=== PATIENT | female | born 1945 | race Caucasian/White ===

== ENCOUNTER → 2016-12-31 | Outpatient (CLI) | payer OTHER, MEDICARE ==
[~2016-12-31] MED LIST: ASPEC325 PO; ATV/1 PO; BUTA-56 PO; CALC12502 PO; CHOL100010 PO; FISHOIL PO; FLUO20CA35 PO; FLUO40CA8 PO; FOLI400T41 PO; FURO40TA3 PO; HYDR-3124 PO; MULT-506 PO; ONDA8TAB62 SL; OXYC-106 PO; PHEN-876 PO; PHN/25 PO; PRAV10TA39 PO; RISE150T PO; SAMBUCOL SL; SIME80CH PO; SNK PO; SPIR50TA3 PO; ZOLP10TA PO
[2016-12-31 14:06] LABS: ALT/SGPT 34 U/L (12-78); AST/SGOT 25 U/L (15-37); BLOOD UREA NITROGEN 16 mg/dl (7-18); CALCIUM 9.5 mg/dl (8.5-10.1); CARBON DIOXIDE 24 mmol/L (21-32); CHLORIDE 106 mmol/L (98-107); CHOLESTEROL 203 mg/dl (0-200); CREATININE 0.86 mg/dl (0.60-1.20); GLUCOSE 111 mg/dl (70-99); POTASSIUM 3.5 mmol/L (3.5-5.1); SODIUM 141 mmol/L (136-145); TRIGLYCERIDES 195 mg/dl (0-150); VERY LOW DENSITY LIPOPROT CALC 39 mg/dl
[2016-12-31 14:12] LABS: ALB/GLOB RATIO 1.3 (0.9-2); ALKALINE PHOSPHATASE 80 U/L (45-117); CHOLESTEROL/HDL RATIO 5.3; HDL CHOLESTEROL 38 mg/dl; LDL CHOLESTEROL CALCULATED 126 mg/dl
[2016-12-31 14:20] LABS: ESTIMATED AVERAGE GLUCOSE 123 mg/dl; HA1C FLAG Normal (Normal)
--- NOTE | 2017-01-05 10:46 | CODING QUERY MEDICAL NECESSITY ---
SUPPORTING DIAGNOSIS NEEDED A supporting diagnosis is required for the test/procedure performed on this patient in order for us to be reimbursed by the patient's insurance. Please provide a supporting diagnosis for the following test/procedure listed below next to the test name along with your signature. *If there is no additional diagnosis for this patient that would support the following test/procedure please document that below next to the test/procedure. Test(s)/Procedure(s) that require a supporting diagnosis: * GLYCATED HEMOGLOBIN DIAGNOSIS: * DOS: 12/31/16 Provider Signature: Date: Thank you Katherine Dye Health Information Management Once completed, please kindly fax back to [phone] For questions please call [phone]
== END | disposition home or self-care (01) ==
LOC: C.LABBC 10:40
PROVIDERS: ATTEND Internal Medicine
DX: Z00.00 Encounter for general adult medical examination without abnormal findings (principal); M81.0 Age-related osteoporosis without current pathological fracture; E78.5 Hyperlipidemia, unspecified; I10 Essential (primary) hypertension; R73.03 Prediabetes

== ENCOUNTER → 2017-01-08 | Outpatient (CLI) | payer OTHER, MEDICARE ==
[~2017-01-08] MED LIST changes: +OPTIRAY 320 IV PRN
--- NOTE | 2017-01-08 14:23 | DIAGNOSTIC IMAGING REPORT ---
CT ABD/PELVIS IV CONTRAST ONLY CLINICAL HISTORY: Lower abdominal pain. COMPARISON STUDY: 01/13/2013 TECHNIQUE: Following the IV administration of 117 mL of Optiray-320, CT scan of the abdomen and pelvis was performed from the lung bases to the proximal femurs. Images are reviewed in the axial, sagittal, and coronal planes. IV contrast was administered without complication. CT DOSE: 549.40 mGy.cm FINDINGS: Lower chest: The heart is normal in size and configuration, without pericardial effusion. The lung bases and pleural spaces are clear. Liver: There is mild hepatic steatosis. No focal masses are visualized. Gallbladder: Unremarkable. Spleen: There is an area of scarring involving the lower pole the spleen. Pancreas: Unremarkable. Adrenal glands: Unremarkable. Kidneys: There are bilateral renal cysts. The largest cyst in the left measures 7.8 cm. The largest cyst on the right measures 39 mm. There is an indeterminate 9 mm lower pole right renal hypodensity which exceeds water attenuation. This has a Hounsfield attenuation value of 65. This lesion was present on the prior 2012 study when it measured 8 mm. Bowel: There are no transition zones indicate bowel obstruction. There is no evidence of acute diverticulitis. The appendix is felt to be normal. Peritoneum: There is no intraperitoneal free air or abdominal ascites. Vasculature: The abdominal aorta is normal in course and caliber. Adenopathy: None. Pelvic viscera: The uterus appears surgically absent. 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 IMPRESSION: 1. No evidence of bowel obstruction. No evidence of free air 2. Normal appendix 3. Mild hepatic steatosis 4. Lower pole splenic scarring 5. Bilateral renal cysts 6. Indeterminate 9 mm lower pole right renal hypodensity. This lesion measures 8 mm and 2013 7. Surgically absent uterus Electronically signed by: Rashard Garcia M.D. 01/08/2017 2:22 PM Dictated Date/Time: 01/08/2017 2:04 PM
== END | disposition home or self-care (01) ==
LOC: C.CTS 12:53
PROVIDERS: ATTEND Internal Medicine
DX: R10.9 Unspecified abdominal pain (principal); K76.0 Fatty (change of) liver, not elsewhere classified; N28.1 Cyst of kidney, acquired

== ENCOUNTER → 2017-03-11 | Outpatient (CLI) | payer OTHER, MEDICARE ==
[~2017-03-11] MED LIST changes: -OPTIRAY 320 IV PRN
== END | disposition home or self-care (01) ==
LOC: C.PATHSPEC 17:29
PROVIDERS: ATTEND Dentist Oral and Maxillofacial Surgery
DX: M27.2 Inflammatory conditions of jaws (principal)

== ENCOUNTER → 2017-07-01 | Outpatient (CLI) | payer OTHER, MEDICARE ==
--- NOTE | 2017-07-01 16:45 | DIAGNOSTIC IMAGING REPORT ---
LUMBAR SPINE W/O CONTRAST CLINICAL HISTORY: 71 years-old Female presenting with SPINAL STENOSIS. TECHNIQUE: Multisequence, multiplanar MR imaging of the lumbar spine was performed without the use of intravenous contrast. IV contrast: None. COMPARISON: 05/08/[address] from 01/08/2017. FINDINGS: Localizer images: Multiple bilateral renal cysts, the largest on the left measuring over 8 cm. Dextroscoliotic curvature of the lumbar spine. Normal lumbar lordosis. T2 hyperintense, T1 hypointense endplate changes noted eccentrically on the left at L2-3 consistent with bony edema. This was present on prior exam, although slightly increased from prior. There is also increased signal intensity within the L2-3 disc at this level. No significant paraspinal inflammatory change. Remaining vertebral bodies demonstrate normal height, alignment, and bone marrow signal intensity. Intervertebral disc desiccation noted at L1-2. Altered level degenerative changes detailed below: L1-2: Small disc bulge, ligamentum flavum hypertrophy, and right facet arthropathy results in mild bilateral neural foraminal narrowing. Mild effacement of the ventral thecal sac without significant spinal canal narrowing. L2-3: Disc bulge and ligamentum flavum hypertrophy result in mild right and moderate left neural foraminal narrowing. Mild circumferential effacement of the thecal sac with preservation of CSF. L3-4: Disc bulge, ligamentum flavum hypertrophy, and left greater than right facet arthropathy result in mild right and moderate to severe left neural foraminal narrowing. Mass effect on the exiting left L3 nerve root. Near complete effacement of the thecal sac secondary to circumferential spinal canal narrowing. L4-5: Disc bulge, ligament flavum hypertrophy, and facet arthropathy result in mild right neural foraminal narrowing and near complete effacement of the thecal sac secondary to circumferential spinal canal narrowing. L5-S1: Disc bulge with eccentric per disc protrusion on the right causing right lateral recess effacement. Slight cranial migration also noted of the protruded disc fragment. This is new from prior exam. This results in mass effect on the exiting right L5 nerve root, although the neural foramina overall are not significantly narrowed. Right greater than left facet arthropathy also noted. Spinal cord ends in good position at the superior endplate of L1. Cauda equina has a buckled appearance that is not is similar to prior exam. No paraspinal edema noted. IMPRESSION: 1. Multilevel degenerative changes, the majority which have not progressed since the prior exam in 2016. However, interval development of new right eccentric disc protrusion with cranial migration at L5-S1 with resultant mass effect on the exiting right L5 nerve root. 2. Varying degrees of neural foraminal and spinal canal narrowing as above. 3. Endplate edema eccentrically on the left at L2-3 with associated increased signal intensity within the L2-3 disc. Although these changes are increased from prior, some degree was present on the prior exam. This is felt to most likely be degenerative in etiology in the absence of infectious symptoms. Electronically signed by: Mike Craig M.D. 07/01/2017 4:44 PM Dictated Date/Time: 07/01/2017 4:33 PM
== END | disposition home or self-care (01) ==
LOC: C.MRIBC 15:44
PROVIDERS: ATTEND Orthopaedic Surgery Orthopaedic Surgery of the Spine
DX: M48.06 Spinal stenosis, lumbar region (principal); Z12.31 Encounter for screening mammogram for malignant neoplasm of breast

== ENCOUNTER → 2017-07-01 | Outpatient (CLI) | payer OTHER, MEDICARE ==
--- NOTE | 2017-07-02 14:31 | MAMMOGRAPHY REPORT ---
BILATERAL DIGITAL SCREENING MAMMOGRAM TOMOSYNTHESIS WITH CAD: 07/01/2017 CLINICAL HISTORY: Asymptomatic. Personal history of breast cancer. TECHNIQUE: Breast tomosynthesis in addition to standard 2D mammography was performed. Current study was also evaluated with a Computer Aided Detection (CAD) system. COMPARISON: Comparison is made to exams dated: 06/25/2016 mammogram, 05/13/2015 mammogram, 05/10/2014 m ammogram, 05/09/2013 mammogram, 03/30/2012 mammogram, and 03/26/2011 mammogram - [facility] enter. BREAST COMPOSITION: The tissue of both breasts is almost entirely fatty. FINDINGS: No suspicious masses, calcifications, or areas of architectural distortion are noted in ei ther breast. There has been no significant interval change compared to prior exams. There are stable postsurgical changes in the left breast from prior lumpectomy, including coarse benign dystrophic ca lcifications at the lumpectomy bed. IMPRESSION: ACR BI-RADS CATEGORY 2: BENIGN There is no mammographic evidence of malignancy. A 1 year screening mammogram is recommended. The pa tient will receive written notification of the results. Approximately 10% of breast cancers are not detected with mammography. A negative mammographic report should not delay biopsy if a clinically suggestive mass is present. Qiana Burrows M.D. /:07/01/2017 15:36:57 Creative/Art Director: Shay Santana M, [facility] letter sent: Normal 1/2 BI-RADS Code: ACR BI-RADS Category 2: Benign
== END | disposition home or self-care (01) ==
LOC: C.MAMM 14:02
PROVIDERS: ATTEND Obstetrics & Gynecology
DX: Z12.31 Encounter for screening mammogram for malignant neoplasm of breast (principal)

== ENCOUNTER → 2017-07-23 | Outpatient (CLI) | payer OTHER, MEDICARE ==
[2017-07-23 16:56] LABS: ALT/SGPT 27 U/L (12-78); BLOOD UREA NITROGEN 21 mg/dl (7-18); BUN/CREATININE RATIO 21.2 (10-20); CALCIUM 10.1 mg/dl (8.5-10.1); CARBON DIOXIDE 30 mmol/L (21-32); CHLORIDE 103 mmol/L (98-107); CHOLESTEROL 240 mg/dl (0-200); CREATININE 0.97 mg/dl (0.60-1.20); GLUCOSE 105 mg/dl (70-99); POTASSIUM 3.4 mmol/L (3.5-5.1); SODIUM 140 mmol/L (136-145); TRIGLYCERIDES 202 mg/dl (0-150); VERY LOW DENSITY LIPOPROT CALC 40 mg/dl
[2017-07-23 16:59] LABS: ALB/GLOB RATIO 1.2 (0.9-2); ALKALINE PHOSPHATASE 68 U/L (45-117); AST/SGOT 23 U/L (15-37); CHOLESTEROL/HDL RATIO 5.9; HDL CHOLESTEROL 41 mg/dl; LDL CHOLESTEROL CALCULATED 159 mg/dl
[2017-07-24 08:56] LABS: ESTIMATED AVERAGE GLUCOSE 120 mg/dl; HA1C FLAG Normal (Normal)
== END | disposition home or self-care (01) ==
LOC: C.LABBC 13:12
PROVIDERS: ATTEND Internal Medicine
DX: E78.5 Hyperlipidemia, unspecified (principal); R73.03 Prediabetes

== ENCOUNTER → 2017-11-29 | Outpatient (CLI) | payer OTHER, MEDICARE ==
[2017-11-29 17:19] LABS: BLOOD UREA NITROGEN 18 mg/dl (7-18); CALCIUM 9.4 mg/dl (8.5-10.1); CARBON DIOXIDE 28 mmol/L (21-32); CREATININE 0.95 mg/dl (0.60-1.20); GLUCOSE 93 mg/dl (70-99); POTASSIUM 3.7 mmol/L (3.5-5.1); SODIUM 138 mmol/L (136-145)
== END | disposition home or self-care (01) ==
LOC: C.LABBC 13:24
PROVIDERS: ATTEND Internal Medicine
DX: E87.6 Hypokalemia (principal)

== ENCOUNTER → 2018-01-11 | Outpatient (CLI) | payer OTHER, MEDICARE | END | disposition home or self-care (01) | LOC: C.LABSPEC 16:12 | PROVIDERS: ATTEND Physician Assistant | DX: J34.89 Other specified disorders of nose and nasal sinuses (principal) ==

== ENCOUNTER → 2018-03-28 | Outpatient (CLI) | payer OTHER, MEDICARE ==
[2018-03-28 17:06] LABS: ALT/SGPT 31 U/L (12-78); AST/SGOT 24 U/L (15-37); BLOOD UREA NITROGEN 20 mg/dl (7-18); CALCIUM 9.2 mg/dl (8.5-10.1); CARBON DIOXIDE 26 mmol/L (21-32); CHOLESTEROL 227 mg/dl (0-200); CREATININE 0.89 mg/dl (0.60-1.20); GLUCOSE 93 mg/dl (70-99); POTASSIUM 3.6 mmol/L (3.5-5.1); SODIUM 140 mmol/L (136-145)
[2018-03-28 17:10] LABS: LDL CHOLESTEROL CALCULATED 134 mg/dl
[2018-03-29 06:08] LABS: HEMOGLOBIN A1C 5.7 % (4.5-5.6)
== END | disposition home or self-care (01) ==
LOC: C.LABBC 13:25
PROVIDERS: ATTEND Internal Medicine
DX: E78.5 Hyperlipidemia, unspecified (principal); I10 Essential (primary) hypertension; R73.03 Prediabetes

== ENCOUNTER → 2018-06-01 | Outpatient (CLI) | payer OTHER, MEDICARE ==
[~2018-06-01] MED LIST changes: -ASPEC325 PO; -ATV/1 PO; +ATV2 PO; -BUTA-56 PO; -CALC12502 PO; -CHOL100010 PO; +CHOL1TAB42 PO; +CYM30 PO; -FISHOIL PO; -FLUO20CA35 PO; -FLUO40CA8 PO; -FOLI400T41 PO; +FOLI800T PO; +NITR-5 PO; +OMEG10007 PO; -ONDA8TAB62 SL; -OXYC-106 PO; +OYST500T47 PO; -PHEN-876 PO; -PHN/25 PO; -PRAV10TA39 PO; +PROM25TA9 PO; +PRVC/20 PO; -SAMBUCOL SL; -SIME80CH PO; -SNK PO; -SPIR50TA3 PO; +SPIR50TA5 PO
[2018-06-01 17:51] LABS: BASO % 0.6 %; BASO ABS # 0.05 K/uL (0-0.2); EOS % 2.8 %; EOS ABS # 0.22 K/uL (0-0.5); HEMATOCRIT 43.8 % (37-47); IG# 0.02 K/uL (0.00-0.02); LYMPH % 38.7 %; LYMPH ABS # 3.08 K/uL (1.2-3.4); MEAN CELL VOLUME 86.4 fL (80-100); MEAN CORPUSCULAR HEMOGLOBIN 29.6 pg (25-34); MEAN CORPUSCULAR HGB CONC 34.2 g/dl (32-36); MEAN PLATELET VOLUME 10.6 fL (7.4-10.4); MONO % 8.4 %; MONO ABS # 0.67 K/uL (0.11-0.59); NEUT % 49.2 %; NEUT ABS # 3.92 K/uL (1.4-6.5); PLATELET COUNT 291 K/uL (130-400); RED CELL DISTRIBUTION WIDTH CV 12.6 % (11.5-14.5); RED CELL DISTRIBUTION WIDTH SD 40.1 fL (36.4-46.3); WHITE BLOOD COUNT 7.96 K/uL (4.8-10.8)
[2018-06-01 18:05] LABS: BLOOD UREA NITROGEN 17 mg/dl (7-18); CALCIUM 9.2 mg/dl (8.5-10.1); CARBON DIOXIDE 29 mmol/L (21-32); CREATININE 0.89 mg/dl (0.60-1.20); GLUCOSE 84 mg/dl (70-99); SODIUM 137 mmol/L (136-145)
== END | disposition home or self-care (01) ==
LOC: C.LAB1850 16:44
PROVIDERS: ATTEND Nurse Practitioner Adult Health
DX: I10 Essential (primary) hypertension (principal); E87.6 Hypokalemia; N39.0 Urinary tract infection, site not specified; R11.2 Nausea with vomiting, unspecified

== ENCOUNTER → 2018-06-03 | Outpatient (CLI) | payer OTHER, MEDICARE ==
[~2018-06-03] MED LIST changes: -NITR-5 PO
[2018-06-03 17:16] LABS: BLOOD UREA NITROGEN 18 mg/dl (7-18); CALCIUM 9.3 mg/dl (8.5-10.1); CARBON DIOXIDE 27 mmol/L (21-32); CREATININE 0.84 mg/dl (0.60-1.20); GLUCOSE 103 mg/dl (70-99); SODIUM 142 mmol/L (136-145)
== END | disposition home or self-care (01) ==
LOC: C.LABBC 12:54
PROVIDERS: ATTEND Nurse Practitioner Adult Health
DX: E87.6 Hypokalemia (principal); I10 Essential (primary) hypertension

== ENCOUNTER → 2018-06-13 | Outpatient (CLI) | payer OTHER, MEDICARE ==
[2018-06-13 17:13] LABS: BLOOD UREA NITROGEN 21 mg/dl (7-18); CALCIUM 9.4 mg/dl (8.5-10.1); CARBON DIOXIDE 27 mmol/L (21-32); CREATININE 0.92 mg/dl (0.60-1.20); GLUCOSE 119 mg/dl (70-99); POTASSIUM 3.8 mmol/L (3.5-5.1); SODIUM 137 mmol/L (136-145)
== END | disposition home or self-care (01) ==
LOC: C.LABBC 14:50
PROVIDERS: ATTEND Nurse Practitioner Adult Health
DX: E87.6 Hypokalemia (principal); I10 Essential (primary) hypertension

== ENCOUNTER → 2018-07-04 | Outpatient (CLI) | payer OTHER, MEDICARE ==
--- NOTE | 2018-07-05 06:58 | MAMMOGRAPHY REPORT ---
BILATERAL DIGITAL SCREENING MAMMOGRAM TOMOSYNTHESIS WITH CAD: 07/04/2018 CLINICAL HISTORY: Asymptomatic. Personal history of breast cancer. TECHNIQUE: The study was acquired using full field digital technology and interpreted from soft copy. Breast tomosynthesis in addition to standard 2D mammography was performed. Current study was also ev aluated with a Computer Aided Detection (CAD) system. COMPARISON: Comparison is made to exams dated: 07/01/2017 mammogram, 06/25/2016 mammogram, 05/13/2015 m ammogram, 05/10/2014 mammogram, 05/09/2013 mammogram, and 03/30/2012 mammogram - [facility] enter. BREAST COMPOSITION: The tissue of both breasts is almost entirely fatty. FINDINGS: There is evidence of prior left breast and axillary surgery, with expected architectural di stortion, surgical clips and dystrophic calcification in the central left breast and surgical clips p rojecting over the superior left pectoralis muscle on the MLO view. There are mild vascular calcific ations in the left breast. No new suspicious mass, architectural distortion or cluster of microcalcif ications is seen bilaterally. IMPRESSION: ACR BI-RADS CATEGORY 1: NEGATIVE There is no mammographic evidence of malignancy. A 1 year screening mammogram is recommended.( 019) The patient will receive written notification of the results. Some breast cancers are not detected with mammography. A negative mammographic report should not robert y biopsy if a clinically suggestive mass is present. Rakel Valladares M.D. ay/:07/04/2018 16:08:51 Air Reduction Equipment Operator: RT Damian(Shay)(M), [facility] letter sent: Normal 1/2 BI-RADS Code: ACR BI-RADS Category 1: Negative
== END | disposition home or self-care (01) ==
LOC: C.MAMM 13:54
PROVIDERS: ATTEND Obstetrics & Gynecology
DX: Z12.31 Encounter for screening mammogram for malignant neoplasm of breast (principal)

== ENCOUNTER → 2018-07-07 | Outpatient (CLI) | payer OTHER, MEDICARE ==
[2018-07-07 16:59] LABS: BLOOD UREA NITROGEN 19 mg/dl (7-18); CALCIUM 10.1 mg/dl (8.5-10.1); CARBON DIOXIDE 28 mmol/L (21-32); CREATININE 0.84 mg/dl (0.60-1.20); GLUCOSE 92 mg/dl (70-99); POTASSIUM 3.4 mmol/L (3.5-5.1); SODIUM 137 mmol/L (136-145)
== END | disposition home or self-care (01) ==
LOC: C.LAB1850 15:19
PROVIDERS: ATTEND Internal Medicine Rheumatology
DX: E87.6 Hypokalemia (principal)

== ENCOUNTER 2024-07-03 15:40 | Inpatient (IN) ==
--- NOTE | 2024-07-03 16:00 | ED Triage Note ---
Date of Service July 03, 2024 Provider in Triage Author: Abi Delgado History of Present Illness This patient was briefly evaluated while in triage. An abbreviated physical exam was performed. This patient is a 78-year-old Female who presents to the ED for evaluation of "everything." States 5 days ago, she fell while getting up from the toilet. Landed on her ribs on the right side (rib fx 8 weeks ago.) Also c/o swelling of the right ankle that started 2 days ago. Physical Exam VITALS: Vitals are noted on the nurse's note and reviewed by myself. GENERAL: This is a 78 year old female, in no acute distress, nondiaphoretic, well-developed well-nourished. SKIN: No obvious rashes, edema, erythema HEAD: Normocephalic atraumatic. EYES: Conjunctivae without injection, sclerae without icterus. NECK: No JVD. LUNGS: No retractions or accessory muscle use. MUSCULOSKELETAL: Normal gait. NEURO: Patient was alert and oriented to person place and time. No focal neurological deficits. Initial orders for labs and / or imaging were placed and patient was placed in the waiting area until a bed is available. Please see further documentation for the full ED course.
--- NOTE | 2024-07-03 17:05 | XRay Report ---
XR ribs RT min 2V w CXR1V CLINICAL HISTORY: pain, fall 5 days ago. Right anterior rib pain. COMPARISON STUDY: Chest and right rib series 06/28/2024. FINDINGS: No pneumothorax. No pleural effusions. No focal lung consolidations to suggest a pneumonia. No evidence for pulmonary edema. The heart is normal in size. A moderate hiatus hernia is again note d. Healing right lateral eighth rib fractures again noted. There are acute right anterior lateral efra th and 10th rib fractures. IMPRESSION: 1. Acute right anterolateral ninth and 10th rib fractures. No pneumothorax. 2. Healing right lateral eighth rib fracture again noted. ACT 112: Negative or not required by law. Electronically signed by: Aiden Lindsay M.D. 07/03/2024 5:04 PM
--- NOTE | 2024-07-03 17:13 | XRay Report ---
RIGHT ANKLE 3 VIEWS CLINICAL HISTORY: Recent fall. Right ankle pain. FINDINGS: 3 views of the right ankle are obtained. No prior studies are available for comparison at t he time of dictation. The skeletal structures are osteopenic. No fracture is seen. The ankle mortise is intact. No joint effusion is identified. Soft tissue swelling is seen around the ankle, greatest o verlying the lateral malleolus. IMPRESSION: Soft tissue swelling with no radiographic evidence of acute fracture. Electronically signed by: Remigio Preston M.D. 07/03/2024 5:12 PM
[2024-07-03] MEDS: LIDOCAINE 5% 1 PATCH TD STA (17:49)
[2024-07-03] MEDS: ONDANSETRON 4 MG OD TAB PO STA (18:27)
[2024-07-03] MEDS: oxyCODONE HCL IR 5 MG TAB (IMMEDIATE RELEASE) PO STA (18:27)
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
[2024-07-03 19:32] LABS: Appearance Urine Clear (Clear); Bacteria Urine Automated None Seen (None Seen); Bilirubin Urine Negative (Negative); Blood Urine Negative (Negative); Cast Urine Automated 0-2 /lpf (0-2); Color Urine Yellow; Epithelial Cell Urine Auto 0-2 /hpf (0-2); Glucose Urine UA Negative (Negative); Ketones Urine Negative (Negative); Leukocyte Esterase Urine 1+ (Negative); Nitrite Urine Negative (Negative); Protein Urine Negative (Negative); RBC Urine Automated 0-2 /hpf (0-2); Specific Gravity Urine 1.024 (1.000-1.030); Urobilinogen Urine Negative (Negative); pH Urine 5.5 (4.5-7.5)
--- NOTE | 2024-07-03 20:19 | Ultrasound Report ---
Exam(s): US VENOUS RIGHT LOWER EXTREMITY EXAM: US Duplex Right Lower Extremity Veins CLINICAL HISTORY: Reason for exam: right leg swelling. TECHNIQUE: Real-time duplex ultrasound scan of the right lower extremity veins integrating B-mode two-dimensional vascular structure, Doppler spectral analysis, color flow Doppler imaging and compression. COMPARISON: No relevant prior studies available. FINDINGS: Deep veins: Unremarkable. No DVT in the visualized common femoral, femoral, proximal deep femoral or popliteal veins. The veins demonstrate normal color flow, are normally compressible, with normal phasic flow and/or augmentation response. Superficial veins: Unremarkable. No thrombus in the visualized great saphenous vein. Soft tissues: No acute findings. No popliteal cyst. IMPRESSION: Normal right lower extremity duplex venous ultrasound. Electronically signed by: Romeo Luong MD 07/03/24 20:18 PM
--- NOTE | 2024-07-03 20:22 | CT Scan Report ---
Exam(s): CT C SPINE EXAM: CT Cervical Spine Without Intravenous Contrast CLINICAL HISTORY: Reason for exam: fall. TECHNIQUE: Axial computed tomography images of the cervical spine without intravenous contrast. CTDI is 25.13 mGy and DLP is 474.53 mGy-cm. Automated exposure control was utilized for the study. A dose lowering technique was utilized adhering to the principles of ALARA. COMPARISON: No relevant prior studies available. FINDINGS: Vertebrae: Unremarkable. No acute fracture. Discs/spinal canal/neural foramina: Mild to moderate degenerative disc disease changes seen in the cervical spine. No spinal canal stenosis. Soft tissues: Unremarkable. IMPRESSION: No acute fracture Electronically signed by: Romeo Luong MD 07/03/24 20:21 PM
--- NOTE | 2024-07-03 20:24 | CT Scan Report ---
Exam(s): CT HEAD Without Contrast EXAM: CT Head Without Intravenous Contrast CLINICAL HISTORY: Reason for exam: fall. TECHNIQUE: Axial computed tomography images of the head/brain without intravenous contrast. CTDI is 36.79 mGy and DLP is 624.41 mGy-cm. Automated exposure control was utilized for the study. A dose lowering technique was utilized adhering to the principles of ALARA. COMPARISON: No relevant prior studies available. 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 No hemorrhage. Ventricles: Unremarkable. No ventriculomegaly. Bones/joints: Unremarkable. No acute fracture. Soft tissues: Unremarkable. Sinuses: Unremarkable as visualized. No acute sinusitis. Mastoid air cells: Unremarkable as visualized. No mastoid effusion. IMPRESSION: No acute findings in the head/brain. Electronically signed by: Romeo Luong MD 07/03/24 20:23 PM
--- NOTE | 2024-07-03 21:15 | Emergency Department Note ---
ED Visit Note I was consulted by the Advanced Practice Provider, REJI Martinez. I performed a substantive portion of the visit. This includes aspects of: History: Patient is a 78-year-old female presenting with right rib pain. Patient reports that 3 days ago she had a fall and landed on her right rib area and has been having increasing pain in that area. Reports that when she takes a deep breath that hurts worse. She also reporting some swelling in her bilateral lower extremities but worse on the right side. She denies any headache or changes in vision. She is not on any anticoagulation. Denies any recent cough or fevers. MDM: Very thorough workup was performed by the midlevel provider, including CT head and CT cervical spine which were both negative, ultrasound of the lower extremities was negative for DVT, as well as x-rays of the chest which showed acute right ninth and 10th rib fractures. Patient is emotionally labile and is expressing concern about going home because "something else must be wrong." She reports that she does not feel like she could go home like this. Explained to the patient that her workup is grossly unremarkable other than her 2 acute rib fractures. However, she does report multiple new complaints on reassessment. Will admit to hospital service for further evaluation and management. On my assessment in the ER, she is now also complaining of diffuse generalized joint aches and said this has been ongoing for the last few days. Denies any recent tick exposures. IV access was obtained and basic laboratory workup, including Lyme and further tickborne illness testing was ordered. Patient also now complaining of pain in her right lateral pelvis and x-ray of the pelvis was ordered..
[2024-07-03 22:22] LABS: Basophils # (auto) 0.03 K/uL (0.00-0.20); Basophils % (auto) 0.5 %; Eosinophils # (auto) 0.15 K/uL (0.00-0.50); Eosinophils % (auto) 2.5 %; Hematocrit (blood only) 33.3 % (37.0-47.0); Hemoglobin 10.4 g/dl (12.0-16.0); Immature Granulocytes # (auto) 0.03 K/uL (0.01-0.20); Immature Granulocytes % (auto) 0.5 %; Lymphocytes # (auto) 1.91 K/uL (1.20-3.40); Lymphocytes % (auto) 31.6 %; Mean Corpuscular Hemoglobin 24.8 pg (25.0-34.0); Mean Corpuscular Hgb Conc 31.2 g/dL (32.0-36.0); Mean Corpuscular Volume 79.5 fL (80.0-100.0); Mean Platelet Volume 9.6 fL (9.4-12.4); Monocytes # (auto) 0.62 K/uL (0.11-0.59); Monocytes % (auto) 10.2 %; Neutrophils # (auto) 3.31 K/uL (1.40-6.50); Neutrophils % (auto) 54.7 %; Platelet Count 217 K/uL (130-400); RDW Coefficient of Variation 17.6 % (11.5-14.5); RDW Standard Deviation 50.8 fL (36.4-46.3); Red Blood Count 4.19 M/uL (4.20-5.40); White Blood Count 6.05 K/ul (4.8-10.8)
[2024-07-03 22:40] LABS: Albumin Globulin Ratio 1.6 (0.9-2); BUN Creatinine Ratio 22.2 (10-20); Bilirubin,Total 0.4 mg/dl (0.2-1.0); Calcium 8.7 mg/dl (8.6-10.3); Creatinine Clr Calc Pharmacy 60.5 ml/min; Est GFR (African American) 81.8 ml/min; Est GFR (Non-African American) 70.5 ml/min; Globulin 2.5 gm/dl (2.5-4.0); Potassium 3.1 mmol/L (3.5-5.1); Total Protein 6.5 gm/dl (6.0-8.3)
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
[2024-07-04] MEDS ORDERED: BACLOFEN 10 MG TAB PO PRN (00:04)
[2024-07-04 00:30] LABS: Magnesium 2.1 mg/dl (1.7-2.4)
[2024-07-04] MEDS: LIDOCAINE 5% OINT 30 GM TUBE EXT STA (00:49)
[2024-07-04] MEDS ORDERED: ONDANSETRON 4 MG OD TAB PO PRN (01:31)
[2024-07-04] MEDS ORDERED: ALBUT/IPRATROP 3MG/0.5MG NEB 3 ML VIAL INH PRN (01:31)
[2024-07-04] MEDS ORDERED: BENZONATATE 100 MG CAPSULE PO PRN (01:31)
[2024-07-04] MEDS ORDERED: ALBUTEROL HFA 8 GM INHALER INH PRN (01:31)
[2024-07-04] MEDS ORDERED: hydrOXYzine HCl 25 MG TAB PO PRN (01:31)
[2024-07-04] MEDS ORDERED: PROMETHAZINE HCL 25 MG TAB PO PRN (01:31)
[2024-07-04] MEDS ORDERED: ARTIFICIAL TEARS OP PRN (01:43)
[2024-07-04] MEDS ORDERED: LORazepam 1 MG TAB PO PRN (01:44)
[2024-07-04] MEDS: ACETAMINOPHEN 325 MG TAB PO PRN (01:50)
[2024-07-04] MEDS: cefTRIAXone SODIUM 2,000 MG/50 ML BAG IV STA (02:11)
[2024-07-04] MEDS: POTASSIUM CHLORIDE / WTR 10 MEQ/100 ML PLCT IV SCH (02:41)
[2024-07-04] MEDS: ZOLPIDEM TARTRATE 5 MG TAB PO ONE (03:14)
[2024-07-04] MEDS: oxyCODONE HCL IR 5 MG TAB (IMMEDIATE RELEASE) PO STA (03:19)
[2024-07-04 06:29] LABS: Basophils # (auto) 0.03 K/uL (0.00-0.20); Basophils % (auto) 0.5 %; Eosinophils # (auto) 0.18 K/uL (0.00-0.50); Eosinophils % (auto) 3.3 %; Hematocrit (blood only) 32.2 % (37.0-47.0); Hemoglobin 10.1 g/dl (12.0-16.0); Immature Granulocytes # (auto) 0.03 K/uL (0.01-0.20); Immature Granulocytes % (auto) 0.5 %; Lymphocytes % (auto) 36.2 %; Mean Corpuscular Hemoglobin 24.9 pg (25.0-34.0); Mean Corpuscular Hgb Conc 31.4 g/dL (32.0-36.0); Mean Corpuscular Volume 79.5 fL (80.0-100.0); Mean Platelet Volume 9.6 fL (9.4-12.4); Monocytes # (auto) 0.55 K/uL (0.11-0.59); Monocytes % (auto) 9.9 %; Neutrophils # (auto) 2.74 K/uL (1.40-6.50); Neutrophils % (auto) 49.6 %; Platelet Count 215 K/uL (130-400); RDW Coefficient of Variation 17.8 % (11.5-14.5); RDW Standard Deviation 51.5 fL (36.4-46.3); Red Blood Count 4.05 M/uL (4.20-5.40); White Blood Count 5.53 K/ul (4.8-10.8)
[2024-07-04 06:40] LABS: Albumin Level 3.7 gm/dl (3.4-5.0); BUN Creatinine Ratio 18.9 (10-20); Calcium 8.2 mg/dl (8.6-10.3); Creatinine Clr Calc Pharmacy 53.2 ml/min; Est GFR (Non-African American) 62.1 ml/min; Phosphorus 3.9 mg/dl (2.5-4.9); Potassium 3.7 mmol/L (3.5-5.1)
[2024-07-04] MEDS: ACETAMINOPHEN 500 MG TAB PO SCH (06:42)
[2024-07-04] MEDS: DICLOFENAC SOD 1% GEL 100 GM TUBE EXT SCH (07:51)
[2024-07-04] MEDS: LIDOCAINE 5% OINT 30 GM TUBE EXT SCH (07:51)
[2024-07-04] MEDS: DULoxetine HCL 60 MG CAP PO SCH (07:52)
[2024-07-04] MEDS: BUDESONIDE EC 3 MG CAP PO SCH (07:52)
[2024-07-04] MEDS: PRAVASTATIN SOD 40 MG TAB PO SCH (07:52)
[2024-07-04] MEDS: PANTOprazole 40 MG TAB PO SCH (07:52)
[2024-07-04] MEDS: SPIRONOLACTONE 25 MG TAB PO SCH (07:53)
--- NOTE | 2024-07-04 08:09 | XRay Report ---
SINGLE VIEW PELVIS; SINGLE VIEW RIGHT HIP CLINICAL HISTORY: Falls. Right hip pain. FINDINGS: An AP view of the pelvis and a frog-leg view of the right hip are correlated with pelvic CT dated 01/08/2017. The skeletal structures are osteopenic. There is no radiographic evidence of acute fracture involving the hips or bony pelvis. Mild arthritic change and joint space narrowing is seen i n the hips. The sacroiliac joints are normal. There is mild sclerotic change seen in the pubic symphy sis. Lumbosacral spondylosis is partially visualized. The overlying soft tissues are within normal li mits. Numerous phleboliths are seen in the pelvis. IMPRESSION: No acute bony abnormality is identified. Electronically signed by: Remigio Preston M.D. 07/04/2024 8:08 AM
--- NOTE | 2024-07-04 14:04 | Hospitalist Progress Note ---
Date of Service July 04, 2024 Assessment & Plan (1) Multiple fractures of ribs of right side: Plan: Patient presented to the ED on 07/03 for right sided rib cage pain after following off the toilet 1 week ago. Reviewed ribs/CXR 07/03: acute right anterolateral 9th and 10th rib fx. no pneumothorax. healing right lateral 8th rib fx noted. Unable to use Lidoderm patch due to allergy Trial of Lidoderm 5% gel twice daily Baclofen 5 mg p.o. 3 times daily as needed associated muscle spasm Acetaminophen 650 mg by mouth every 6 hours as needed for mild pain or fever Oxycodone 5 mg p.o. every 6 hours as needed for moderate pain (2) UTI (urinary tract infection): Plan: Stop Macrodantin, as it does not appear to be working, and likely is causing some contribution to imbalance Follow urine culture and sensitivity Ceftriaxone 2 g IV daily Reviewed CBC 07/04: WBC stable, hgb 10.1 AM CBC (3) Bilateral lower extremity edema: Plan: Patient endorses about 1 week of b/l LE edema Lasix on hold due to hypokalemia but was previously not taking for about 3 days due to urinary symptoms B/L Doppler reviewed 07/04: negative for acute DVT Echo reviewed 07/04: EF 60-65%, Mild panvalvular regurgitation (4) Hypokalemia: Plan: Potassium 3.1 on admission, magnesium 2.1 Likely contributing to abnormal sensations in hands and feet Give potassium chloride 10 mEq IV x 2, and recheck laboratories in a.m. Hold furosemide, continue spironolactone reviewed BMP 07/04: K 3.7, Mag 2 AM BMP Plan Chronic conditions: Anxiety- Continue duloxetine Vertigo/allergic symptoms- Multifactorial including all of the above, Continue albuterol sulfate HFA as needed, Tessalon Perles as needed Hydroxyzine as needed Microscopic colitis- Continue budesonide and omeprazole/pantoprazole Diet: Regular Code: full DVT prophylaxis: SCD's Disposition: anticipate discharge home 07/05. Discussed in detail w/ daughter at bedside 07/04 Admission and Anticipated Discharge Date Admission Date: July 03, 2024 Subjective Patient seen and examined this morning. Daughter at bedside. Patient reports prior to my examination she was experiencing an episode of vertigo. She states she had a thorough workup for this and was found to have an "infection" somewhere that physical therapy was able to manipulate out. Patient also endorses concern over the 30lb weight gain she has had happen over the last 4 months. She admits to experiencing b/l lower extremity edema within the past week. She hasn't taken her Lasix for a few days. She states that she was on this for a long time and is not sure why. She was experiencing urinary burning and frequency prior to coming to the hospital but this has since resolved. She reports she has also had diarrhea since decreasing her budesonide taper. Physical Exam 2 Constitutional: WD/WN, vitals as above Eyes: PERRL, conjunctivae normal, anicteric sclerae Respiratory: normal respiratory effort, lungs clear to auscultation Cardiovascular: RRR, no murmur, no edema Gastrointestinal (Abdomen): normal bowel sounds, soft, nontender, no hepatosplenomegaly Skin: no rashes, warm and dry Psychiatric: A+Ox3, euthymic affect Results & Data Results & Data Vital Signs (Past 12 Hours) Vital Signs Temp Pulse Pulse Resp BP BP Pulse Ox 07/04/24 11:35 36.4 C L 59 L 16 139/80 93 07/04/24 07:35 36.6 C 58 L 18 163/96 H 95 07/04/24 07:31 07/04/24 07:09 62 07/04/24 05:00 36.7 C 58 L 20 129/77 92 O2 Del Method 07/04/24 11:35 Room Air 07/04/24 07:35 Room Air 07/04/24 07:31 Room Air 07/04/24 07:09 07/04/24 05:00 Room Air Laboratory Results 07/04/24 05:39 07/04/24 05:39 Diagnostic Findings Ribs w/Chest X-Ray 07/03/24 16:00 XR ribs RT min 2V w CXR1V CLINICAL HISTORY: pain, fall 5 days ago. Right anterior rib pain. COMPARISON STUDY: Chest and right rib series 06/28/2024. FINDINGS: No pneumothorax. No pleural effusions. No focal lung consolidations to suggest a pneumonia. No evidence for pulmonary edema. The heart is normal in size. A moderate hiatus hernia is again noted. Healing right lateral eighth rib fractures again noted. There are acute right anterior lateral ninth and 10th rib fractures. IMPRESSION: 1. Acute right anterolateral ninth and 10th rib fractures. No pneumothorax. 2. Healing right lateral eighth rib fracture again noted. ACT 112: Negative or not required by law. Electronically signed by: Aiden Lindsay M.D. 07/03/2024 5:04 PM Ankle X-Ray 07/03/24 16:01 RIGHT ANKLE 3 VIEWS CLINICAL HISTORY: Recent fall. Right ankle pain. FINDINGS: 3 views of the right ankle are obtained. No prior studies are available for comparison at the time of dictation. The skeletal structures are osteopenic. No fracture is seen. The ankle mortise is intact. No joint effusion is identified. Soft tissue swelling is seen around the ankle, greatest overlying the lateral malleolus. IMPRESSION: Soft tissue swelling with no radiographic evidence of acute fracture. Electronically signed by: Remigio Preston M.D. 07/03/2024 5:12 PM Venous Doppler Study 07/03/24 18:07 Exam(s): US VENOUS RIGHT LOWER EXTREMITY EXAM: US Duplex Right Lower Extremity Veins CLINICAL HISTORY: Reason for exam: right leg swelling. TECHNIQUE: Real-time duplex ultrasound scan of the right lower extremity veins integrating B-mode two-dimensional vascular structure, Doppler spectral analysis, color flow Doppler imaging and compression. COMPARISON: No relevant prior studies available. FINDINGS: Deep veins: Unremarkable. No DVT in the visualized common femoral, femoral, proximal deep femoral or popliteal veins. The veins demonstrate normal color flow, are normally compressible, with normal phasic flow and/or augmentation response. Superficial veins: Unremarkable. No thrombus in the visualized great saphenous vein. Soft tissues: No acute findings. No popliteal cyst. IMPRESSION: Normal right lower extremity duplex venous ultrasound. Electronically signed by: Romeo Luong MD 07/03/24 20:[address] 07/03/24 18:08 Exam(s): CT C SPINE EXAM: CT Cervical Spine Without Intravenous Contrast CLINICAL HISTORY: Reason for exam: fall. TECHNIQUE: Axial computed tomography images of the cervical spine without intravenous contrast. CTDI is 25.13 mGy and DLP is 474.53 mGy-cm. Automated exposure control was utilized for the study. A dose lowering technique was utilized adhering to the principles of ALARA. COMPARISON: No relevant prior studies available. FINDINGS: Vertebrae: Unremarkable. No acute fracture. Discs/spinal canal/neural foramina: Mild to moderate degenerative disc disease changes seen in the cervical spine. No spinal canal stenosis. Soft tissues: Unremarkable. IMPRESSION: No acute fracture Electronically signed by: Romeo Luong MD 07/03/24 20:[address] 07/03/24 18:08 Exam(s): CT HEAD Without Contrast EXAM: CT Head Without Intravenous Contrast CLINICAL HISTORY: Reason for exam: fall. TECHNIQUE: Axial computed tomography images of the head/brain without intravenous contrast. CTDI is 36.79 mGy and DLP is 624.41 mGy-cm. Automated exposure control was utilized for the study. A dose lowering technique was utilized adhering to the principles of ALARA. COMPARISON: No relevant prior studies available. 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 No hemorrhage. Ventricles: Unremarkable. No ventriculomegaly. Bones/joints: Unremarkable. No acute fracture. Soft tissues: Unremarkable. Sinuses: Unremarkable as visualized. No acute sinusitis. Mastoid air cells: Unremarkable as visualized. No mastoid effusion. IMPRESSION: No acute findings in the head/brain. Electronically signed by: Romeo Luong MD 07/03/24 20:23 PM Hip/Pelvis X-Ray 07/03/24 21:30 SINGLE VIEW PELVIS; SINGLE VIEW RIGHT HIP CLINICAL HISTORY: Falls. Right hip pain. FINDINGS: An AP view of the pelvis and a frog-leg view of the right hip are correlated with pelvic CT dated 01/08/2017. The skeletal structures are osteopenic. There is no radiographic evidence of acute fracture involving the hips or bony pelvis. Mild arthritic change and joint space narrowing is seen in the hips. The sacroiliac joints are normal. There is mild sclerotic change seen in the pubic symphysis. Lumbosacral spondylosis is partially visualized. The overlying soft tissues are within normal limits. Numerous phleboliths are seen in the pelvis. IMPRESSION: No acute bony abnormality is identified. Electronically signed by: Remigio Preston M.D. 07/04/2024 8:08 AM Venous Doppler Study 07/04/24 11:05 LEFT LOWER EXTREMITY VENOUS DOPPLER HISTORY: b/l leg edema COMPARISON STUDY: None. FINDINGS: There is normal compressibility, flow, and augmentation within the left lower extremity deep venous system. IMPRESSION: No DVT within the left lower extremity. ACT 112: Negative or not required by law. Electronically signed by: Aiden Lindsay M.D. 07/04/2024 3:08 PM PG Care Time/CCT Total # of Minutes Spent Total Time Spent with Patient: Total time spent is greater than 50% in coordination of care (as documented) at patient's floor/unit and/or counseling patient: Coding Level of Care Code 20255 SUB INP/OBS CARE 3/50MIN Diagnoses Closed fracture of multiple ribs of right side, initial encounter S22.41XA Encounter type: initial encounter Fracture type: closed Acute cystitis without hematuria N30.00 Urinary tract infection type: acute cystitis Hematuria presence: without hematuria Bilateral lower extremity edema R60.0 Hypokalemia E87.6 (1) Multiple fractures of ribs of right side Encounter type: initial encounter Fracture type: closed Qualified Code(s): S 22.41XA - Multiple fractures of ribs, right side, initial encounter for closed fracture (2) UTI (urinary tract infection) Urinary tract infection type: acute cystitis Hematuria presence: without hematuria Qualified Code(s): N30.00 - Acute cystitis without hematuria
--- NOTE | 2024-07-04 15:09 | Ultrasound Report ---
LEFT LOWER EXTREMITY VENOUS DOPPLER HISTORY: b/l leg edema COMPARISON STUDY: None. FINDINGS: There is normal compressibility, flow, and augmentation within the left lower extremity meredith p venous system. IMPRESSION: No DVT within the left lower extremity. ACT 112: Negative or not required by law. Electronically signed by: Aiden Lindsay M.D. 07/04/2024 3:08 PM
--- NOTE | 2024-07-04 15:23 | XCELERA ---
[id number] \\[id number]___[id number]
[2024-07-04] MEDS: oxyCODONE HCL IR 5 MG TAB (IMMEDIATE RELEASE) PO PRN (17:34)
[2024-07-04] MEDS: DULoxetine HCL 30 MG CAP PO SCH (20:22)
[2024-07-04] MEDS: cefTRIAXone SODIUM 2,000 MG/50 ML BAG IV SCH (21:43)
[2024-07-04] MEDS: KETOROLAC TROMETHAMINE 15 MG/ML VIAL IV ONE (22:35)
[2024-07-04] MEDS: ZOLPIDEM TARTRATE 5 MG TAB PO SCH (23:23)
[2024-07-05 06:37] LABS: Basophils # (auto) 0.04 K/uL (0.00-0.20); Basophils % (auto) 0.8 %; Eosinophils # (auto) 0.18 K/uL (0.00-0.50); Eosinophils % (auto) 3.4 %; Hematocrit (blood only) 33.1 % (37.0-47.0); Hemoglobin 10.3 g/dl (12.0-16.0); Immature Granulocytes # (auto) 0.04 K/uL (0.01-0.20); Immature Granulocytes % (auto) 0.8 %; Lymphocytes # (auto) 1.86 K/uL (1.20-3.40); Lymphocytes % (auto) 35.5 %; Mean Corpuscular Hemoglobin 25.2 pg (25.0-34.0); Mean Corpuscular Hgb Conc 31.1 g/dL (32.0-36.0); Mean Corpuscular Volume 80.9 fL (80.0-100.0); Mean Platelet Volume 9.6 fL (9.4-12.4); Monocytes # (auto) 0.57 K/uL (0.11-0.59); Monocytes % (auto) 10.9 %; Neutrophils # (auto) 2.55 K/uL (1.40-6.50); Neutrophils % (auto) 48.6 %; Platelet Count 225 K/uL (130-400); RDW Coefficient of Variation 17.8 % (11.5-14.5); RDW Standard Deviation 52.4 fL (36.4-46.3); Red Blood Count 4.09 M/uL (4.20-5.40); White Blood Count 5.24 K/ul (4.8-10.8)
[2024-07-05 07:11] LABS: Albumin Level 3.8 gm/dl (3.4-5.0); BUN Creatinine Ratio 14.9 (10-20); Calcium 8.6 mg/dl (8.6-10.3); Creatinine Clr Calc Pharmacy 51.1 ml/min; Est GFR (African American) 68.3 ml/min; Est GFR (Non-African American) 58.9 ml/min; Magnesium 2.2 mg/dl (1.7-2.4); Phosphorus 3.5 mg/dl (2.5-4.9); Potassium 3.9 mmol/L (3.5-5.1)
[2024-07-05] MEDS: CETIRIZINE HCL 10 MG TABLET PO PRN (08:44)
--- NOTE | 2024-07-05 10:54 | Discharge Summary ---
Discharge Summary Date of Service July 05, 2024 Principal Dx & Hospital Course #1 = Principal Diagnosis (1) Multiple fractures of ribs of right side: Age-related osteoporosis with current pathological fracture, R ribs Patient presented to the ED on 07/03 for right sided rib cage pain after following off the toilet 1 week ago. CXR from 07/03 revealed an acute right anterolateral 9th and 10th rib fracture. no pneumothorax and a healing lateral 8th rib fracture. Patient is unfortunately allergic to Lidoderm patch so Lidoderm 5% gel was trialed. She was given Tylenol q8h for pain and oxycodone q6h prn. She was instructed to take tylenol upon discharge and use oxycodone as needed for breakthrough pain. (2) UTI (urinary tract infection): Stop Macrodantin, as it does not appear to be working, and likely is causing some contribution to imbalance. She was placed on Rocephin inpatient and transitioned to Keflex outpatient to complete her abx course. Reviewed labs 07/05 including CBC and BMP which were stable. (3) Bilateral lower extremity edema: Patient endorses about 1 week of b/l LE edema. Patient has been on Lasix for about 20 years with unknown cause. About 4 days ago she stopped taking it due to urinary frequency issues from her UTI. She then subsequently developed b/l LE edema. B/L venous doppler was negative. Echo from 07/04 revealed EF of 60-65% and mild todd-valvular regurgitation. Lasix was resumed at her previous dose on 07/05. (4) Hypokalemia: Potassium 3.1 on admission, magnesium 2.1. Likely contributed to abnormal sensations in hands and feet. She was given potassium chloride 10meq IV x 2 and had normalization of potassium. Lasix resumed and spironolactone was continued. Reviewed BMP 07/05 which revealed normal potassium of 3.9 and magnesium of 2.2 Plan Chronic conditions: Anxiety- Continue duloxetine Vertigo/allergic symptoms- Multifactorial including all of the above, Continue albuterol sulfate HFA as needed, Tessalon Perles as needed Hydroxyzine as needed Microscopic colitis- Continue budesonide and omeprazole/pantoprazole Admission HPI Per Admitting Provider The patient is a 78-year-old female with a past medical history including anemia, vitamin D deficiency, prediabetes, hypertension, hyperlipidemia, anxiety disorder, GERD, hypothyroidism and vertigo. She notes that about 1 year ago, she was undergoing workup for vertigo, which included workup for anemia, where she had a colonoscopy which showed microscopic colitis around mid July last year, then a hiatal hernia around mid August last year. She has had intermittent issues with vertigo since that time, about 2 months ago had a fall where she fractured her right eighth rib. More recently, about 1 week ago, she was getting up off the commode, had numbness in her legs, which led to her falling, and tonight is seen to have a new ninth and 10th rib fractures on x- ray. She is concerned about a 20 pound or so weight gain over the past several months, and more recently had temporarily stopped her furosemide due to urinary frequency issues. She reports that she presently is taking Macrodantin for urinary tract infection, which she reports has not been having much effect this time. She also reports tingling in her bilateral upper and lower extremities. Discharge Exam Constitutional WD/WN, vitals as above Eyes PERRL, conjunctivae normal, anicteric sclerae Respiratory normal respiratory effort, lungs clear to auscultation Cardiovascular RRR, no murmur, no edema Gastrointestinal (Abdomen) normal bowel sounds, soft, nontender, no hepatosplenomegaly Skin no rashes, warm and dry Psychiatric A+Ox3, euthymic affect Discharge Plan Discharge Items Patient Disposition: Home - Self-Care Reason For Visit: MULTIPLE RIB FRACTURES, UTI, VERTIGO Discharge Diagnosis: Rib fracture, UTI Activity: Resume your previous activity Non-emergency contact: Primary Care Provider Call non-emergency contact if: you have any medication questions and your symptoms worsen Follow-up/Referrals: Preston Winters MD [Primary Care Provider] - 07/20/24 10:30 am Diet: Regular Addtl Attending Provider Instructions: Mrs. Andrea, You were recently hospitalized following a fall. You sustained two right rib fractures that have been treated supportively with pain medication. You also have a UTI and have been on antibiotics for this as well. You underwent doppler US of your legs that were negative. You also underwent an Echocardiogram that revealed a normal ejection fraction. Please see recommendations below regarding your discharge. 1. Please take Keflex 500mg twice daily for the next 6 days. Your next dose will be this evening, 07/05 Please take with food to avoid an upset stomach. 2. Please resume your previous outpatient medications as prescribed by your PCP. 3. Please use Tylenol 1000 mg every 8 hours to help with your rib pain. 4. Please use oxycodone 5mg every 6 hours as needed for breakthrough pain. Please follow up with your PCP within 1-2 weeks following your discharge. If you develop any worsening symptoms including chest pain, shortness of breath, fevers, or chills please report to the ER for further evaluation. Sincerely, Aruna Gavin PA-C Pending Studies at Discharge: No Stand-Alone Forms: My [facility] [employer], Smoking Cessation Medications and DC Order Prescriptions: New cephalexin 500 mg capsule 500 mg PO BID Qty: 11 0RF oxycodone 5 mg tablet 5 mg PO Q6H PRN (Reason: pain (scale score 7-10)) Qty: 14 0RF Continued omeprazole 20 mg capsule,delayed release(DR/EC) 20 mg PO DAILY Qty: 90 3RF furosemide 40 mg tablet 40 mg PO QAM Qty: 90 1RF Rx Instructions: doesnt need till due promethazine 25 mg tablet 25 mg PO QID PRN (Reason: nausea and vomiting) Qty: 90 0RF albuterol sulfate [ProAir HFA] 90 mcg/actuation HFA aerosol inhaler 1 puff INH Q6H PRN (Reason: shortness of breath or wheezing) Qty: 18 3RF ondansetron 4 mg tablet,disintegrating 4 mg PO Q4H PRN (Reason: nausea and vomiting) Qty: 60 0RF duloxetine 30 mg capsule,delayed release(DR/EC) See Rx Instructions PO .COMPLEX Qty: 270 3RF Rx Instructions: take 2 tabs in AM, take 1 tab in PM PO daily; hydroxyzine HCl 25 mg tablet 25 mg PO BID PRN (Reason: itching) Qty: 90 1RF benzonatate 100 mg capsule 100 mg PO TID PRN (Reason: cough) Qty: 30 1RF pravastatin 40 mg tablet 40 mg PO DAILY Qty: 90 3RF spironolactone 50 mg tablet 50 mg PO DAILY Qty: 90 3RF zolpidem 10 mg tablet 10 mg PO QPM Qty: 30 0RF Rx Instructions: Supervising physician Preston Winters MD [facility] [id number] lorazepam 2 mg tablet 2 mg PO TID PRN (Reason: anxiety) Qty: 90 0RF Rx Instructions: monthly (when due) Restasis 0.05 % dropperette 1 drops OP Q12H Qty: 30 2RF ipratropium-albuterol 0.5 mg-3 mg(2.5 mg base)/3 mL solution for nebulization 3 ml INH Q6H PRN (Reason: Cough) nystatin-triamcinolone 100,000-0.1 unit/gram-% ointment 1 applic topical TID PRN (Reason: Skin Irritation) budesonide 3 mg capsule,delayed,extend.release 9 mg PO QAM cetirizine [Zyrtec] 10 mg Tablet 20 mg PO DAILY PRN (Reason: Allergy Symptoms) No Action (DME) nebulizers Misc See Rx Instructions .ROUTE .MEDSUPPLY Qty: 1 0RF Rx Instructions: Nebulizer with tubing x 1 week Discharge Orders: Discharge Order (Routine); Ordered 07/05/24 Ordered By: Aruna Gavin Admission Data Admit Date/Time: 07/04/24 16:34 Attending Provider: Beatrice Starr Admit Provider: Dmitry Britton Primary Care Provider: Preston Winters Other Providers: Dmitry Britton Other Interventions: Discharge Summary Assessment (RN) Last Done: 07/05/24 16:29 Hospital Stay Data Consultations 07/03/24 22:57 ED Decision to Admit Stat Diagnostic Imagining Performed 07/03/24 18:07 US leg [US venous doppler LE RT] Stat 07/03/24 18:08 CT head/brain wo con Stat CT neck [CT cervical spine wo con] Stat 07/04/24 11:05 US venous doppler LE LT Routine Pending Results Patient Have Any Pending Studies at Discharge: No Discharge Instructions Given to Patient (Per Discharging Provider) Mrs. Andrea, You were recently hospitalized following a fall. You sustained two right rib fractures that have been treated supportively with pain medication. You also have a UTI and have been on antibiotics for this as well. You underwent doppler US of your legs that were negative. You also underwent an Echocardiogram that revealed a normal ejection fraction. Please see recommendations below regarding your discharge. 1. Please take Keflex 500mg twice daily for the next 6 days. Your next dose will be this evening, 07/05 Please take with food to avoid an upset stomach. 2. Please resume your previous outpatient medications as prescribed by your PCP. 3. Please use Tylenol 1000 mg every 8 hours to help with your rib pain. 4. Please use oxycodone 5mg every 6 hours as needed for breakthrough pain. Please follow up with your PCP within 1-2 weeks following your discharge. If you develop any worsening symptoms including chest pain, shortness of breath, fevers, or chills please report to the ER for further evaluation. Sincerely, Aruna Gavin PA-C Total Time Total Time Spent Total Time Spent (In Minutes): 40 Total Time Includes: Examination of the Patient, Discharge Planning and Medication Reconciliation Coding Level of Care Code 40677 INP/OBS DISCH >30 MIN Diagnoses Closed fracture of multiple ribs of right side, initial encounter S22.41XA Encounter type: initial encounter Fracture type: closed Acute cystitis without hematuria N30.00 Hematuria presence: without hematuria Urinary tract infection type: acute cystitis Bilateral lower extremity edema R60.0 Hypokalemia E87.6
[2024-07-05] MEDS: cephALEXin 500 MG CAP PO STA (12:19)
[2024-07-05] MEDS: FUROSEMIDE 40 MG TAB PO ONE (12:20)
[2024-07-05 12:44] VITALS: BP 154/95; RESP 20; TEMP 98.1; O2SAT 93
[2024-07-05 16:31] VITALS: PULSE 59
[2024-07-07 15:08] LABS: Ehrlichia chaff DNA Bld Negative (Negative)
[2024-07-21 22:08] LABS: Babesia microti DNA Not Detected (Not Detected); Q Fever IgG, Phase I NEGATIVE; Q Fever Phase I IgM Antibody NEGATIVE; Q Fever Phase II IgG Antibody POSITIVE; Q Fever Phase II IgM Antibody NEGATIVE; R. typhi IgG Ab NOT DETECTED; R. typhi IgM Ab NOT DETECTED; RMSF IgG Ab NOT DETECTED; RMSF IgM Ab NOT DETECTED
[2024-07-24 10:07] LABS: Q Fever IgG Phase II Ttr Rflx 1:16 titer
== END 2024-07-05 17:55 | disposition home or self-care (01) | DRG 543 ==
LOC: ED 15:40 → 2W 15:40 → SUATTDRO 23:52 → 2W 07-04 00:49 → SUATTDRO 07-04 16:34

== ENCOUNTER 2024-10-26 18:31 | Inpatient (IN) ==
--- NOTE | 2024-10-26 19:01 | Emergency Department Note ---
Impression & Plan TIA (transient ischemic attack), Expressive aphasia, Slurred speech ED Provider Note NAME: REI SOLIS AGE: 78 SEX: F : 1945 ARRIVES VIA: Walk-In INFORMANT: Patient ED PROVIDER(S): Tom Yang DO CHIEF COMPLAINT: Slurred speech, trouble talking and possible left facial droop HPI: Patient is a 78-year-old female who presents to the ER for expressive aphasia, with some slurred speech that started last night and lasted for about an hour and a half. Associated with this was a left facial droop. Patient currently admits to a headache. She also notes that she was dizzy at that time. No chest pain or shortness of breath. No nausea, vomiting, or diarrhea. No dysuria, urgency, or frequency. No weakness or numbness in the arms or legs. ADDITIONAL HISTORY OBTAINED: Per HPI Chronic Medical/Social Conditions Affecting Care: Per HPI PAST MEDICAL HISTORY:See Below PAST SURGICAL HISTORY:See Below FAMILY HISTORY:See Below SOCIAL HISTORY:See Below HOME MEDICATIONS:See Below ALLERGIES:See Below VITALS:See Below PHYSICAL EXAMINATION: GENERAL: Sitting up in bed, alert, well appearing, well nourished, no distress, non-toxic EYE EXAM: normal conjunctiva. PERRL and EOM's grossly intact. OROPHARYNX: no exudate, no erythema, lips, buccal mucosa, and tongue normal and mucous membranes are moist NECK: supple, no nuchal rigidity, no adenopathy, non-tender LUNGS: Clear to auscultation. Normal chest wall mechanics HEART: no murmurs, S1 normal and S2 normal ABDOMEN: abdomen soft, non-tender, normo-active bowel sounds, no masses, no rebound or guarding. UPPER EXTREMITIES: upper extremities are grossly normal. LOWER EXTREMITIES: No pitting edema. NEURO EXAM: Normal sensorium, cranial nerves II-XII intact, normal speech, no weakness of arms, no weakness of legs. No drift. Finger to nose intact. Gross sensation intact. MEDICAL DECISION MAKING: Patient is a 78-year-old female with a past medical history of a UTI, falls, anemia, anxiety who presents to the ER for the above-stated complaint. IV was established and blood work was obtained. Labs show no significant leukocytosis or anemia. INR unremarkable. BMP with mild hypokalemia 3.2. LFTs and bilirubin was unremarkable. Troponin mildly up at 16. CT angios of the head and neck showed a questionable CVT. I discussed with Dr. Haynes and CT venogram was ordered. On review of this it was just arachnoid granulations. Patient was updated bedside. Discussed case with Dr. Onofre as Case had been discussed with [facility] and they recommended admission and MRI and complete workup. Patient was given IV fluids while in the ER. Consults/Care Managements Discussions: Per [facility] Triage Nursing notes reviewed. Limited review of prior medical records performed Vital Signs: reviewed and remarkable for no significant abnormalities Differential diagnosis: Differential Diagnosis includes but is not limited to ischemic Stroke, hemorrhagic stroke, bells palsy, mass, neoplasm, migraine headache, seizure, subarachnoid hemorrhage, TIA, and transient global amnesia. ER treatment provided: See below Diagnostics interpreted by me include EKG and cardiac monitoring as listed below: -Cardiac Monitoring: An order was placed for continuous cardiac monitoring. The monitor shows a rate of 90 with sinus rhythm. -ECG: Sinus rhythm rate 81 Normal axis No PVCs QTc 462 -Laboratory studies:Interpreted by me as stated above in MDM and shown below. Imaging studies: Xrays: As interpreted by me:none CTs show: CT of the head per my preliminary interpretation showed no obvious large bleed CT angios of the head and neck as described above CT venogram as described above Procedures:none Critical Care: None Past Med/Surg History Problem List (Updated 10/26/24 @ 21:48 by Tom Yang DO) Slurred speech (Acute) Expressive aphasia (Acute) TIA (transient ischemic attack) (Acute) Vertigo Dizziness Sensorineural hearing loss (SNHL) of both ears Multiple fractures of ribs, right side, initial encounter for closed fracture (Acute ~07/03/24) Acute right anterolateral ninth and 10th rib fractures Bilateral lower extremity edema UTI (urinary tract infection) Microscopic colitis Multiple fractures of ribs of right side Acute right anterolateral ninth and 10th rib fractures from a fall Falls Fe deficiency anemia Status post laser cataract surgery of both eyes Anemia, mild Anemia Insect bite Rash Cellulitis of toe of left foot Vitamin D deficiency (Acute) Prediabetes (Acute) Osteoporosis (Acute) Hypokalemia (Acute) Hypertension (Acute) Hyperlipidemia (Acute) Anxiety disorder Cough Seasonal allergies Acid reflux Otalgia of right ear Acquired deviated nasal septum Impacted cerumen, right ear Hypothyroidism Current use of proton pump inhibitor Medical History Right wrist fracture Basal cell carcinoma of nose 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 Acute bronchitis Neurodermatitis Snow's neuroma of right foot History of malignant neoplasm of breast (~1996) History of hypokalemia History of homocysteinuria Acquired bilateral renal cysts Edema Fatigue Insomnia Osteoarthritis of knee Weakness Hypokalemia Surgical History H/O tooth extraction Hx of colonoscopy (~2013) History of total right knee replacement (2014) S/P lumpectomy, left breast S/P total abdominal hysterectomy and bilateral salpingo-oophorectomy H/O cosmetic surgery S/P skin biopsy S/P skin biopsy S/P rhinoplasty H/O oral surgery S/P nasal surgery S/P dilation and curettage Family History Father Aortic aneurysm Skin cancer Heart disease Sister Arthritis Osteoporosis Mother Breast cancer Colorectal cancer Macular degeneration Grandmother (Maternal) Breast cancer Grandmother (Paternal) Heart disease Brother Prostate cancer Denies family history of Ovarian cancer Myocardial infarction Social History Smoking Status: Never smoker Second Hand Exposure: No; Do You Dip or Chew Tobacco: No; Hx Alcohol Use: Yes Alcohol type: beer Hx Substance Use: Yes Prescribed Medications: Marijuana Last Used Substance: Days (ago) Last Used Substance Other:: yesterday Preferred Language: Chinese Communication Ability: Effective Visual Impairment: No Limitations Hearing Ability: Normal Physician'S Assistant Required: No Beliefs That Will Affect Care: None marital status: Current Living Situation: Family Current Living Situation Comment: lives at home with and daughter current occupational status: retired Feels Safe at Home: Yes Diet: Weight Watchers during the past year weight has: increased > 10 lbs Dental Care, Regularly: Yes Physical Activity Frequency: Does not Exercise Seatbelt Use: always Sunscreen Use: No Assistive Devices: Glasses Allergies Allergies Allergy/AdvReac Type Severity Reaction Status Date / Time Sulfa (Sulfonamide Allergy Unknown CAN'T Verified 09/28/24 14:16 Antibiotics) REMEMBER sulfamethoxazole Allergy Unknown CAN'T Verified 09/28/24 14:16 [From Bactrim] REMEMBER trimethoprim [From Bactrim] Allergy Unknown CAN'T Verified 09/28/24 14:16 REMEMBER latex AdvReac Intermediate contact Verified 09/28/24 14:16 skin rash adhesive AdvReac Mild BAND-AIDS Verified 09/28/24 14:16 - RED SKIN Home Meds Home Medications Medication Instructions Recorded Confirmed nystatin-triamcinolone 100,000 1 applic topical TID PRN Skin 07/16/23 10/26/24 unit/gram-0.1 % topical ointment Irritation cetirizine 10 mg tablet (Zyrtec) 20 mg PO DAILY PRN Allergy Symptoms 04/07/24 10/26/24 budesonide 3 mg 9 mg PO QAM 07/03/24 10/26/24 capsule,delayed,extended release albuterol sulfate 90 mcg/actuation 2 puff inhalation Q6 PRN Shortness 10/26/24 10/26/24 aerosol inhaler Of Breath Or Wheezing Previous Rx's Medication Instructions Recorded nebulizers #1 ea 12/25/19 promethazine 25 mg tablet 25 mg PO QID PRN nausea and 03/01/24 vomiting #90 tabs pravastatin 40 mg tablet 40 mg PO DAILY #90 tabs 05/31/24 oxycodone 5 mg tablet 5 mg PO Q6H PRN pain (scale score 08/11/24 7-10) #30 tabs spironolactone 50 mg tablet 50 mg PO DAILY #90 tabs 08/23/24 hydroxyzine HCl 25 mg tablet 25 mg PO BID PRN itching #90 tabs 08/24/24 ondansetron 4 mg disintegrating 4 mg PO Q4H PRN nausea and 08/24/24 tablet vomiting 0 days #60 tabs potassium chloride 20 mEq 20 meq PO .COMPLEX #30 tabs 08/24/24 tablet,extended release duloxetine 30 mg capsule,delayed See Rx Instructions PO .COMPLEX 08/25/24 release #270 caps furosemide 40 mg tablet 40 mg PO QAM #90 tabs 08/25/24 omeprazole 20 mg capsule,delayed 20 mg PO DAILY #90 caps 08/25/24 release lorazepam 2 mg tablet 2 mg PO TID PRN anxiety #90 tabs 10/17/24 zolpidem 10 mg tablet 10 mg PO QPM #30 tabs 10/17/24 Results & Data (ED) Vital Signs Vital Signs - 24 hr 10/26/24 18:40 10/26/24 19:03 10/26/24 19:05 Temperature 36.7 C Temperature Source Oral Pulse Rate 94 H 81 Pulse Rate [Finger] Pulse Rate from SpO2 Sensor 81 Respiratory Rate 20 26 H Respiratory Effort / Characteristics Non-Labored Respiratory Depth Normal Blood Pressure 135/85 149/99 H Blood Pressure Mean 101 118 Pulse Oximetry 95 94 Oxygen Delivery Method Room Air Sepsis Recent Fever Within 48 Hours No Sepsis New/Unexplained Change in Mental Status No Sepsis Action Taken by Nursing No Action Required 10/26/24 19:07 10/26/24 19:21 10/26/24 19:30 Temperature Temperature Source Pulse Rate 79 76 Pulse Rate [Finger] Pulse Rate from SpO2 Sensor 76 Respiratory Rate 21 Respiratory Effort / Characteristics Respiratory Depth Blood Pressure 146/90 H Blood Pressure Mean 102 Pulse Oximetry 94 Oxygen Delivery Method Sepsis Recent Fever Within 48 Hours Sepsis New/Unexplained Change in Mental Status Sepsis Action Taken by Nursing 10/26/24 19:36 10/26/24 20:00 10/26/24 20:27 Temperature Temperature Source Pulse Rate 78 75 Pulse Rate [Finger] Pulse Rate from SpO2 Sensor 77 73 Respiratory Rate 25 H 24 Respiratory Effort / Characteristics Respiratory Depth Blood Pressure 144/90 H 144/90 H Blood Pressure Mean 104 108 Pulse Oximetry 95 95 Oxygen Delivery Method Sepsis Recent Fever Within 48 Hours Sepsis New/Unexplained Change in Mental Status Sepsis Action Taken by Nursing 10/26/24 20:30 10/26/24 20:34 Temperature Temperature Source Pulse Rate 74 Pulse Rate [Finger] 82 Pulse Rate from SpO2 Sensor 75 Respiratory Rate 14 18 Respiratory Effort / Characteristics Respiratory Depth Blood Pressure 153/96 H Blood Pressure Mean 115 Pulse Oximetry 95 Oxygen Delivery Method Sepsis Recent Fever Within 48 Hours Sepsis New/Unexplained Change in Mental Status Sepsis Action Taken by Nursing Laboratory Data 10/26/24 19:04 10/26/24 19:04 Lab Results 10/26/24 Range/Units 19:04 WBC 10.18 (4.8-10.8) K/ul RBC 5.79 H (4.20-5.40) M/uL Hgb 14.2 (12.0-16.0) g/dl Hct 45.2 (37.0-47.0) % MCV 78.1 L (80.0-100.0) fL MCH 24.5 L (25.0-34.0) pg MCHC 31.4 L (32.0-36.0) g/dL RDW Std Deviation 46.3 (36.4-46.3) fL RDW Coeff of Marie 17.2 H (11.5-14.5) % Plt Count 359 (130-400) K/uL MPV 9.7 (9.4-12.4) fL Immature Gran % (Auto) 0.7 % Neut % (Auto) 66.0 % Lymph % (Auto) 22.5 % [place] % (Auto) 8.8 % Eos % (Auto) 1.1 % Baso % (Auto) 0.9 % Neut # (Auto) 6.72 H (1.40-6.50) K/uL Lymph # (Auto) 2.29 (1.20-3.40) K/uL [place] # (Auto) 0.90 H (0.11-0.59) K/uL Eos # (Auto) 0.11 (0.00-0.50) K/uL Baso # (Auto) 0.09 (0.00-0.20) K/uL Immature Gran # (Auto) 0.07 (0.01-0.20) K/uL PT 10.4 (9.0-12.0) Seconds INR 1.0 (0.9-1.1) APTT 25 (21-31) Seconds PTT Ratio 0.9 Sodium 139 (136-145) mmol/L Potassium 3.4 L (3.5-5.1) mmol/L Chloride 101 (98-107) mmol/L Carbon Dioxide 26 (21-32) mmol/L Anion Gap 12 H (3-11) BUN 21 (6-23) mg/dl Creatinine 1.25 H (0.6-1.2) mg/dl Est Cr Clr Drug Dosing 37.0 ml/min eGFR 44.67 BUN/Creatinine Ratio 16.8 (10-20) Glucose 124 H (70-99(Fasting)) mg/dl Calcium 10.1 (8.6-10.3) mg/dl Magnesium 2.2 (1.7-2.4) mg/dl Total Bilirubin 0.6 (0.2-1.0) mg/dl AST 29 (13-39) U/L ALT 27 (7-52) U/L Alkaline Phosphatase 64 (34-104) U/L Troponin I High Sens 16.0 H (0-14) pg/ml Total Protein 8.1 (6.0-8.3) gm/dl Albumin 5.2 H (3.4-5.0) gm/dl Globulin 2.9 (2.5-4.0) gm/dl Albumin/Globulin Ratio 1.8 (0.9-2) Administered Medications Discontinued Medications Sodium Chloride (Nss) 1,000 mls @ 999 mls/hr IV .Q1H1M ONE Stop: 10/26/24 21:43 Last Admin: 10/26/24 21:38 Dose: 999 mls/hr Documented By: PRIYA Ioversol (Optiray 320 125ml) 119 ml IV ONCE ONE Stop: 10/26/24 19:42 Last Admin: 10/26/24 19:41 Dose: 119 ml Documented By: MARTA Ioversol (Optiray 320 125ml) 119 ml IV ONCE ONE Stop: 10/26/24 21:11 Last Admin: 10/26/24 21:10 Dose: 119 ml Documented By: JONH Imaging Data Radiologist's Impression: Head CT 10/26/24 18:48 CR Exam(s): CT HEAD Without Contrast EXAM: CT Head Without Intravenous Contrast CLINICAL HISTORY: Reason for exam: neuro deficit, acute stroke suspected. TECHNIQUE: Axial computed tomography images of the head/brain without intravenous contrast. CTDI is 36.31 mGy and DLP is 546.36 mGy-cm. Automated exposure control was utilized for the study. A dose lowering technique was utilized adhering to the principles of ALARA. COMPARISON: No relevant prior studies available. FINDINGS: Brain: atrophy and chronic microvascular ischemic changes. . No hemorrhage, extra-axial fluid collection, mass effect, or edema. Ventricles: Unremarkable. Bones/joints: Unremarkable. No fracture. Soft tissues: Unremarkable. Sinuses: No acute sinusitis. Mastoid air cells: Unremarkable as visualized. IMPRESSION: 1. No acute intracranial abnormality. Communications: Call Doctor Stroke Electronically signed by: Jamel Haynes MD 10/26/24 20:44 PM Head CTA 10/26/24 18:48 CR Exam(s): CTA HEAD With Contrast IV Amt: 119 ml optiray 320 EXAM: CT Angiography Head With Intravenous Contrast CLINICAL HISTORY: Reason for exam: neuro deficit, acute stroke suspected. TECHNIQUE: Axial computed tomographic angiography images of the head with intravenous contrast. CTDI is 12.87 mGy and DLP is 434.82 mGy-cm. Automated exposure control was utilized for the study. A dose lowering technique was utilized adhering to the principles of ALARA. MIP reconstructed images were created and reviewed. CONTRAST: Patient received 119 ml optiray 320 of IV contrast COMPARISON: No relevant prior studies available. FINDINGS: Right internal carotid artery: No acute findings. Intracranial segment is patent with no significant stenosis. No aneurysm. Right anterior cerebral artery: Unremarkable. No occlusion or significant stenosis. No aneurysm. Right middle cerebral artery: Unremarkable. No occlusion or significant stenosis. No aneurysm. Right posterior cerebral artery: Unremarkable. No occlusion or significant stenosis. No aneurysm. Right vertebral artery: Unremarkable as visualized. Left internal carotid artery: No acute findings. Intracranial segment is patent with no significant stenosis. No aneurysm. Left anterior cerebral artery: Unremarkable. No occlusion or significant stenosis. No aneurysm. Left middle cerebral artery: Unremarkable. No occlusion or significant stenosis. No aneurysm. Left posterior cerebral artery: Unremarkable. No occlusion or significant stenosis. No aneurysm. Left vertebral artery: Unremarkable as visualized. Basilar artery: Unremarkable. No occlusion or significant stenosis. No aneurysm. IMPRESSION: Normal head CTA. Communications: Call Doctor Stroke Electronically signed by: Jamel Haynes MD 10/26/24 20:46 PM Neck CTA 10/26/24 18:48 CR Exam(s): CTA NECK With Contrast IV Amt: 119 ml optiray 320 EXAM: CT Angiography Neck With Intravenous Contrast CLINICAL HISTORY: Reason for exam: neuro deficit, acute stroke suspected. TECHNIQUE: Routine carotid CT angiography protocol was performed with intravenous contrast. NASCET criteria using the distal ICAs for comparison were used for evaluation of stenoses. CTDI is 12.87 mGy and DLP is 434.82 mGy-cm. Automated exposure control was utilized for the study. A dose lowering technique was utilized adhering to the principles of ALARA. MIP reconstructed images were created and reviewed. CONTRAST: Patient received 119 ml optiray 320 of IV contrast COMPARISON: None. FINDINGS: VASCULATURE: Right common carotid artery: Unremarkable. No occlusion or significant stenosis. No dissection. Right internal carotid artery: Unremarkable. Extracranial segment is patent with no occlusion or significant stenosis. No dissection. Right vertebral artery: Unremarkable. No occlusion or significant stenosis. No dissection. Left common carotid artery: Unremarkable. No occlusion or significant stenosis. No dissection. Left internal carotid artery: Unremarkable. Extracranial segment is patent with no occlusion or significant stenosis. No dissection. Left vertebral artery: Unremarkable. No occlusion or significant stenosis. No dissection. NECK: Bones/joints: Unremarkable. No acute fracture. Soft tissues: Unremarkable. Lung apices: Clear. CAROTID STENOSIS REFERENCE USING NASCET CRITERIA: % ICA stenosis = (1 - narrowest ICA diameter/diameter of distal cervical ICA) x 100. Mild - <50% stenosis. Moderate - 50-69% stenosis. Severe - 70-94% stenosis. Near occlusion - 95-99% stenosis. Occluded - 100% stenosis. IMPRESSION: Negative CTA neck. Communications: Call Doctor Stroke Electronically signed by: Jamel Haynes MD 10/26/24 20:[address] 10/26/24 20:56 Exam(s): CTA HEAD EXAM: CT Venography Head With Intravenous Contrast CLINICAL HISTORY: Reason for exam: ? ctv. TECHNIQUE: Axial computed tomographic venography images of the head with intravenous contrast. CTDI is 43 mGy and DLP is 866.17 mGy-cm. Automated exposure control was utilized for the study. A dose lowering technique was utilized adhering to the principles of ALARA. MIP reconstructed images were created and reviewed. COMPARISON: Head CT 03/03/2021 and MRI 07/16/2023 FINDINGS: Superior sagittal sinus: Unremarkable. Patent. Straight sinus: Unremarkable. Patent. Transverse sinuses: Lobular filling defects within the bilateral transverse dural venous sinuses are consistent with arachnoid granulations and were present on the prior contrast-enhanced head CT 03/03/2021. Sigmoid sinuses: Unremarkable. Patent. Internal jugular veins: Unremarkable as visualized. Internal cerebral and cortical veins: Unremarkable as visualized. IMPRESSION: Lobular filling defects within the bilateral transverse dural venous sinuses are consistent with arachnoid granulations and were present on the prior contrast-enhanced head CT 03/03/2021. Electronically signed by: Jamel Haynes MD 10/26/24 21:42 PM Discharge Plan Visit Data Chief Complaint: TIA Symptoms Stated Complaint: POSSIBLE STROKE LAST NIGHT ED Provider: Tom Yang Discharge Problem: TIA (transient ischemic attack), Expressive aphasia, Slurred speech Forms Stand Alone Forms: My [facility] Prescriptions Prescriptions: No Action promethazine 25 mg tablet 25 mg PO QID PRN (Reason: nausea and vomiting) Qty: 90 0RF pravastatin 40 mg tablet 40 mg PO DAILY Qty: 90 3RF oxycodone 5 mg tablet 5 mg PO Q6H PRN (Reason: pain (scale score 7-10)) Qty: 30 0RF spironolactone 50 mg tablet 50 mg PO DAILY Qty: 90 3RF hydroxyzine HCl 25 mg tablet 25 mg PO BID PRN (Reason: itching) Qty: 90 1RF lorazepam 2 mg tablet 2 mg PO TID PRN (Reason: anxiety) Qty: 90 0RF Rx Instructions: monthly (when due) zolpidem 10 mg tablet 10 mg PO QPM Qty: 30 0RF Rx Instructions: Supervising physician Preston Winters MD LEWIS [id number] ([facility] [place]) nebulizers [facility] [place] See Rx Instructions .ROUTE .MEDSUPPLY Qty: 1 0RF Rx Instructions: Nebulizer with tubing x 1 week potassium chloride 20 mEq tablet extended release 20 meq PO .COMPLEX Qty: 30 2RF Rx Instructions: 20 mEq orally three days a week; ondansetron 4 mg tablet,disintegrating 4 mg PO Q4H PRN (Reason: nausea and vomiting) Qty: 60 0RF duloxetine 30 mg capsule,delayed release(DR/EC) See Rx Instructions PO .COMPLEX Qty: 270 3RF Rx Instructions: take 2 tabs in AM, take 1 tab in PM PO daily; furosemide 40 mg tablet 40 mg PO QAM Qty: 90 1RF Rx Instructions: doesnt need till due omeprazole 20 mg capsule,delayed release(DR/EC) 20 mg PO DAILY Qty: 90 3RF nystatin-triamcinolone 100,000-0.1 unit/gram-% ointment 1 applic topical TID PRN (Reason: Skin Irritation) budesonide 3 mg capsule,delayed,extend.release 9 mg PO QAM cetirizine [Zyrtec] 10 mg Tablet 20 mg PO DAILY PRN (Reason: Allergy Symptoms) albuterol sulfate 90 mcg/actuation HFA aerosol inhaler 2 puff INHALATION Q6 PRN (Reason: Shortness Of Breath Or Wheezing) Referrals Referrals: Preston Winters MD [Primary Care Provider] -
[2024-10-26 19:23] LABS: Basophils # (auto) 0.09 K/uL (0.00-0.20); Basophils % (auto) 0.9 %; Eosinophils # (auto) 0.11 K/uL (0.00-0.50); Eosinophils % (auto) 1.1 %; Hematocrit (blood only) 45.2 % (37.0-47.0); Hemoglobin 14.2 g/dl (12.0-16.0); Immature Granulocytes # (auto) 0.07 K/uL (0.01-0.20); Immature Granulocytes % (auto) 0.7 %; Lymphocytes # (auto) 2.29 K/uL (1.20-3.40); Lymphocytes % (auto) 22.5 %; Mean Corpuscular Hemoglobin 24.5 pg (25.0-34.0); Mean Corpuscular Hgb Conc 31.4 g/dL (32.0-36.0); Mean Corpuscular Volume 78.1 fL (80.0-100.0); Mean Platelet Volume 9.7 fL (9.4-12.4); Monocytes % (auto) 8.8 %; Neutrophils # (auto) 6.72 K/uL (1.40-6.50); Platelet Count 359 K/uL (130-400); RDW Coefficient of Variation 17.2 % (11.5-14.5); RDW Standard Deviation 46.3 fL (36.4-46.3); Red Blood Count 5.79 M/uL (4.20-5.40); White Blood Count 10.18 K/ul (4.8-10.8)
[2024-10-26] MEDS: OPTIRAY 320 125ml IV ONE ×2 (19:41→21:10)
[2024-10-26 19:49] LABS: Albumin Globulin Ratio 1.8 (0.9-2); Albumin Level 5.2 gm/dl (3.4-5.0); BUN Creatinine Ratio 16.8 (10-20); Bilirubin,Total 0.6 mg/dl (0.2-1.0); Calcium 10.1 mg/dl (8.6-10.3); Globulin 2.9 gm/dl (2.5-4.0); Magnesium 2.2 mg/dl (1.7-2.4); Potassium 3.4 mmol/L (3.5-5.1); Total Protein 8.1 gm/dl (6.0-8.3)
[2024-10-26 19:51] LABS: Partial Thromboplastin Ratio 0.9; Partial Thromboplastin Time 25 Seconds (21-31); Prothrombin Time 10.4 Seconds (9.0-12.0)
--- NOTE | 2024-10-26 20:45 | CT Scan Report ---
Exam(s): CT HEAD Without Contrast EXAM: CT Head Without Intravenous Contrast CLINICAL HISTORY: Reason for exam: neuro deficit, acute stroke suspected. TECHNIQUE: Axial computed tomography images of the head/brain without intravenous contrast. CTDI is 36.31 mGy and DLP is 546.36 mGy-cm. Automated exposure control was utilized for the study. A dose lowering technique was utilized adhering to the principles of ALARA. COMPARISON: No relevant prior studies available. FINDINGS: Brain: atrophy and chronic microvascular ischemic changes. . No hemorrhage, extra-axial fluid collection, mass effect, or edema. Ventricles: Unremarkable. Bones/joints: Unremarkable. No fracture. Soft tissues: Unremarkable. Sinuses: No acute sinusitis. Mastoid air cells: Unremarkable as visualized. IMPRESSION: 1. No acute intracranial abnormality. Communications: Call Doctor Stroke Electronically signed by: Jamel Haynes MD 10/26/24 20:44 PM
--- NOTE | 2024-10-26 20:46 | CT Scan Report ---
Exam(s): CTA HEAD With Contrast IV Amt: 119 ml optiray 320 EXAM: CT Angiography Head With Intravenous Contrast CLINICAL HISTORY: Reason for exam: neuro deficit, acute stroke suspected. TECHNIQUE: Axial computed tomographic angiography images of the head with intravenous contrast. CTDI is 12.87 mGy and DLP is 434.82 mGy-cm. Automated exposure control was utilized for the study. A dose lowering technique was utilized adhering to the principles of ALARA. MIP reconstructed images were created and reviewed. CONTRAST: Patient received 119 ml optiray 320 of IV contrast COMPARISON: No relevant prior studies available. FINDINGS: Right internal carotid artery: No acute findings. Intracranial segment is patent with no significant stenosis. No aneurysm. Right anterior cerebral artery: Unremarkable. No occlusion or significant stenosis. No aneurysm. Right middle cerebral artery: Unremarkable. No occlusion or significant stenosis. No aneurysm. Right posterior cerebral artery: Unremarkable. No occlusion or significant stenosis. No aneurysm. Right vertebral artery: Unremarkable as visualized. Left internal carotid artery: No acute findings. Intracranial segment is patent with no significant stenosis. No aneurysm. Left anterior cerebral artery: Unremarkable. No occlusion or significant stenosis. No aneurysm. Left middle cerebral artery: Unremarkable. No occlusion or significant stenosis. No aneurysm. Left posterior cerebral artery: Unremarkable. No occlusion or significant stenosis. No aneurysm. Left vertebral artery: Unremarkable as visualized. Basilar artery: Unremarkable. No occlusion or significant stenosis. No aneurysm. IMPRESSION: Normal head CTA. Communications: Call Doctor Stroke Electronically signed by: Jamel Haynes MD 10/26/24 20:46 PM
--- NOTE | 2024-10-26 20:49 | CT Scan Report ---
Exam(s): CTA NECK With Contrast IV Amt: 119 ml optiray 320 EXAM: CT Angiography Neck With Intravenous Contrast CLINICAL HISTORY: Reason for exam: neuro deficit, acute stroke suspected. TECHNIQUE: Routine carotid CT angiography protocol was performed with intravenous contrast. NASCET criteria using the distal ICAs for comparison were used for evaluation of stenoses. CTDI is 12.87 mGy and DLP is 434.82 mGy-cm. Automated exposure control was utilized for the study. A dose lowering technique was utilized adhering to the principles of ALARA. MIP reconstructed images were created and reviewed. CONTRAST: Patient received 119 ml optiray 320 of IV contrast COMPARISON: None. FINDINGS: VASCULATURE: Right common carotid artery: Unremarkable. No occlusion or significant stenosis. No dissection. Right internal carotid artery: Unremarkable. Extracranial segment is patent with no occlusion or significant stenosis. No dissection. Right vertebral artery: Unremarkable. No occlusion or significant stenosis. No dissection. Left common carotid artery: Unremarkable. No occlusion or significant stenosis. No dissection. Left internal carotid artery: Unremarkable. Extracranial segment is patent with no occlusion or significant stenosis. No dissection. Left vertebral artery: Unremarkable. No occlusion or significant stenosis. No dissection. NECK: Bones/joints: Unremarkable. No acute fracture. Soft tissues: Unremarkable. Lung apices: Clear. CAROTID STENOSIS REFERENCE USING NASCET CRITERIA: % ICA stenosis = (1 - narrowest ICA diameter/diameter of distal cervical ICA) x 100. Mild - <50% stenosis. Moderate - 50-69% stenosis. Severe - 70-94% stenosis. Near occlusion - 95-99% stenosis. Occluded - 100% stenosis. IMPRESSION: Negative CTA neck. Communications: Call Doctor Stroke Electronically signed by: Jamel Haynes MD 10/26/24 20:48 PM
[2024-10-26] MEDS: SODIUM CHLORIDE 0.9% 1,000 ML IV ONE (21:38)
--- NOTE | 2024-10-26 21:43 | CT Scan Report ---
Exam(s): CTA HEAD EXAM: CT Venography Head With Intravenous Contrast CLINICAL HISTORY: Reason for exam: ? ctv. TECHNIQUE: Axial computed tomographic venography images of the head with intravenous contrast. CTDI is 43 mGy and DLP is 866.17 mGy-cm. Automated exposure control was utilized for the study. A dose lowering technique was utilized adhering to the principles of ALARA. MIP reconstructed images were created and reviewed. COMPARISON: Head CT 03/03/2021 and MRI 07/16/2023 FINDINGS: Superior sagittal sinus: Unremarkable. Patent. Straight sinus: Unremarkable. Patent. Transverse sinuses: Lobular filling defects within the bilateral transverse dural venous sinuses are consistent with arachnoid granulations and were present on the prior contrast-enhanced head CT 03/03/2021. Sigmoid sinuses: Unremarkable. Patent. Internal jugular veins: Unremarkable as visualized. Internal cerebral and cortical veins: Unremarkable as visualized. IMPRESSION: Lobular filling defects within the bilateral transverse dural venous sinuses are consistent with arachnoid granulations and were present on the prior contrast-enhanced head CT 03/03/2021. Electronically signed by: Jamel Haynes MD 10/26/24 21:42 PM
--- NOTE | 2024-10-26 22:37 | History & Physical Report ---
Date of Service October 26, 2024 Assessment & Plan (1) Stroke-like symptoms: (2) Slurred speech: (3) Expressive aphasia: (4) Microscopic colitis: (5) Acute kidney injury: (6) Hypokalemia: (7) Anxiety disorder: Plan Strokelike symptoms/confusion/slurred speech/expressive aphasia- Symptoms lasted for about 1.5 hours about 24 hours prior to presentation to the ED, and in no longer present does have a video on his phone with demonstration of symptoms as noted CT scan of head showed no acute findings CTA neck was negative CTA of head showed a potential thrombus in the left transverse dural venous sinus, with recommendation to consider MRI/MRV CT venogram showed lobular filling defects within the bilateral transverse dural venous sinuses that are consistent with arachnoid granulations they were present on the prior contrast-enhanced head CT of 03/03/2021 Brain MRI has been ordered and is pending interpretation Stroke without thrombolytic order set Consult PT/OT/speech/neurology Case was discussed and directed by the ED with [facility] telestroke neurology Aspirin 81 mg daily Differential for cause of symptoms must include significant dehydration associated with worsening of transiently of microscopic colitis while still on furosemide and spironolactone Tick borne studies are ordered and pending EEG ordered Bilateral dural venous sinus toxic granulations- Per radiology interpretation, was present in 03/03/2021, and therefore considered stable MRI brain still pending Acute kidney injury- Creatinine 1.25, with base 0.94 Potassium 3.4 Klor-Con 40 mill equivalents p.o. x 1 Hold furosemide, spironolactone and hydroxyzine Give 1 L fluid bolus of normal saline The patient did pass bedside swallowing function, and will be encouraged to drink oral fluids, and will get aspirin 81 mg daily Repeat laboratories in a.m. Microscopic colitis- Patient will continue to resume her budesonide 3 x 3 mg tablets daily, as when she was decreased to 2 tablets, she had significant worsening of loose stools, which likely precipitated acute dehydration while on diuretics as noted Resume her usual heart healthy diet Elevated troponin- Troponin 16.0 on admission, with follow-up pending The patient will be admitted to telemetry for serial cardiac enzymes, serial EKG's, cardiac rhythm monitoring and a 2-D echocardiogram with Dopplers. History of Present Illness Chief Complaint: The patient presents to the emergency department with her , with complaint of episode of expressive aphasia, with appearance difficulty with word finding and slurred speech, of duration about 1.5 hours at 9 PM on the evening of 10/25. The did record part of the episode on his telephone, and symptoms appeared as stated here, as well as the patient appeared confused. Patient symptoms have resolved, were not accompanied by focal weakness in arms or legs, and was not accompanied by dysphagia. Primary Care Provider: Preston Winters MD The patient is a 78-year-old female with a past medical history including SNHL bilaterally, multiple right-sided rib fractures 07/03/24, bilateral lower extremity edema, microscopic colitis on budesonide, prediabetes, hypertension, hyperlipidemia, anxiety disorder, GERD and hypothyroidism. The patient presents to the emergency department with acute onset of symptoms as noted above. However, patient does report that she has had a few weeks of loose stools when her budesonide was decreased from 3 to 2 tablets, and when she resumed her dosing back up to 3 tablets, the microscopic colitis became under better control again. She did continue her furosemide and spironolactone during this interval, and on a clinical examination appears moderately dehydrated with acute kidney injury and hypokalemia. Allergies Allergy/AdvReac Type Severity Reaction Status Date / Time Sulfa (Sulfonamide Allergy Unknown CAN'T Verified 09/28/24 14:16 Antibiotics) REMEMBER sulfamethoxazole Allergy Unknown CAN'T Verified 09/28/24 14:16 [From Bactrim] REMEMBER trimethoprim [From Bactrim] Allergy Unknown CAN'T Verified 09/28/24 14:16 REMEMBER latex AdvReac Intermediate contact Verified 09/28/24 14:16 skin rash adhesive AdvReac Mild BAND-AIDS Verified 09/28/24 14:16 - RED SKIN Home Medications Medication Instructions Recorded Confirmed Type nebulizers #1 ea 12/25/19 10/26/24 Rx nystatin-triamcinolone 100,000 1 applic topical TID PRN Skin 07/16/23 10/26/24 History unit/gram-0.1 % topical ointment Irritation promethazine 25 mg tablet 25 mg PO QID PRN nausea and 03/01/24 10/26/24 Rx vomiting #90 tabs cetirizine 10 mg tablet (Zyrtec) 20 mg PO DAILY PRN Allergy Symptoms 04/07/24 10/26/24 History pravastatin 40 mg tablet 40 mg PO DAILY #90 tabs 05/31/24 10/26/24 Rx budesonide 3 mg 9 mg PO QAM 07/03/24 10/26/24 History capsule,delayed,extended release oxycodone 5 mg tablet 5 mg PO Q6H PRN pain (scale score 08/11/24 10/26/24 Rx 7-10) #30 tabs spironolactone 50 mg tablet 50 mg PO DAILY #90 tabs 08/23/24 10/26/24 Rx hydroxyzine HCl 25 mg tablet 25 mg PO BID PRN itching #90 tabs 08/24/24 10/26/24 Rx ondansetron 4 mg disintegrating 4 mg PO Q4H PRN nausea and 08/24/24 10/26/24 Rx tablet vomiting 0 days #60 tabs potassium chloride 20 mEq 20 meq PO .COMPLEX #30 tabs 08/24/24 10/26/24 Rx tablet,extended release duloxetine 30 mg capsule,delayed See Rx Instructions PO .COMPLEX 08/25/24 10/26/24 Rx release #270 caps furosemide 40 mg tablet 40 mg PO QAM #90 tabs 08/25/24 10/26/24 Rx omeprazole 20 mg capsule,delayed 20 mg PO DAILY #90 caps 08/25/24 10/26/24 Rx release lorazepam 2 mg tablet 2 mg PO TID PRN anxiety #90 tabs 10/17/24 10/26/24 Rx zolpidem 10 mg tablet 10 mg PO QPM #30 tabs 10/17/24 10/26/24 Rx albuterol sulfate 90 mcg/actuation 2 puff inhalation Q6 PRN Shortness 10/26/24 10/26/24 History aerosol inhaler Of Breath Or Wheezing Past Med/Surg History Problem List (Updated 10/27/24 @ 03:06 by Dmitry Britton MD) Acute kidney injury Stroke-like symptoms Slurred speech (Acute) Expressive aphasia (Acute) TIA (transient ischemic attack) (Acute) Vertigo Dizziness Sensorineural hearing loss (SNHL) of both ears Multiple fractures of ribs, right side, initial encounter for closed fracture (Acute ~07/03/24) Acute right anterolateral ninth and 10th rib fractures Bilateral lower extremity edema UTI (urinary tract infection) Microscopic colitis Multiple fractures of ribs of right side Acute right anterolateral ninth and 10th rib fractures from a fall [place] Fe deficiency anemia Status post laser cataract surgery of both eyes Anemia, mild Anemia Insect bite Rash Cellulitis of toe of left foot Vitamin D deficiency (Acute) Prediabetes (Acute) Osteoporosis (Acute) Hypokalemia (Acute) Hypertension (Acute) Hyperlipidemia (Acute) Anxiety disorder Cough Seasonal allergies Acid reflux Otalgia of right ear Acquired deviated nasal septum Impacted cerumen, right ear Hypothyroidism Current use of proton pump inhibitor Medical History Right wrist fracture Basal cell carcinoma of nose 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 Acute bronchitis Neurodermatitis Snow's neuroma of right foot History of malignant neoplasm of breast (~1996) History of hypokalemia History of homocysteinuria Acquired bilateral renal cysts Edema Fatigue Insomnia Osteoarthritis of knee Weakness Hypokalemia Surgical History H/O tooth extraction Hx of colonoscopy (~2013) History of total right knee replacement (2014) S/P lumpectomy, left breast S/P total abdominal hysterectomy and bilateral salpingo-oophorectomy H/O cosmetic surgery S/P skin biopsy S/P skin biopsy S/P rhinoplasty H/O oral surgery S/P nasal surgery S/P dilation and curettage Family History Father Aortic aneurysm Skin cancer Heart disease Sister Arthritis Osteoporosis Mother Breast cancer Colorectal cancer Macular degeneration Grandmother (Maternal) Breast cancer Grandmother (Paternal) Heart disease Brother Prostate cancer Denies family history of Ovarian cancer Myocardial infarction Social History Smoking Status: Never smoker Second Hand Exposure: No; Do You Dip or Chew Tobacco: No; Hx Alcohol Use: No Hx Substance Use: No Preferred Language: Turkish Communication Ability: Effective Visual Impairment: No Limitations Hearing Ability: Normal [employer] Required: No Beliefs That Will Affect Care: None marital status: Current Living Situation: Spouse Current Living Situation Comment: lives at home with and daughter current occupational status: retired Feels Safe at Home: Yes Diet: Weight Watchers during the past year weight has: increased > 10 lbs Dental Care, Regularly: Yes Physical Activity Frequency: Does not Exercise Seatbelt Use: always Sunscreen Use: No Assistive Devices: Glasses Review of Systems Review of Systems: The patient denies chest pain, palpitations, shortness of breath, dyspnea on exertion, cough, lower extremity swelling, sore throat, fevers, chills, sweats, nausea, vomiting, diarrhea , constipation, abdominal pain, pelvic pain, blood in urine or stool, dysuria, urinary frequency or urgency, loss of consciousness, rash, abnormal bruising or bleeding, imbalance, focal weakness, numbness or tingling in arms or legs, generalized arthralgias or myalgias, back or neck pain, or night sweats. The review of systems is otherwise negative other than for that already noted above, and at least 10 systems have been reviewed. Physical Exam Physical Exam: The patient is awake, alert and oriented 3, well developed and well nourished, normocephalic and atraumatic, lying in bed and in no acute distress. HEENT--PERRL, EOMI, mucous membranes and oropharynx moderately dry. Neck--supple. No JVD. No bruits. Thyroid normal, trachea midline, no adenopathy. Heart--normal S1 and S2. No murmurs, rubs or gallops. Lungs--clear bilaterally, no respiratory distress, no accessory muscle use. Abdomen--normal bowel sounds and soft. Nontender. Nondistended, no hernias or masses, no organomegaly. Extremities--no cyanosis or clubbing. No edema. There are good distal pulses b/l. Dermatologic--skin appears mildly dry Neurologic--cranial nerves II through XII grossly intact. Rheumatologic--normal range of motion. Psychiatric--normal affect. Results & Data Results & Data Vital Signs (Past 12 Hours) Vital Signs Temp Pulse Pulse Resp BP Pulse Ox O2 Del Method 10/26/24 20:34 82 18 10/26/24 20:30 74 14 153/96 H 95 10/26/24 20:27 75 24 144/90 H 95 10/26/24 20:00 144/90 H 10/26/24 19:36 78 25 H 95 10/26/24 19:30 146/90 H 10/26/24 19:21 76 21 94 10/26/24 19:07 79 12/12/24 19:05 149/99 H 10/26/24 19:03 81 26 H 94 10/26/24 18:40 36.7 C 94 H 20 135/85 95 Room Air Laboratory Results Laboratory Results WBC 10.18 K/ul (4.8-10.8) 10/26/24 19:04 RBC 5.79 M/uL (4.20-5.40) H 10/26/24 19:04 Hgb 14.2 g/dl (12.0-16.0) 10/26/24 19:04 Hct 45.2 % (37.0-47.0) 10/26/24 19:04 MCV 78.1 fL (80.0-100.0) L 10/26/24 19:04 MCH 24.5 pg (25.0-34.0) L 10/26/24 19:04 MCHC 31.4 g/dL (32.0-36.0) L 10/26/24 19:04 RDW Std Deviation 46.3 fL (36.4-46.3) 10/26/24 19:04 RDW Coeff of Marie 17.2 % (11.5-14.5) H 10/26/24 19:04 Plt Count 359 K/uL (130-400) 10/26/24 19:04 MPV 9.7 fL (9.4-12.4) 10/26/24 19:04 Immature Gran % (Auto) 0.7 % 10/26/24 19:04 Neut % (Auto) 66.0 % 10/26/24 19:04 Lymph % (Auto) 22.5 % 10/26/24 19:04 [place] % (Auto) 8.8 % 10/26/24 19:04 Eos % (Auto) 1.1 % 10/26/24 19:04 Baso % (Auto) 0.9 % 10/26/24 19:04 Neut # (Auto) 6.72 K/uL (1.40-6.50) H 10/26/24 19:04 Lymph # (Auto) 2.29 K/uL (1.20-3.40) 10/26/24 19:04 [place] # (Auto) 0.90 K/uL (0.11-0.59) H 10/26/24 19:04 Eos # (Auto) 0.11 K/uL (0.00-0.50) 10/26/24 19:04 Baso # (Auto) 0.09 K/uL (0.00-0.20) 10/26/24 19:04 Immature Gran # (Auto) 0.07 K/uL (0.01-0.20) 10/26/24 19:04 PT 10.4 Seconds (9.0-12.0) 10/26/24 19:04 INR 1.0 (0.9-1.1) 10/26/24 19:04 APTT 25 Seconds (21-31) 10/26/24 19:04 PTT Ratio 0.9 10/26/24 19:04 Sodium 139 mmol/L (136-145) 10/26/24 19:04 Potassium 3.4 mmol/L (3.5-5.1) L 10/26/24 19:04 Chloride 101 mmol/L (98-107) 10/26/24 19:04 Carbon Dioxide 26 mmol/L (21-32) 10/26/24 19:04 Anion Gap 12 (3-11) H 10/26/24 19:04 BUN 21 mg/dl (6-23) 10/26/24 19:04 Creatinine 1.25 mg/dl (0.6-1.2) H 10/26/24 19:04 Est Cr Clr Drug Dosing 37.0 ml/min 10/26/24 19:04 eGFR 44.67 10/26/24 19:04 BUN/Creatinine Ratio 16.8 (10-20) 10/26/24 19:04 Glucose 124 mg/dl (70-99(Fasting)) H 10/26/24 19:04 Calcium 10.1 mg/dl (8.6-10.3) 10/26/24 19:04 Magnesium 2.2 mg/dl (1.7-2.4) 10/26/24 19:04 Total Bilirubin 0.6 mg/dl (0.2-1.0) 10/26/24 19:04 AST 29 U/L (13-39) 10/26/24 19:04 ALT 27 U/L (7-52) 10/26/24 19:04 Alkaline Phosphatase 64 U/L (34-104) 10/26/24 19:04 Troponin I High Sens 16.0 pg/ml (0-14) H 10/26/24 19:04 Total Protein 8.1 gm/dl (6.0-8.3) 10/26/24 19:04 Albumin 5.2 gm/dl (3.4-5.0) H 10/26/24 19:04 Globulin 2.9 gm/dl (2.5-4.0) 10/26/24 19:04 Albumin/Globulin Ratio 1.8 (0.9-2) 10/26/24 19:[address] 10/26/24 18:48 CR Exam(s): CT HEAD Without Contrast EXAM: CT Head Without Intravenous Contrast CLINICAL HISTORY: Reason for exam: neuro deficit, acute stroke suspected. TECHNIQUE: Axial computed tomography images of the head/brain without intravenous contrast. CTDI is 36.31 mGy and DLP is 546.36 mGy-cm. Automated exposure control was utilized for the study. A dose lowering technique was utilized adhering to the principles of ALARA. COMPARISON: No relevant prior studies available. FINDINGS: Brain: atrophy and chronic microvascular ischemic changes. . No hemorrhage, extra-axial fluid collection, mass effect, or edema. Ventricles: Unremarkable. Bones/joints: Unremarkable. No fracture. Soft tissues: Unremarkable. Sinuses: No acute sinusitis. Mastoid air cells: Unremarkable as visualized. IMPRESSION: 1. No acute intracranial abnormality. Communications: Call Doctor Stroke Electronically signed by: Jamel Haynes MD 10/26/24 20:44 PM Head CTA 10/26/24 18:48 CR Exam(s): CTA HEAD With Contrast IV Amt: 119 ml optiray 320 EXAM: CT Angiography Head With Intravenous Contrast CLINICAL HISTORY: Reason for exam: neuro deficit, acute stroke suspected. TECHNIQUE: Axial computed tomographic angiography images of the head with intravenous contrast. CTDI is 12.87 mGy and DLP is 434.82 mGy-cm. Automated exposure control was utilized for the study. A dose lowering technique was utilized adhering to the principles of ALARA. MIP reconstructed images were created and reviewed. CONTRAST: Patient received 119 ml optiray 320 of IV contrast COMPARISON: No relevant prior studies available. FINDINGS: Right internal carotid artery: No acute findings. Intracranial segment is patent with no significant stenosis. No aneurysm. Right anterior cerebral artery: Unremarkable. No occlusion or significant stenosis. No aneurysm. Right middle cerebral artery: Unremarkable. No occlusion or significant stenosis. No aneurysm. Right posterior cerebral artery: Unremarkable. No occlusion or significant stenosis. No aneurysm. Right vertebral artery: Unremarkable as visualized. Left internal carotid artery: No acute findings. Intracranial segment is patent with no significant stenosis. No aneurysm. Left anterior cerebral artery: Unremarkable. No occlusion or significant stenosis. No aneurysm. Left middle cerebral artery: Unremarkable. No occlusion or significant stenosis. No aneurysm. Left posterior cerebral artery: Unremarkable. No occlusion or significant stenosis. No aneurysm. Left vertebral artery: Unremarkable as visualized. Basilar artery: Unremarkable. No occlusion or significant stenosis. No aneurysm. IMPRESSION: Normal head CTA. Communications: Call Doctor Stroke Electronically signed by: Jamel Haynes MD 10/26/24 20:46 PM Neck CTA 10/26/24 18:48 CR Exam(s): CTA NECK With Contrast IV Amt: 119 ml optiray 320 EXAM: CT Angiography Neck With Intravenous Contrast CLINICAL HISTORY: Reason for exam: neuro deficit, acute stroke suspected. TECHNIQUE: Routine carotid CT angiography protocol was performed with intravenous contrast. NASCET criteria using the distal ICAs for comparison were used for evaluation of stenoses. CTDI is 12.87 mGy and DLP is 434.82 mGy-cm. Automated exposure control was utilized for the study. A dose lowering technique was utilized adhering to the principles of ALARA. MIP reconstructed images were created and reviewed. CONTRAST: Patient received 119 ml optiray 320 of IV contrast COMPARISON: None. FINDINGS: VASCULATURE: Right common carotid artery: Unremarkable. No occlusion or significant stenosis. No dissection. Right internal carotid artery: Unremarkable. Extracranial segment is patent with no occlusion or significant stenosis. No dissection. Right vertebral artery: Unremarkable. No occlusion or significant stenosis. No dissection. Left common carotid artery: Unremarkable. No occlusion or significant stenosis. No dissection. Left internal carotid artery: Unremarkable. Extracranial segment is patent with no occlusion or significant stenosis. No dissection. Left vertebral artery: Unremarkable. No occlusion or significant stenosis. No dissection. NECK: Bones/joints: Unremarkable. No acute fracture. Soft tissues: Unremarkable. Lung apices: Clear. CAROTID STENOSIS REFERENCE USING NASCET CRITERIA: % ICA stenosis = (1 - narrowest ICA diameter/diameter of distal cervical ICA) x 100. Mild - <50% stenosis. Moderate - 50-69% stenosis. Severe - 70-94% stenosis. Near occlusion - 95-99% stenosis. Occluded - 100% stenosis. IMPRESSION: Negative CTA neck. Communications: Call Doctor Stroke Electronically signed by: Jamel Haynes MD 10/26/24 20:[address] 10/26/24 20:56 Exam(s): CTA HEAD EXAM: CT Venography Head With Intravenous Contrast CLINICAL HISTORY: Reason for exam: ? ctv. TECHNIQUE: Axial computed tomographic venography images of the head with intravenous contrast. CTDI is 43 mGy and DLP is 866.17 mGy-cm. Automated exposure control was utilized for the study. A dose lowering technique was utilized adhering to the principles of ALARA. MIP reconstructed images were created and reviewed. COMPARISON: Head CT 03/03/2021 and MRI 07/16/2023 FINDINGS: Superior sagittal sinus: Unremarkable. Patent. Straight sinus: Unremarkable. Patent. Transverse sinuses: Lobular filling defects within the bilateral transverse dural venous sinuses are consistent with arachnoid granulations and were present on the prior contrast-enhanced head CT 03/03/2021. Sigmoid sinuses: Unremarkable. Patent. Internal jugular veins: Unremarkable as visualized. Internal cerebral and cortical veins: Unremarkable as visualized. IMPRESSION: Lobular filling defects within the bilateral transverse dural venous sinuses are consistent with arachnoid granulations and were present on the prior contrast-enhanced head CT 03/03/2021. Electronically signed by: Jamel Haynes MD 10/26/24 21:42 PM Code Status & VTE Plan Code Status Full code VTE Prophylaxis Plan VTE Prophylaxis will be ordered: Yes PG Care Time/CCT Total # of Minutes Spent Total Time Spent with Patient: Total time spent is greater than 50% in coordination of care (as documented) at patient's floor/unit and/or counseling patient: Coding Level of Care Code 20062 INT INP/OBS CARE 3/75MIN Diagnoses Stroke-like symptoms R29.90 Slurred speech R47.81 Expressive aphasia R47.01 Microscopic colitis K52.839 Acute kidney injury N17.9 Hypokalemia E87.6 Anxiety disorder F41.9
[2024-10-26] MEDS: POTASSIUM CHLORIDE CRTAB 20 MEQ TABCR PO STA (22:38)
[2024-10-26] MEDS ORDERED: ALBUTEROL HFA 8 GM INHALER INH PRN (23:41)
[2024-10-26] MEDS ORDERED: PHARMACIST DISCHARGE MED REC CONSULT PRN (23:41)
[2024-10-26] MEDS ORDERED: CETIRIZINE HCL 10 MG TABLET PO PRN (23:41)
[2024-10-26] MEDS ORDERED: POTASSIUM CHLORIDE CRTAB 20 MEQ TABCR PO SCH (23:41)
[2024-10-26] MEDS ORDERED: ZOLPIDEM TARTRATE 5 MG TAB PO PRN (23:47)
[2024-10-27] MEDS: ZOLPIDEM TARTRATE 5 MG TAB PO SCH (01:08)
[2024-10-27] MEDS: PRAVASTATIN SOD 40 MG TAB PO SCH (01:08)
[2024-10-27] MEDS: DULoxetine HCL 30 MG CAP PO SCH (01:09)
--- NOTE | 2024-10-27 03:19 | Magnetic Resonance Report ---
Exam(s): MRI HEAD Without Contrast EXAM: MR Head Without Intravenous Contrast CLINICAL HISTORY: Reason for exam: stroke-like symptoms. TECHNIQUE: Magnetic resonance images of the head/brain without intravenous contrast in multiple planes. COMPARISON: Prior head CT from October 26, 2024. FINDINGS: Brain: There is a tiny acute ischemic injury within the left temporal and frontal lobes in addition to the insular cortex without evidence of hemorrhagic transformation. Remote ischemic injury of the right cerebellum. Mild nonspecific white matter changes. The flow voids at the base the brain are intact. Ventricles: Unremarkable. No ventriculomegaly. Bones/joints: Unremarkable. No acute fracture. Sinuses: Unremarkable as visualized. No acute sinusitis. Mastoid air cells: Unremarkable as visualized. No mastoid effusion. Orbits: Bilateral lens replacements. IMPRESSION: Tiny acute ischemic injuries in the left temporal and frontal lobes in addition to the insular cortex without evidence of hemorrhagic transformation. Communications: Verify Receipt Electronically signed by: Jacquie Gillespie MD 10/27/24 03:19 AM
[2024-10-27 06:09] LABS: Albumin Level 3.8 gm/dl (3.4-5.0); BUN Creatinine Ratio 20.7 (10-20); Calcium 8.8 mg/dl (8.6-10.3); Chol HDL Ratio 4.6 (0-5); Creatinine Clr Calc Pharmacy 53.2 ml/min; Magnesium 2.2 mg/dl (1.7-2.4); Phosphorus 3.9 mg/dl (2.5-4.9); Potassium 3.9 mmol/L (3.5-5.1)
[2024-10-27 06:15] LABS: Troponin I High Sensitivity 13.6 pg/ml (0-14)
[2024-10-27] MEDS: ACETAMINOPHEN 325 MG TAB PO PRN (06:17)
[2024-10-27 06:36] LABS: Hematocrit (blood only) 35.4 % (37.0-47.0); Hemoglobin 11.2 g/dl (12.0-16.0); Mean Corpuscular Hemoglobin 24.7 pg (25.0-34.0); Mean Corpuscular Hgb Conc 31.6 g/dL (32.0-36.0); Mean Platelet Volume 9.5 fL (9.4-12.4); Platelet Count 258 K/uL (130-400); RDW Coefficient of Variation 16.4 % (11.5-14.5); RDW Standard Deviation 46.4 fL (36.4-46.3); Red Blood Count 4.54 M/uL (4.20-5.40); White Blood Count 6.84 K/ul (4.8-10.8)
[2024-10-27 06:37] LABS: Polychromasia 1+
[2024-10-27 06:38] LABS: Basophils # (auto) 0.06 K/uL (0.00-0.20); Basophils % (auto) 0.9 %; Eosinophils # (auto) 0.07 K/uL (0.00-0.50); Immature Granulocytes # (auto) 0.03 K/uL (0.01-0.20); Immature Granulocytes % (auto) 0.4 %; Lymphocytes # (auto) 1.91 K/uL (1.20-3.40); Lymphocytes % (auto) 27.9 %; Monocytes # (auto) 0.67 K/uL (0.11-0.59); Monocytes % (auto) 9.8 %
[2024-10-27 07:35] LABS: Estimated Average Glucose 140 mg/dl; Hemoglobin A1C 6.5 % (4.5-5.6)
[2024-10-27] MEDS ORDERED: GLUCAGON FOR INJ 1 MG VIAL SQ PRN (08:20)
[2024-10-27] MEDS ORDERED: CARBOHYDRATES FOR HYPOGLYCEMIA PO PRN (08:20)
[2024-10-27] MEDS ORDERED: GLUCOSE 10 TAB/TUBE PO PRN (08:20)
[2024-10-27] MEDS ORDERED: DEXTROSE 50% 50 ML SYRINGE IV PRN (08:20)
[2024-10-27] MEDS ORDERED: GLUCOSE 40% GEL 15 GM TUBE PO PRN (08:20)
[2024-10-27] MEDS: POTASSIUM CHLORIDE CRTAB 20 MEQ TABCR PO SCH (08:27)
[2024-10-27] MEDS: DULoxetine HCL 60 MG CAP PO SCH (08:28)
[2024-10-27] MEDS: PANTOprazole 40 MG TAB PO SCH (08:28)
[2024-10-27] MEDS: BUDESONIDE EC 3 MG CAP PO SCH (08:28)
[2024-10-27] MEDS: ASPIRIN 81 MG ECTAB PO SCH (08:28)
--- NOTE | 2024-10-27 08:52 | Electrocardiogram Report ---
Test Reason : Blood Pressure : */* mmHG Vent. 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 lead placement vs. LVH Abnormal ECG When compared with ECG of 16-Jul-2023 19:01, No significant change was found Confirmed by Ori Wyatt ([id number]) on 10/27/2024 8:51:58 AM Referred By: REFERRED SELF Confirmed By: rOi Wyatt
[2024-10-27] MEDS ORDERED: PRAVASTATIN SOD 40 MG TAB PO SCH (09:00)
--- NOTE | 2024-10-27 09:14 | Neurology Consultation ---
Date of Consultation October 27, 2024 Assessment & Plan (1) Stroke-like symptoms: History of Present Illness Attending Physician: Dmitry Britton MD History of Present Illness S: pt this morning feeling well. speech resolved. mri noted for small punctate small ischemic lesions on left temporal/frontal. CTV finding is old and unchanged. chart reviewed. Admission HPI:The patient presents to the emergency department with her , with complaint of episode of expressive aphasia, with appearance difficulty with word finding and slurred speech, of duration about 1.5 hours at 9 PM on the evening of 10/25. The did record part of the episode on his telephone, and symptoms appeared as stated here, as well as the patient appeared confused. Patient symptoms have resolved, were not accompanied by focal weakness in arms or legs, and was not accompanied by dysphagia. Primary Care Provider: Preston Winters MD The patient is a 78-year-old female with a past medical history including SNHL bilaterally, multiple right-sided rib fractures 07/03/24, bilateral lower extremity edema, microscopic colitis on budesonide, prediabetes, hypertension, hyperlipidemia, anxiety disorder, GERD and hypothyroidism. The patient presents to the emergency department with acute onset of symptoms as noted above. However, patient does report that she has had a few weeks of loose stools when her budesonide was decreased from 3 to 2 tablets, and when she resumed her dosing back up to 3 tablets, the microscopic colitis became under better control again. She did continue her furosemide and spironolactone during this interval, and on a clinical examination appears moderately dehydrated with acute kidney injury and hypokalemia. Allergies Allergy/AdvReac Type Severity Reaction Status Date / Time Sulfa (Sulfonamide Allergy Unknown CAN'T Verified 09/28/24 14:16 Antibiotics) REMEMBER sulfamethoxazole Allergy Unknown CAN'T Verified 09/28/24 14:16 [From Bactrim] REMEMBER trimethoprim [From Bactrim] Allergy Unknown CAN'T Verified 09/28/24 14:16 REMEMBER latex AdvReac Intermediate contact Verified 09/28/24 14:16 skin rash adhesive AdvReac Mild BAND-AIDS Verified 09/28/24 14:16 - RED SKIN Home Medications Medication Instructions Recorded Confirmed Type nebulizers #1 ea 12/25/19 10/26/24 Rx nystatin-triamcinolone 100,000 1 applic topical TID PRN Skin 07/16/23 10/26/24 History unit/gram-0.1 % topical ointment Irritation promethazine 25 mg tablet 25 mg PO QID PRN nausea and 03/01/24 10/26/24 Rx vomiting #90 tabs cetirizine 10 mg tablet (Zyrtec) 20 mg PO DAILY PRN Allergy Symptoms 04/07/24 10/26/24 History pravastatin 40 mg tablet 40 mg PO DAILY #90 tabs 05/31/24 10/26/24 Rx budesonide 3 mg 9 mg PO QAM 07/03/24 10/26/24 History capsule,delayed,extended release oxycodone 5 mg tablet 5 mg PO Q6H PRN pain (scale score 08/11/24 10/26/24 Rx 7-10) #30 tabs spironolactone 50 mg tablet 50 mg PO DAILY #90 tabs 08/23/24 10/26/24 Rx hydroxyzine HCl 25 mg tablet 25 mg PO BID PRN itching #90 tabs 08/24/24 10/26/24 Rx ondansetron 4 mg disintegrating 4 mg PO Q4H PRN nausea and 08/24/24 10/26/24 Rx tablet vomiting 0 days #60 tabs potassium chloride 20 mEq 20 meq PO .COMPLEX #30 tabs 08/24/24 10/26/24 Rx tablet,extended release duloxetine 30 mg capsule,delayed See Rx Instructions PO .COMPLEX 08/25/24 10/26/24 Rx release #270 caps furosemide 40 mg tablet 40 mg PO QAM #90 tabs 08/25/24 10/26/24 Rx omeprazole 20 mg capsule,delayed 20 mg PO DAILY #90 caps 08/25/24 10/26/24 Rx release lorazepam 2 mg tablet 2 mg PO TID PRN anxiety #90 tabs 10/17/24 10/26/24 Rx zolpidem 10 mg tablet 10 mg PO QPM #30 tabs 10/17/24 10/26/24 Rx albuterol sulfate 90 mcg/actuation 2 puff inhalation Q6 PRN Shortness 10/26/24 10/26/24 History aerosol inhaler Of Breath Or Wheezing Patient History Medical History Right wrist fracture Basal cell carcinoma of nose 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 Acute bronchitis Neurodermatitis Snow's neuroma of right foot History of malignant neoplasm of breast (~1996) History of hypokalemia History of homocysteinuria Acquired bilateral renal cysts Edema Fatigue Insomnia Osteoarthritis of knee Weakness Hypokalemia Surgical History H/O tooth extraction Hx of colonoscopy (~2013) History of total right knee replacement (2014) S/P lumpectomy, left breast S/P total abdominal hysterectomy and bilateral salpingo-oophorectomy H/O cosmetic surgery S/P skin biopsy S/P skin biopsy S/P rhinoplasty H/O oral surgery S/P nasal surgery S/P dilation and curettage Family History Father Aortic aneurysm Skin cancer Heart disease Sister Arthritis Osteoporosis Mother Breast cancer Colorectal cancer Macular degeneration Grandmother (Maternal) Breast cancer Grandmother (Paternal) Heart disease Brother Prostate cancer Denies family history of Ovarian cancer Myocardial infarction Social History Smoking Status: Never smoker Second Hand Exposure: No; Do You Dip or Chew Tobacco: No; Hx Alcohol Use: No Hx Substance Use: No Preferred Language: Citizen Of [place] Communication Ability: Effective Visual Impairment: No Limitations Hearing Ability: Normal 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 Beliefs That Will Affect Care: None marital status: Current Living Situation: Spouse Current Living Situation Comment: lives at home with and daughter current occupational status: retired Other Information That Helps Us Care for You: No Feels Safe at Home: Yes Safety Concerns: Feels Safe At This Time Diet: Weight Watchers during the past year weight has: increased > 10 lbs Dental Care, Regularly: Yes Physical Activity Frequency: Does not Exercise Seatbelt Use: always Sunscreen Use: No Assistive Devices: Glasses Review of Systems Review of Systems: All systems reviewed & are unremarkable except as noted in Subjective Constitutional: as per Subjective / HPI Eyes: as per Subjective / HPI Ear, Nose, Mouth, Throat: as per Subjective / HPI Respiratory: as per Subjective / HPI Cardiovascular: as per Subjective / HPI Gastrointestinal: as per Subjective / HPI Musculoskeletal: as per Subjective / HPI Integumentary: as per Subjective / HPI Neurologic: as per Subjective / HPI Psychiatric: as per Subjective / HPI Endocrine: as per Subjective / HPI Hematologic / Lymphatic: as per Subjective / HPI Allergy / Immunological: as per Subjective / HPI Exam (Neuro) Physical Exam: HEENT: normocephalic Neuro: Mental: AOx4, fluent speech, normal comprehension, no apraxia, no L/R confusion, no neglect CN: PERRL, Full EOM, symmetric face, midline T/U/P, 5/5 SCM/traps. Motor: No abnormal movements, normal tone and bulk, 5/5 t/o bilaterally Sens: intact to touch b/l grossly Coord: intact FNT b/l DTR: 2+ sym b/l Gait: intact grossly Impression: 78 yo female with small acute ischemic stroke on left temporal/frontal area, non focal exam and stable. Recommendations: 1. Standard stroke work up as planned 2. antiplatelet therapy: * DAPT (dual antiplatelet therapy): start for pts with ABCD2 score 4 or higher. Initial loading dose with ASA 325mg and Plavix 300mg (if pt has not been started), then ASA 81mg daily and Plavix 75mg daily. Continue DAPT for 21 days. After that, can continue single antiplatelet therapy (either ASA or Plavix). 3. Images:TTE with bubble 4. Permissive Hypertension for next 24 h rs. Keep SBP goal range less than 220. Avoid hypotension. Do not stop beta-jass if on it. 6. Long-term SBP goal less than 130. 7. Plenty of hydration including IV flui d if possible (use isotonic solution) next 1-2 days. Avoid hypovolemia and hypotension. 8. Initiate DVT prevention therapy. 9. Avoid hypoglycemia, serum glucose goa l during hospitalization: 140-180. 10. Long-term HgA1c goal less than 7. 11. Start statin if not on it and no abs olute contraindication, long-term LDL goal less than 70. 12. Head of bed up 30 degrees if possibl e. 14. Telemetry monitoring. Consider correction cardiac monitoring, i.e. MCOT (mobile cardiac outpatient telemetry) or ICM (insertable leverman, e.g. LINQ), if never had intermodal dispatcher cardiac monitoring done previously. And if found to have atrial flutter or fibrillation, should consider anticoagulation therapy if no contraindication. please call again if new question. otherwise routine stroke care as above. Chart reviewed I have spent more than 50% educating patient about potential diagnosis and neurological evaluation and coordinating care with patient's treatment team. Total time spent (including chart review and coordination of care): 45 min (this includes chart review). Results & Data Vital Signs (Past 12 Hours) Vital Signs Temp Pulse Pulse Resp BP BP Pulse Ox 10/27/24 08:47 36.8 C 68 17 161/83 H 96 10/27/24 07:41 69 10/27/24 02:25 36.7 C 61 16 126/75 93 10/27/24 00:36 70 10/26/24 23:41 36.3 C L 63 20 161/97 H 97 10/26/24 23:41 10/26/24 23:40 36.3 C L 75 18 177/108 H 96 10/26/24 23:24 77 22 147/100 H 99 Pulse Ox O2 Del Method O2 Del Method 10/27/24 08:47 Room Air 10/27/24 07:41 10/27/24 02:25 Room Air 10/27/24 00:36 10/26/24 23:41 Room Air 10/26/24 23:41 96 Room Air 10/26/24 23:40 Room Air 10/26/24 23:24 Room Air PG Care Time/CCT Total # of Minutes Spent Total Time Spent with Patient: Total time spent is greater than 50% in coordination of care (as documented) at patient's floor/unit and/or counseling patient: Coding Level of Care Code 79818 IN/OBS CONSULT LVL 3,45M Diagnoses Stroke-like symptoms R29.90
--- NOTE | 2024-10-27 09:16 | Electroencephalogram ---
EEG Procedure Note Date of Service October 27, 2024 Start / End Times Start Time: 743 End Time: 803 Referring Physician priscilla sánchez History stroke like symptoms Home Medication List Medication Instructions Recorded Confirmed Type nebulizers #1 ea 12/25/19 10/26/24 Rx nystatin-triamcinolone 100,000 1 applic topical TID PRN Skin 07/16/23 10/26/24 History unit/gram-0.1 % topical ointment Irritation promethazine 25 mg tablet 25 mg PO QID PRN nausea and 03/01/24 10/26/24 Rx vomiting #90 tabs cetirizine 10 mg tablet (Zyrtec) 20 mg PO DAILY PRN Allergy Symptoms 04/07/24 10/26/24 History pravastatin 40 mg tablet 40 mg PO DAILY #90 tabs 05/31/24 10/26/24 Rx budesonide 3 mg 9 mg PO QAM 07/03/24 10/26/24 History capsule,delayed,extended release oxycodone 5 mg tablet 5 mg PO Q6H PRN pain (scale score 08/11/24 10/26/24 Rx 7-10) #30 tabs spironolactone 50 mg tablet 50 mg PO DAILY #90 tabs 08/23/24 10/26/24 Rx hydroxyzine HCl 25 mg tablet 25 mg PO BID PRN itching #90 tabs 08/24/24 10/26/24 Rx ondansetron 4 mg disintegrating 4 mg PO Q4H PRN nausea and 08/24/24 10/26/24 Rx tablet vomiting 0 days #60 tabs potassium chloride 20 mEq 20 meq PO .COMPLEX #30 tabs 08/24/24 10/26/24 Rx tablet,extended release duloxetine 30 mg capsule,delayed See Rx Instructions PO .COMPLEX 08/25/24 10/26/24 Rx release #270 caps furosemide 40 mg tablet 40 mg PO QAM #90 tabs 08/25/24 10/26/24 Rx omeprazole 20 mg capsule,delayed 20 mg PO DAILY #90 caps 08/25/24 10/26/24 Rx release lorazepam 2 mg tablet 2 mg PO TID PRN anxiety #90 tabs 10/17/24 10/26/24 Rx zolpidem 10 mg tablet 10 mg PO QPM #30 tabs 10/17/24 10/26/24 Rx albuterol sulfate 90 mcg/actuation 2 puff inhalation Q6 PRN Shortness 10/26/24 10/26/24 History aerosol inhaler Of Breath Or Wheezing Inpatient Medication List Acetaminophen (Acetaminophen 325 Mg Tab) 650 mg PO Q4H PRN PRN Reason: Pain or Fever Stop: 11/25/24 23:40 Last Admin: 10/27/24 06:17 Dose: 650 mg Documented By: EMANUEL Aspirin (Aspirin 81 Mg Ectab) 81 mg PO [facility] Stop: 11/26/24 08:59 Last Admin: 10/27/24 08:28 Dose: 81 mg Documented By: Budesonide (Budesonide Ec 3 Mg Cap) 9 mg PO [facility] Stop: 11/26/24 08:59 Last Admin: 10/27/24 08:28 Dose: 9 mg Documented By: Duloxetine HCl (Duloxetine Hcl 30 Mg Cap) 30 mg PO [facility] Stop: 11/25/24 23:44 Last Admin: 10/27/24 01:09 Dose: 30 mg Documented By: EMANUEL Duloxetine HCl (Duloxetine Hcl 60 Mg Cap) 60 mg PO [facility] Stop: 11/26/24 08:59 Last Admin: 10/27/24 08:28 Dose: 60 mg Documented By: Pantoprazole Sodium (Pantoprazole 40 Mg Tab) 40 mg PO DAILY [facility] Stop: 11/26/24 08:59 Last Admin: 10/27/24 08:28 Dose: 40 mg Documented By: MS Potassium Chloride (Potassium Chloride Crtab 20 Meq Tabcr) 20 meq PO [facility] Stop: 11/26/24 08:59 Last Admin: 10/27/24 08:27 Dose: 20 meq Documented By: MS Pravastatin Sodium (Pravastatin Sod 40 Mg Tab) 40 mg PO [facility] Stop: 11/26/24 00:29 Last Admin: 10/27/24 01:08 Dose: 40 mg Documented By: EMANUEL Zolpidem Tartrate (Zolpidem Tartrate 5 Mg Tab) 10 mg PO [facility] Stop: 11/26/24 00:29 Last Admin: 10/27/24 01:08 Dose: 10 mg Documented By: EMANUEL Discontinued Medications Sodium Chloride (Nss) 1,000 mls @ 999 mls/hr IV .Q1H1M ONE Stop: 10/26/24 21:43 Last Infusion: 10/26/24 22:44 Dose: Infused Documented By: Admin: 10/26/24 21:38 Dose: 999 mls/hr Documented By: PRIYA Ioversol (Optiray 320 125ml) 119 ml IV ONCE ONE Stop: 10/26/24 19:42 Last Admin: 10/26/24 19:41 Dose: 119 ml Documented By: MARTA Ioversol (Optiray 320 125ml) 119 ml IV ONCE ONE Stop: 10/26/24 21:11 Last Admin: 10/26/24 21:10 Dose: 119 ml Documented By: PLW Potassium Chloride (Potassium Chloride Crtab 20 Meq Tabcr) 40 meq PO NOW STA Stop: 10/26/24 22:16 Last Admin: 10/26/24 22:38 Dose: 40 meq Documented By: PRIYA Description This is a 21 electrode EEG with a single channel dedicated to limited EKG. The electrodes were placed in accordance with the International 10-20 system. Interpretation This is a 21 electrode EEG with a single channel dedicated to limited EKG. The electrodes were placed in accordance with the International 10-20 system. There is a posterior dominant rhythm of 8 to 9 Hz which is symmetrically distributed and attenuates with eye opening. There is a normal anterior to posterior organization. Photic stimulation: unremarkable Hyperventilation performed: ___ unremarkable; _x_ not performed. There is no focal slowing. No epileptiform abnormalities. Sleep stage: _x_ not achieved, ___drowsy state, ___ Stage II, ___ REM stage achieved. Interpretation Normal-appearing awake/sleep EEG. [facility] EEG Procedure Codes Indication for Procedure (1) Stroke-like symptoms: Neurology Neurology: 77874 EEG include record awake & drowsy
--- NOTE | 2024-10-27 09:22 | XCELERA ---
[id number]
[2024-10-27] MEDS: ASPIRIN 81 MG CHEW PO STA (10:51)
[2024-10-27] MEDS: CLOPIDOGREL BISULFATE 300 MG TAB PO STA (10:51)
--- NOTE | 2024-10-27 10:55 | Pharmacy Report ---
- Date of Service October 27, 2024 - Pharmacy CVA/TIA Medication Review Medications to Prevent Stroke handout has been added to the patients discharge packet. Antiplatelet(s) * Dual antiplatelet therapy (ASA + Plavix) for 21 days then single antiplatelet agent Cholesterol * On Pravastatin 40 mg daily (moderate intensity statin) * High intensity statin deferred due to age >75 DVT Prophylaxis * SCD knee Therapeutic Anticoagulation * No history of Afib/Aflutter noted Type 2 Diabetes * Patient has borderline T2DM. Will defer to primary care provider.
[2024-10-27] MEDS: oxyCODONE HCL IR 5 MG TAB (IMMEDIATE RELEASE) PO PRN (10:58)
--- NOTE | 2024-10-27 12:11 | Hospitalist Progress Note ---
Date of Service October 27, 2024 Assessment & Plan (1) Acute CVA (cerebrovascular accident): (2) Hypertension: (3) Acute kidney injury: (4) Mixed hyperlipidemia: (5) Type 2 diabetes mellitus: (6) Microscopic colitis: (7) Fe deficiency anemia: (8) Hypothyroidism: (9) Obesity (BMI 30-39.9): Plan 78-year-old female with past medical history of prediabetes, hypothyroidism not on levothyroxine for past 6 months, microscopic colitis on chronic budesonide, hyperlipidemia presented to the ED with episode of expressive aphasia with word finding difficulty and slurred speech which lasted for 1-1/2 hours at 9 PM on the evening of 10/15/2024. #Acute small ischemic stroke on left temporal/frontal area #Essential hypertension #Hyperlipidemia #Mild to moderate mitral regurgitation #Bilateral dural venous sinus toxic granulations: Chronic Strokelike symptoms/confusion/slurred speech/expressive aphasia- Symptoms lasted for about 1.5 hours about 24 hours prior to presentation to the ED, and in no longer present does have a video on his phone with demonstration of symptoms as noted CT scan of head showed no acute findings CTA neck was negative CTA of head showed a potential thrombus in the left transverse dural venous sinus, with recommendation to consider MRI/MRV CT venogram showed lobular filling defects within the bilateral transverse dural venous sinuses that are consistent with arachnoid granulations they were present on the prior contrast-enhanced head CT of 03/03/2021 MRI brain showed small punctate and small ischemic lesions on the left temporal/frontal region EEG was normal A1c 6.5 Triglyceride is 211 Cholesterol is 169 LDL is 90 HDL is 37 VLDL is 42 Patient is on pravastatin: She is agreeable to switching to rosuvastatin 20 mg daily Echo shows left ventricular systolic function is normal, EF is 65 to 70%, left ventricular wall motion is normal, mild concentric LVH, right ventricle is borderline dilated, right ventricular systolic function is normal, mild aortic regurgitation, mild to moderate mitral regurgitation. Right ventricular systolic pressure is normal Neurology saw the patient has recommended DAPT with initial loading with aspirin 325 mg daily and Plavix 300 mg daily and then continue aspirin 81 mg daily and Plavix 75 mg daily for 21 days and after that can continue single antiplatelet therapy (either aspirin or Plavix) Neurology has recommended permissive hypertension for the next 24 hours Continue telemetry monitoring: Patient will need MCOT (mobile cardiac outpatient telemetry) or ICM (insertable court monitor, e.g. LINQ) on discharge per neurology recommendations Tickborne illness panel was sent on admission: Results pending PT/OT/DRIER AND EVAPORATOR OPERATOR #SAI Baseline creatinine is around 0.94 Renal function improved with IV fluid hydration Hold spironolactone and furosemide in light of SAI and also allowing for permissive hypertension for another 24 hours Patient does not know why she is taking 2 different diuretics #New diagnosis of type 2 diabetes mellitus #Obesity, BMI of 36.6 A1c is 6.5 community nutrition educator consult Accu-Cheks before every meal and nightly sliding scale insulin coverage Lifestyle counseling regarding diet, exercise and weight loss provided Outpatient follow-up with PCP #Microscopic colitis #Iron deficiency anemia Outpatient transmission engineer is Dr. Solano Patient is on chronic budesonide 9 mg p.o. daily Outpatient follow-up with GI on discharge # Hypothyroidism TSH is 5.562 Free T4 0.78 Patient states she has been off levothyroxine for over 6 months due to side effect that she cannot recall She will follow-up with PCP to see if she needs to restart levothyroxine #Elevated troponin Slightly elevated at 16 on admission, repeat troponin was normal 2D echo does not show any wall motion abnormalities EKG without ischemic changes Patient without any chest pain or shortness of breath Likely demand ischemia from acute CVA CODE STATUS: Full code DVT prophylaxis: Start Lovenox 40 mg subcutaneous daily Discharge planning likely home tomorrow if medically stable based on PT/OT/DRIER AND EVAPORATOR OPERATOR recommendations Care plan discussed with patient, nursing staff Admission and Anticipated Discharge Date Admission Date: October 26, 2024 Subjective Patient seen and examined H&P reviewed Labs reviewed Radiology reviewed Telemetry monitoring reviewed Patient sitting in the chair, tolerating oral diet without any issues She is ambulating She worked with PT/OT and speech therapy and awaiting full recommendations Discussed diabetes Patient aware that she is prediabetic but did not realize her A1c had gone up She has been on budesonide orally for microscopic colitis for over a year She has been on the brat diet for a few months She denies any chest pain, shortness of breath, nausea, vomiting, diarrhea, abdominal pain Last bowel movement was 2 days ago Social history: Lives at home with her . Independent of ADLs. Drives Physical Exam Physical Exam: General: No acute distress Psych: Awake and alert HEENT: Anicteric sclera, moist oral mucosa CVS: Regular rate and rhythm Lungs: Bilateral air entry, no wheezing noted Abdomen: Soft, nontender, no rebound, no guarding Ext: No lower extremity edema, no calf tenderness Neuro: No focal motor deficits noted Results & Data Results & Data Vital Signs (Past 12 Hours) Vital Signs Temp Pulse Pulse Resp BP Pulse Ox O2 Del Method 10/27/24 11:55 36.5 C 68 18 152/92 H 96 Room Air 10/27/24 08:47 36.8 C 68 17 161/83 H 96 Room Air 10/27/24 07:41 69 10/27/24 02:25 36.7 C 61 16 126/75 93 Room Air 10/27/24 00:36 70 Laboratory Results Laboratory Results - last 24 hr 10/26/24 10/27/24 10/27/24 19:04 05:24 11:20 WBC 10.18 6.84 RBC 5.79 H 4.54 Hgb 14.2 11.2 L D Hct 45.2 35.4 L MCV 78.1 L 78.0 L MCH 24.5 L 24.7 L MCHC 31.4 L 31.6 L RDW Std Deviation 46.3 46.4 H RDW Coeff of Marie 17.2 H 16.4 H Plt Count 359 258 MPV 9.7 9.5 Immature Gran % (Auto) 0.7 0.4 Neut % (Auto) 66.0 60.0 Lymph % (Auto) 22.5 27.9 Coffee % (Auto) 8.8 9.8 Eos % (Auto) 1.1 1.0 Baso % (Auto) 0.9 0.9 Neut # (Auto) 6.72 H 4.10 Lymph # (Auto) 2.29 1.91 Coffee # (Auto) 0.90 H 0.67 H Eos # (Auto) 0.11 0.07 Baso # (Auto) 0.09 0.06 Immature Gran # (Auto) 0.07 0.03 Polychromasia 1+ PT 10.4 INR 1.0 APTT 25 PTT Ratio 0.9 Sodium 139 140 Potassium 3.4 L 3.9 Chloride 101 107 Carbon Dioxide 26 26 Anion Gap 12 H 7 BUN 21 18 Creatinine 1.25 H 0.87 D Est Cr Clr Drug Dosing 37.0 53.2 eGFR 44.67 69.01 BUN/Creatinine Ratio 16.8 20.7 H Glucose 124 H 93 POC Glucose 145 H Estimat Average Glucose 140 Hemoglobin A1c 6.5 H Calcium 10.1 8.8 Phosphorus 3.9 Magnesium 2.2 2.2 Total Bilirubin 0.6 AST 29 ALT 27 Alkaline Phosphatase 64 Troponin I High Sens 16.0 H 13.6 Total Protein 8.1 Albumin 5.2 H 3.8 Globulin 2.9 Albumin/Globulin Ratio 1.8 Triglycerides 211 H Cholesterol 169 LDL Cholesterol, Calc 90 VLDL Cholesterol, Calc 42 H HDL Cholesterol 37 Cholesterol/HDL Ratio 4.6 Anaplasma Smear See Comment A. phagocytophilum DNA Pending Babesia Smear See Comment Babesia microti DNA PCR Pending Lyme Disease Screen Negative Ehrlichia DNA (PCR) Pending Hepatitis C Ab Screen Negative Diagnostic Findings Head CT 10/26/24 18:48 CR Exam(s): CT HEAD Without Contrast EXAM: CT Head Without Intravenous Contrast CLINICAL HISTORY: Reason for exam: neuro deficit, acute stroke suspected. TECHNIQUE: Axial computed tomography images of the head/brain without intravenous contrast. CTDI is 36.31 mGy and DLP is 546.36 mGy-cm. Automated exposure control was utilized for the study. A dose lowering technique was utilized adhering to the principles of ALARA. COMPARISON: No relevant prior studies available. FINDINGS: Brain: atrophy and chronic microvascular ischemic changes. . No hemorrhage, extra-axial fluid collection, mass effect, or edema. Ventricles: Unremarkable. Bones/joints: Unremarkable. No fracture. Soft tissues: Unremarkable. Sinuses: No acute sinusitis. Mastoid air cells: Unremarkable as visualized. IMPRESSION: 1. No acute intracranial abnormality. Communications: Call Doctor Stroke Electronically signed by: Jamel Haynes MD 10/26/24 20:44 PM Head CTA 10/26/24 18:48 CR Exam(s): CTA HEAD With Contrast IV Amt: 119 ml optiray 320 EXAM: CT Angiography Head With Intravenous Contrast CLINICAL HISTORY: Reason for exam: neuro deficit, acute stroke suspected. TECHNIQUE: Axial computed tomographic angiography images of the head with intravenous contrast. CTDI is 12.87 mGy and DLP is 434.82 mGy-cm. Automated exposure control was utilized for the study. A dose lowering technique was utilized adhering to the principles of ALARA. MIP reconstructed images were created and reviewed. CONTRAST: Patient received 119 ml optiray 320 of IV contrast COMPARISON: No relevant prior studies available. FINDINGS: Right internal carotid artery: No acute findings. Intracranial segment is patent with no significant stenosis. No aneurysm. Right anterior cerebral artery: Unremarkable. No occlusion or significant stenosis. No aneurysm. Right middle cerebral artery: Unremarkable. No occlusion or significant stenosis. No aneurysm. Right posterior cerebral artery: Unremarkable. No occlusion or significant stenosis. No aneurysm. Right vertebral artery: Unremarkable as visualized. Left internal carotid artery: No acute findings. Intracranial segment is patent with no significant stenosis. No aneurysm. Left anterior cerebral artery: Unremarkable. No occlusion or significant stenosis. No aneurysm. Left middle cerebral artery: Unremarkable. No occlusion or significant stenosis. No aneurysm. Left posterior cerebral artery: Unremarkable. No occlusion or significant stenosis. No aneurysm. Left vertebral artery: Unremarkable as visualized. Basilar artery: Unremarkable. No occlusion or significant stenosis. No aneurysm. IMPRESSION: Normal head CTA. Communications: Call Doctor Stroke Electronically signed by: Jamel Haynes MD 10/26/24 20:46 PM Neck CTA 10/26/24 18:48 CR Exam(s): CTA NECK With Contrast IV Amt: 119 ml optiray 320 EXAM: CT Angiography Neck With Intravenous Contrast CLINICAL HISTORY: Reason for exam: neuro deficit, acute stroke suspected. TECHNIQUE: Routine carotid CT angiography protocol was performed with intravenous contrast. NASCET criteria using the distal ICAs for comparison were used for evaluation of stenoses. CTDI is 12.87 mGy and DLP is 434.82 mGy-cm. Automated exposure control was utilized for the study. A dose lowering technique was utilized adhering to the principles of ALARA. MIP reconstructed images were created and reviewed. CONTRAST: Patient received 119 ml optiray 320 of IV contrast COMPARISON: None. FINDINGS: VASCULATURE: Right common carotid artery: Unremarkable. No occlusion or significant stenosis. No dissection. Right internal carotid artery: Unremarkable. Extracranial segment is patent with no occlusion or significant stenosis. No dissection. Right vertebral artery: Unremarkable. No occlusion or significant stenosis. No dissection. Left common carotid artery: Unremarkable. No occlusion or significant stenosis. No dissection. Left internal carotid artery: Unremarkable. Extracranial segment is patent with no occlusion or significant stenosis. No dissection. Left vertebral artery: Unremarkable. No occlusion or significant stenosis. No dissection. NECK: Bones/joints: Unremarkable. No acute fracture. Soft tissues: Unremarkable. Lung apices: Clear. CAROTID STENOSIS REFERENCE USING NASCET CRITERIA: % ICA stenosis = (1 - narrowest ICA diameter/diameter of distal cervical ICA) x 100. Mild - <50% stenosis. Moderate - 50-69% stenosis. Severe - 70-94% stenosis. Near occlusion - 95-99% stenosis. Occluded - 100% stenosis. IMPRESSION: Negative CTA neck. Communications: Call Doctor Stroke Electronically signed by: Jamel Haynes MD 10/26/24 20:[address] 10/26/24 20:56 Exam(s): CTA HEAD EXAM: CT Venography Head With Intravenous Contrast CLINICAL HISTORY: Reason for exam: ? ctv. TECHNIQUE: Axial computed tomographic venography images of the head with intravenous contrast. CTDI is 43 mGy and DLP is 866.17 mGy-cm. Automated exposure control was utilized for the study. A dose lowering technique was utilized adhering to the principles of ALARA. MIP reconstructed images were created and reviewed. COMPARISON: Head CT 03/03/2021 and MRI 07/16/2023 FINDINGS: Superior sagittal sinus: Unremarkable. Patent. Straight sinus: Unremarkable. Patent. Transverse sinuses: Lobular filling defects within the bilateral transverse dural venous sinuses are consistent with arachnoid granulations and were present on the prior contrast-enhanced head CT 03/03/2021. Sigmoid sinuses: Unremarkable. Patent. Internal jugular veins: Unremarkable as visualized. Internal cerebral and cortical veins: Unremarkable as visualized. IMPRESSION: Lobular filling defects within the bilateral transverse dural venous sinuses are consistent with arachnoid granulations and were present on the prior contrast-enhanced head CT 03/03/2021. Electronically signed by: Jamel Haynes MD 10/26/24 21:42 PM Brain MRI 10/26/24 22:34 CR Exam(s): MRI HEAD Without Contrast EXAM: MR Head Without Intravenous Contrast CLINICAL HISTORY: Reason for exam: stroke-like symptoms. TECHNIQUE: Magnetic resonance images of the head/brain without intravenous contrast in multiple planes. COMPARISON: Prior head CT from October 26, 2024. FINDINGS: Brain: There is a tiny acute ischemic injury within the left temporal and frontal lobes in addition to the insular cortex without evidence of hemorrhagic transformation. Remote ischemic injury of the right cerebellum. Mild nonspecific white matter changes. The flow voids at the base the brain are intact. Ventricles: Unremarkable. No ventriculomegaly. Bones/joints: Unremarkable. No acute fracture. Sinuses: Unremarkable as visualized. No acute sinusitis. Mastoid air cells: Unremarkable as visualized. No mastoid effusion. Orbits: Bilateral lens replacements. IMPRESSION: Tiny acute ischemic injuries in the left temporal and frontal lobes in addition to the insular cortex without evidence of hemorrhagic transformation. Communications: Verify Receipt Electronically signed by: Jacquie Gillespie MD 10/27/24 03:19 AM PG Care Time/CCT Total # of Minutes Spent Total Time Spent with Patient: Total time spent is greater than 50% in coordination of care (as documented) at patient's floor/unit and/or counseling patient: Coding Level of Care Code 18969 SUB INP/OBS CARE 3/50MIN Diagnoses Acute CVA (cerebrovascular accident) I63.9 Hypertension I10 Acute kidney injury N17.9 Mixed hyperlipidemia E78.2 Type 2 diabetes mellitus E11.9 Microscopic colitis K52.839 Fe deficiency anemia D50.9 Hypothyroidism E03.9 Obesity (BMI 30-39.9) E66.9
[2024-10-27] MEDS: INSULIN ASPART PER UNIT CHARGE SC SCH (12:18)
--- NOTE | 2024-10-27 12:27 | Electrocardiogram Report ---
Test Reason : Blood Pressure : */* mmHG Vent. 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
[2024-10-27] MEDS: ENOXAPARIN INJ 40 MG/0.4 ML SYR SQ SCH (20:04)
[2024-10-27] MEDS: ROSUVASTATIN CALCIUM 20 MG TAB PO SCH (20:04)
[2024-10-28 07:59] LABS: Basophils # (auto) 0.04 K/uL (0.00-0.20); Basophils % (auto) 0.7 %; Eosinophils # (auto) 0.14 K/uL (0.00-0.50); Eosinophils % (auto) 2.4 %; Hematocrit (blood only) 35.3 % (37.0-47.0); Hemoglobin 11.1 g/dl (12.0-16.0); Immature Granulocytes # (auto) 0.03 K/uL (0.01-0.20); Immature Granulocytes % (auto) 0.5 %; Lymphocytes # (auto) 2.04 K/uL (1.20-3.40); Lymphocytes % (auto) 35.2 %; Mean Corpuscular Hemoglobin 24.7 pg (25.0-34.0); Mean Corpuscular Hgb Conc 31.4 g/dL (32.0-36.0); Mean Corpuscular Volume 78.4 fL (80.0-100.0); Mean Platelet Volume 9.4 fL (9.4-12.4); Monocytes # (auto) 0.57 K/uL (0.11-0.59); Monocytes % (auto) 9.8 %; Neutrophils # (auto) 2.97 K/uL (1.40-6.50); Neutrophils % (auto) 51.4 %; Platelet Count 218 K/uL (130-400); RDW Coefficient of Variation 16.6 % (11.5-14.5); RDW Standard Deviation 46.8 fL (36.4-46.3); White Blood Count 5.79 K/ul (4.8-10.8)
[2024-10-28 08:17] LABS: BUN Creatinine Ratio 21.1 (10-20); Calcium 8.9 mg/dl (8.6-10.3); Creatinine Clr Calc Pharmacy 50.6 ml/min; Magnesium 2.1 mg/dl (1.7-2.4); Potassium 3.8 mmol/L (3.5-5.1)
[2024-10-28] MEDS: CLOPIDOGREL BISULFATE 75 MG TAB PO SCH (09:50)
[2024-10-28] MEDS: POTASSIUM CHLORIDE CRTAB 20 MEQ TABCR PO STA (10:36)
[2024-10-28] MEDS: LORazepam 1 MG TAB PO PRN (10:36)
--- NOTE | 2024-10-28 11:05 | Hospitalist Progress Note ---
Date of Service October 28, 2024 Assessment & Plan (1) Acute CVA (cerebrovascular accident): (2) Hypertension: (3) Acute kidney injury: (4) Mixed hyperlipidemia: (5) Type 2 diabetes mellitus: (6) Microscopic colitis: (7) Fe deficiency anemia: (8) Hypothyroidism: (9) Obesity (BMI 30-39.9): Plan 78-year-old female with past medical history of prediabetes, hypothyroidism not on levothyroxine for past 6 months, microscopic colitis on chronic budesonide, hyperlipidemia presented to the ED with episode of expressive aphasia with word finding difficulty and slurred speech which lasted for 1-1/2 hours at 9 PM on the evening of 10/15/2024. #Acute small ischemic stroke on left temporal/frontal area #Essential hypertension #Hyperlipidemia #Mild to moderate mitral regurgitation #Bilateral dural venous sinus toxic granulations: Chronic Strokelike symptoms/confusion/slurred speech/expressive aphasia- Symptoms lasted for about 1.5 hours about 24 hours prior to presentation to the ED, and in no longer present does have a video on his phone with demonstration of symptoms as noted CT scan of head showed no acute findings CTA neck was negative CTA of head showed a potential thrombus in the left transverse dural venous sinus, with recommendation to consider MRI/MRV CT venogram showed lobular filling defects within the bilateral transverse dural venous sinuses that are consistent with arachnoid granulations they were present on the prior contrast-enhanced head CT of 03/03/2021 MRI brain showed small punctate and small ischemic lesions on the left temporal/frontal region EEG was normal A1c 6.5 Triglyceride is 211 Cholesterol is 169 LDL is 90 HDL is 37 VLDL is 42 Patient is on pravastatin: She is agreeable to switching to rosuvastatin 20 mg daily Echo shows left ventricular systolic function is normal, EF is 65 to 70%, left ventricular wall motion is normal, mild concentric LVH, right ventricle is borderline dilated, right ventricular systolic function is normal, mild aortic regurgitation, mild to moderate mitral regurgitation. Right ventricular systolic pressure is normal Neurology saw the patient has recommended DAPT with initial loading with aspirin 325 mg daily and Plavix 300 mg daily and then continue aspirin 81 mg daily and Plavix 75 mg daily for 21 days and after that can continue single antiplatelet therapy (either aspirin or Plavix) Neurology has recommended permissive hypertension for the next 24 hours Continue telemetry monitoring: Patient will need MCOT (mobile cardiac outpatient telemetry) or ICM (insertable school bus monitor, e.g. LINQ) on discharge per neurology recommendations Tickborne illness panel was sent on admission: Results pending PT/OT/PLACE CHANGE ROOF BOLTER #SAI Baseline creatinine is around 0.94 Renal function improved with IV fluid hydration Hold spironolactone and furosemide in light of SAI and also allowing for permissive hypertension for another 24 hours Patient does not know why she is taking 2 different diuretics #New diagnosis of type 2 diabetes mellitus #Obesity, BMI of 36.6 A1c is 6.5 personal development educator consult Accu-Cheks before every meal and nightly sliding scale insulin coverage Lifestyle counseling regarding diet, exercise and weight loss provided Outpatient follow-up with PCP #Microscopic colitis #Iron deficiency anemia Outpatient dry talc racker is Dr. Solano Patient is on chronic budesonide 9 mg p.o. daily Outpatient follow-up with GI on discharge # Hypothyroidism TSH is 5.562 Free T4 0.78 Patient states she has been off levothyroxine for over 6 months due to side effect that she cannot recall She will follow-up with PCP to see if she needs to restart levothyroxine #Elevated troponin Slightly elevated at 16 on admission, repeat troponin was normal 2D echo does not show any wall motion abnormalities EKG without ischemic changes Patient without any chest pain or shortness of breath Likely demand ischemia from acute CVA CODE STATUS: Full code DVT prophylaxis: Lovenox 40 mg subcutaneous daily Discharge planning likely home tomorrow if medically stable Care plan discussed with patient, nursing staff Admission and Anticipated Discharge Date Admission Date: October 27, 2024 Subjective Patient seen and examined Labs reviewed Has a headache today and was anxious earlier. She was concerned about taking Ativan which she takes twice a day at home and has not used it since admission Feels generally unwell but is able to talk in full sentences without any neurological deficits Physical Exam Physical Exam: General: No acute distress Psych: Awake and alert, oriented to place person and time HEENT: Anicteric sclera, moist oral mucosa CVS: Regular rate and rhythm Lungs: Bilateral air entry, no wheezing noted Abdomen: Soft, nontender, no rebound, no guarding Ext: No lower extremity edema, no calf tenderness Neuro: No focal motor deficits noted Results & Data Results & Data Vital Signs (Past 12 Hours) Vital Signs Temp Pulse Pulse Resp BP Pulse Ox Pulse Ox 10/28/24 07:44 61 10/28/24 07:30 36.6 C 68 16 159/72 H 98 10/28/24 03:23 36.5 C 68 18 164/78 H 92 10/27/24 23:41 96 10/27/24 23:26 36.8 C 67 18 162/92 H 96 10/27/24 23:23 66 O2 Del Method O2 Del Method 10/28/24 07:44 10/28/24 07:30 Room Air 10/28/24 03:23 Room Air 10/27/24 23:41 Room Air 10/27/24 23:26 Room Air 10/27/24 23:23 Laboratory Results Laboratory Results - last 24 hr 10/27/24 10/27/24 10/27/24 05:24 11:20 16:27 WBC RBC Hgb Hct MCV MCH MCHC RDW Std Deviation RDW Coeff of Marie Plt Count MPV Immature Gran % (Auto) Neut % (Auto) Lymph % (Auto) [place] % (Auto) Eos % (Auto) Baso % (Auto) Neut # (Auto) Lymph # (Auto) [place] # (Auto) Eos # (Auto) Baso # (Auto) Immature Gran # (Auto) Sodium Potassium Chloride Carbon Dioxide Anion Gap BUN Creatinine Est Cr Clr Drug Dosing eGFR BUN/Creatinine Ratio Glucose POC Glucose 145 H 139 H Calcium Magnesium Vitamin B12 488 10/27/24 10/28/24 10/28/24 19:41 07:22 07:49 WBC 5.79 RBC 4.50 Hgb 11.1 L Hct 35.3 L MCV 78.4 L MCH 24.7 L MCHC 31.4 L RDW Std Deviation 46.8 H RDW Coeff of Marie 16.6 H Plt Count 218 MPV 9.4 Immature Gran % (Auto) 0.5 Neut % (Auto) 51.4 Lymph % (Auto) 35.2 [place] % (Auto) 9.8 Eos % (Auto) 2.4 Baso % (Auto) 0.7 Neut # (Auto) 2.97 Lymph # (Auto) 2.04 [place] # (Auto) 0.57 Eos # (Auto) 0.14 Baso # (Auto) 0.04 Immature Gran # (Auto) 0.03 Sodium 141 Potassium 3.8 Chloride 107 Carbon Dioxide 27 Anion Gap 7 BUN 19 Creatinine 0.90 Est Cr Clr Drug Dosing 50.6 eGFR 66.26 BUN/Creatinine Ratio 21.1 H Glucose 98 POC Glucose 134 H 85 Calcium 8.9 Magnesium 2.1 Vitamin B12 PG Care Time/CCT Total # of Minutes Spent Total Time Spent with Patient: Total time spent is greater than 50% in coordination of care (as documented) at patient's floor/unit and/or counseling patient: Coding Level of Care Code 87079 SUB INP/OBS CARE 2/35MIN Diagnoses Acute CVA (cerebrovascular accident) I63.9 Hypertension I10 Acute kidney injury N17.9 Mixed hyperlipidemia E78.2 Type 2 diabetes mellitus E11.9 Microscopic colitis K52.839 Fe deficiency anemia D50.9 Hypothyroidism E03.9 Obesity (BMI 30-39.9) E66.9
[2024-10-28] MEDS ORDERED: oxyCODONE HCL IR 5 MG TAB (IMMEDIATE RELEASE) PO PRN (11:06)
[2024-10-28] MEDS: POLYETHYLENE (MIRALAX) 17 GM PACK PO SCH (11:48)
[2024-10-28] MEDS: SENNA 8.6 MG TAB PO ONE (12:18)
[2024-10-28] MEDS: ACETAMINOPHEN 500 MG TAB PO PRN (16:11)
[2024-10-29 06:55] LABS: Basophils # (auto) 0.05 K/uL (0.00-0.20); Basophils % (auto) 0.8 %; Eosinophils # (auto) 0.13 K/uL (0.00-0.50); Hematocrit (blood only) 35.4 % (37.0-47.0); Hemoglobin 11.4 g/dl (12.0-16.0); Immature Granulocytes # (auto) 0.04 K/uL (0.01-0.20); Immature Granulocytes % (auto) 0.6 %; Lymphocytes # (auto) 2.45 K/uL (1.20-3.40); Lymphocytes % (auto) 38.3 %; Mean Corpuscular Hemoglobin 25.1 pg (25.0-34.0); Mean Corpuscular Hgb Conc 32.2 g/dL (32.0-36.0); Mean Corpuscular Volume 77.8 fL (80.0-100.0); Mean Platelet Volume 9.8 fL (9.4-12.4); Monocytes # (auto) 0.63 K/uL (0.11-0.59); Monocytes % (auto) 9.9 %; Neutrophils # (auto) 3.09 K/uL (1.40-6.50); Neutrophils % (auto) 48.4 %; Platelet Count 236 K/uL (130-400); RDW Coefficient of Variation 16.5 % (11.5-14.5); RDW Standard Deviation 46.4 fL (36.4-46.3); Red Blood Count 4.55 M/uL (4.20-5.40); White Blood Count 6.39 K/ul (4.8-10.8)
[2024-10-29 07:07] LABS: BUN Creatinine Ratio 22.6 (10-20); Creatinine Clr Calc Pharmacy 54.7 ml/min; Magnesium 2.2 mg/dl (1.7-2.4); Potassium 3.9 mmol/L (3.5-5.1)
[2024-10-29] MEDS: LOSARTAN POTASSIUM 25 MG TAB PO SCH (09:40)
[2024-10-29] MEDS: ONDANSETRON 4 MG OD TAB PO PRN (09:41)
--- NOTE | 2024-10-29 10:29 | Hospitalist Progress Note ---
Date of Service October 29, 2024 Assessment & Plan (1) Acute CVA (cerebrovascular accident): (2) Hypertension: (3) Acute kidney injury: (4) Mixed hyperlipidemia: (5) Type 2 diabetes mellitus: (6) Microscopic colitis: (7) Fe deficiency anemia: (8) Hypothyroidism: (9) Obesity (BMI 30-39.9): Plan 78-year-old female with past medical history of prediabetes, hypothyroidism not on levothyroxine for past 6 months, microscopic colitis on chronic budesonide, hyperlipidemia presented to the ED with episode of expressive aphasia with word finding difficulty and slurred speech which lasted for 1-1/2 hours at 9 PM on the evening of 10/15/2024. #Acute small ischemic stroke on left temporal/frontal area #Essential hypertension #Hyperlipidemia #Mild to moderate mitral regurgitation #Bilateral dural venous sinus toxic granulations: Chronic Strokelike symptoms/confusion/slurred speech/expressive aphasia- Symptoms lasted for about 1.5 hours about 24 hours prior to presentation to the ED, and in no longer present does have a video on his phone with demonstration of symptoms as noted CT scan of head showed no acute findings CTA neck was negative CTA of head showed a potential thrombus in the left transverse dural venous sinus, with recommendation to consider MRI/MRV CT venogram showed lobular filling defects within the bilateral transverse dural venous sinuses that are consistent with arachnoid granulations they were present on the prior contrast-enhanced head CT of 03/03/2021 MRI brain showed small punctate and small ischemic lesions on the left temporal/frontal region EEG was normal A1c 6.5 Triglyceride is 211 Cholesterol is 169 LDL is 90 HDL is 37 VLDL is 42 Patient is on pravastatin: She is agreeable to switching to rosuvastatin 20 mg daily Echo shows left ventricular systolic function is normal, EF is 65 to 70%, left ventricular wall motion is normal, mild concentric LVH, right ventricle is borderline dilated, right ventricular systolic function is normal, mild aortic regurgitation, mild to moderate mitral regurgitation. Right ventricular systolic pressure is normal Neurology saw the patient has recommended DAPT with initial loading with aspirin 325 mg daily and Plavix 300 mg daily and then continue aspirin 81 mg daily and Plavix 75 mg daily for 21 days and after that can continue single antiplatelet therapy (either aspirin or Plavix) Neurology has recommended permissive hypertension for the next 24 hours Continue telemetry monitoring: Patient will need MCOT (mobile cardiac outpatient telemetry) or ICM (insertable blocker hand, e.g. LINQ) on discharge per neurology recommendations Tickborne illness panel was sent on admission: Results pending Start losartan 25 mg p.o. 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 Solano Patient is on chronic budesonide 9 mg p.o. daily Outpatient follow-up with GI on discharge # Hypothyroidism TSH is 5.562 Free T4 0.78 Patient states she has been off levothyroxine for over 6 months due to side effect that she cannot recall She will follow-up with PCP to see if she needs to restart levothyroxine #Elevated troponin Slightly elevated at 16 on admission, repeat troponin was normal 2D echo does not show any wall motion abnormalities EKG without ischemic changes Patient without any chest pain or shortness of breath Likely demand ischemia from acute CVA CODE STATUS: Full code DVT prophylaxis: Lovenox 40 mg subcutaneous daily Discharge planning likely home tomorrow if medically stable Care plan discussed with patient, nursing staff and updated on the phone in patient's room Admission and Anticipated Discharge Date Admission Date: October 27, 2024 Subjective Patient seen and examined She is very tearful and anxious this morning and feels nauseous and worried about going home Blood pressure is elevated She denies any headache, dizziness, lightheadedness, chest pain, shortness of breath She feels like she is going to throw up but has not thrown up She is taken a Zofran and hoping able work Physical Exam Physical Exam: General: No acute distress, anxious appearing Psych: Awake and alert, oriented to place person and time HEENT: Anicteric sclera, moist oral mucosa CVS: Regular rate and rhythm Lungs: Bilateral air entry, no wheezing noted Abdomen: Soft, nontender, no rebound, no guarding Ext: No lower extremity edema, no calf tenderness Neuro: No focal motor deficits noted Results & Data Results & Data Vital Signs (Past 12 Hours) Vital Signs Temp Pulse Pulse Resp BP Pulse Ox Pulse Ox 10/29/24 07:29 36.5 C 79 16 150/96 H 99 10/29/24 03:33 36.4 C L 66 18 155/93 H 98 10/28/24 23:33 36.9 C 73 19 125/75 96 10/28/24 23:22 84 10/28/24 23:00 97 O2 Del Method O2 Del Method 10/29/24 07:29 Room Air 10/29/24 03:33 Room Air 10/28/24 23:33 Room Air 10/28/24 23:22 10/28/24 23:00 Room Air Laboratory Results Laboratory Results - last 24 hr 10/28/24 10/28/24 10/28/24 11:26 16:44 19:43 WBC RBC Hgb Hct MCV MCH MCHC RDW Std Deviation RDW Coeff of Marie Plt Count MPV Immature Gran % (Auto) Neut % (Auto) Lymph % (Auto) Emmet % (Auto) Eos % (Auto) Baso % (Auto) Neut # (Auto) Lymph # (Auto) Emmet # (Auto) Eos # (Auto) Baso # (Auto) Immature Gran # (Auto) Sodium Potassium Chloride Carbon Dioxide Anion Gap BUN Creatinine Est Cr Clr Drug Dosing eGFR BUN/Creatinine Ratio Glucose POC Glucose 116 H 136 H 172 H Calcium Magnesium 10/29/24 10/29/24 06:13 07:20 WBC 6.39 RBC 4.55 Hgb 11.4 L Hct 35.4 L MCV 77.8 L MCH 25.1 MCHC 32.2 RDW Std Deviation 46.4 H RDW Coeff of Marie 16.5 H Plt Count 236 MPV 9.8 Immature Gran % (Auto) 0.6 Neut % (Auto) 48.4 Lymph % (Auto) 38.3 Emmet % (Auto) 9.9 Eos % (Auto) 2.0 Baso % (Auto) 0.8 Neut # (Auto) 3.09 Lymph # (Auto) 2.45 Emmet # (Auto) 0.63 H Eos # (Auto) 0.13 Baso # (Auto) 0.05 Immature Gran # (Auto) 0.04 Sodium 141 Potassium 3.9 Chloride 109 H Carbon Dioxide 26 Anion Gap 6 BUN 19 Creatinine 0.84 Est Cr Clr Drug Dosing 54.7 eGFR 71.97 BUN/Creatinine Ratio 22.6 H Glucose 89 POC Glucose 122 H Calcium 9.0 Magnesium 2.2 PG Care Time/CCT Total # of Minutes Spent Total Time Spent with Patient: Total time spent is greater than 50% in coordination of care (as documented) at patient's floor/unit and/or counseling patient: Coding Level of Care Code 85956 SUB INP/OBS CARE 2/35MIN Diagnoses Acute CVA (cerebrovascular accident) I63.9 Hypertension I10 Acute kidney injury N17.9 Mixed hyperlipidemia E78.2 Type 2 diabetes mellitus E11.9 Microscopic colitis K52.839 Fe deficiency anemia D50.9 Hypothyroidism E03.9 Obesity (BMI 30-39.9) E66.9
[2024-10-29] MEDS: LORazepam 2 MG/1 ML VIAL IV STA (11:11)
[2024-10-29 22:47] VITALS: O2SAT 95
[2024-10-30] MEDS: guaiFENesin/DEXTROM SYRUP 100MG/10MG 5ML UDC PO ONE (06:29)
[2024-10-30 08:16] LABS: BUN Creatinine Ratio 22.2 (10-20); Calcium 9.2 mg/dl (8.6-10.3); Creatinine Clr Calc Pharmacy 51.5 ml/min; Magnesium 2.1 mg/dl (1.7-2.4); Potassium 3.9 mmol/L (3.5-5.1)
--- NOTE | 2024-10-30 09:29 | Hospitalist Progress Note ---
Date of Service October 30, 2024 Assessment & Plan (1) Acute CVA (cerebrovascular accident): (2) Hypertension: (3) Acute kidney injury: (4) Mixed hyperlipidemia: (5) Type 2 diabetes mellitus: (6) Microscopic colitis: (7) Fe deficiency anemia: (8) Hypothyroidism: (9) Obesity (BMI 30-39.9): Plan 78-year-old female with past medical history of prediabetes, hypothyroidism not on levothyroxine for past 6 months, microscopic colitis on chronic budesonide, hyperlipidemia presented to the ED with episode of expressive aphasia with word finding difficulty and slurred speech which lasted for 1-1/2 hours at 9 PM on the evening of 10/15/2024. #Acute small ischemic stroke on left temporal/frontal area #Essential hypertension #Hyperlipidemia #Mild to moderate mitral regurgitation #Bilateral dural venous sinus toxic granulations: Chronic Strokelike symptoms/confusion/slurred speech/expressive aphasia- Symptoms lasted for about 1.5 hours about 24 hours prior to presentation to the ED, and in no longer present does have a video on his phone with demonstration of symptoms as noted CT scan of head showed no acute findings CTA neck was negative CTA of head showed a potential thrombus in the left transverse dural venous sinus, with recommendation to consider MRI/MRV CT venogram showed lobular filling defects within the bilateral transverse dural venous sinuses that are consistent with arachnoid granulations they were present on the prior contrast-enhanced head CT of 03/03/2021 MRI brain showed small punctate and small ischemic lesions on the left temporal/frontal region EEG was normal A1c 6.5 Triglyceride is 211 Cholesterol is 169 LDL is 90 HDL is 37 VLDL is 42 Patient is on pravastatin: She is agreeable to switching to rosuvastatin 20 mg daily Echo shows left ventricular systolic function is normal, EF is 65 to 70%, left ventricular wall motion is normal, mild concentric LVH, right ventricle is borderline dilated, right ventricular systolic function is normal, mild aortic regurgitation, mild to moderate mitral regurgitation. Right ventricular systolic pressure is normal Neurology saw the patient has recommended DAPT with initial loading with aspirin 325 mg daily and Plavix 300 mg daily and then continue aspirin 81 mg daily and Plavix 75 mg daily for 21 days and after that can continue single antiplatelet therapy (either aspirin or Plavix) Neurology has recommended permissive hypertension for the next 24 hours Continue telemetry monitoring: Patient will need MCOT (mobile cardiac outpatient telemetry) or ICM (insertable collections curator, e.g. LINQ) on discharge per neurology recommendations Tickborne illness panel was sent on admission: Results pending Start losartan 25 mg p.o. 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 Solano Patient is on chronic budesonide 9 mg p.o. daily Outpatient follow-up with GI on discharge # Hypothyroidism TSH is 5.562 Free T4 0.78 Patient states she has been off levothyroxine for over 6 months due to side effect that she cannot recall She will follow-up with PCP to see if she needs to restart levothyroxine #Elevated troponin Slightly elevated at 16 on admission, repeat troponin was normal 2D echo does not show any wall motion abnormalities EKG without ischemic changes Patient without any chest pain or shortness of breath Likely demand ischemia from acute CVA CODE STATUS: Full code DVT prophylaxis: Lovenox 40 mg subcutaneous daily Discharge planning likely home tomorrow if medically stable Care plan discussed with patient, nursing staff and updated on the phone in patient's room Admission and Anticipated Discharge Date Admission Date: October 27, 2024 Physical Exam Physical Exam: General: No acute distress, anxious appearing Psych: Awake and alert, oriented to place person and time HEENT: Anicteric sclera, moist oral mucosa CVS: Regular rate and rhythm Lungs: Bilateral air entry, no wheezing noted Abdomen: Soft, nontender, no rebound, no guarding Ext: No lower extremity edema, no calf tenderness Neuro: No focal motor deficits noted Results & Data Results & Data Vital Signs (Past 12 Hours) Vital Signs Temp Pulse Pulse Resp BP Pulse Ox Pulse Ox 10/30/24 02:39 37 C 58 L 18 133/81 95 10/30/24 00:16 73 10/29/24 23:00 95 12/15/24 22:47 37.3 C 78 18 125/70 95 O2 Del Method O2 Del Method 10/30/24 02:39 Room Air 10/30/24 00:16 10/29/24 23:00 Room Air 10/29/24 22:47 Room Air Laboratory Results Laboratory Results - last 24 hr 10/29/24 10/29/24 10/29/24 11:20 16:18 20:05 Sodium Potassium Chloride Carbon Dioxide Anion Gap BUN Creatinine Est Cr Clr Drug Dosing eGFR BUN/Creatinine Ratio Glucose POC Glucose 94 109 H 112 H Calcium Magnesium 10/30/24 10/30/24 07:23 07:33 Sodium 138 Potassium 3.9 Chloride 106 Carbon Dioxide 25 Anion Gap 7 BUN 20 Creatinine 0.90 Est Cr Clr Drug Dosing 51.5 eGFR 66.26 BUN/Creatinine Ratio 22.2 H Glucose 114 H POC Glucose 117 H Calcium 9.2 Magnesium 2.1 PG Care Time/CCT Total # of Minutes Spent Total Time Spent with Patient: Total time spent is greater than 50% in coordination of care (as documented) at patient's floor/unit and/or counseling patient: Coding Diagnoses Acute CVA (cerebrovascular accident) I63.9 Hypertension I10 Acute kidney injury N17.9 Mixed hyperlipidemia E78.2 Type 2 diabetes mellitus E11.9 Microscopic colitis K52.839 Fe deficiency anemia D50.9 Hypothyroidism E03.9 Obesity (BMI 30-39.9) E66.9
[2024-10-30] MEDS: LOSARTAN POTASSIUM 25 MG TAB PO STA (10:38)
--- NOTE | 2024-10-30 11:18 | CT Scan Report ---
CT head/brain wo con CLINICAL HISTORY: 78 years-old Female with CVA. Acute stroke like symptoms TECHNIQUE: Multiple axial CT images of the head were obtained without contrast. A dose lowering tech nique was utilized adhering to the principles of ALARA. CT DOSE: 625.8 mGy.cm COMPARISON: Head CT studies 10/26/2024, 07/03/2024, brain MRI 12/27/2023. FINDINGS: No acute intracranial hemorrhage, midline shift, intracranial mass, hydrocephalus, territorial ischem ia or abnormal extra-axial collection. Involutional changes with white matter hypodensities suggestiv e of chronic microvascular ischemic disease. The tiny subcentimeter acute infarcts in the left cerebr al hemisphere seen by MR are not appreciated by CT. The calvarium is intact. Mild mucoperiosteal thickening of the maxillary sinuses. Chronic appearing bilateral nasal bone fractures. Mastoid air cells are clear. IMPRESSION: 1. No acute intracranial hemorrhage, midline shift or acute territorial infarct. 2. The subcentimeter acute infarcts in the left cerebral hemisphere seen on the 10/26/2024 brain MRI are not visualized by CT. 3. Involutional changes with chronic microvascular ischemic disease. ACT 112: Negative or not required by law. The above report was generated using voice recognition software. It may contain grammatical, syntax o r spelling errors. Electronically signed by: Santy Correa M.D. 10/30/2024 11:16 AM
[2024-10-30] MEDS: PROMETHAZINE HCL 25 MG TAB PO PRN (11:29)
[2024-10-30 11:47] VITALS: PULSE 60; RESP 16; TEMP 98.2
[2024-10-30] MEDS: hydroCHLOROthiazide 25 MG TAB PO STA (13:26)
--- NOTE | 2024-10-30 16:01 | Discharge Summary ---
Discharge Summary Date of Service October 30, 2024 Principal Dx & Hospital Course #1 = Principal Diagnosis (1) Acute CVA (cerebrovascular accident): (2) Hypertension: (3) Acute kidney injury: (4) Mixed hyperlipidemia: (5) Type 2 diabetes mellitus: (6) Microscopic colitis: (7) Fe deficiency anemia: (8) Hypothyroidism: (9) Obesity (BMI 30-39.9): Plan 78-year-old female with past medical history of prediabetes, hypothyroidism not on levothyroxine for past 6 months, microscopic colitis on chronic budesonide, hyperlipidemia presented to the ED with episode of expressive aphasia with word finding difficulty and slurred speech which lasted for 1-1/2 hours at 9 PM on the evening of 10/15/2024. #Acute small ischemic stroke on left temporal/frontal area #Essential hypertension #Hyperlipidemia #Mild to moderate mitral regurgitation #Bilateral dural venous sinus toxic granulations: Chronic Strokelike symptoms/confusion/slurred speech/expressive aphasia- Symptoms lasted for about 1.5 hours about 24 hours prior to presentation to the ED, and in no longer present does have a video on his phone with demonstration of symptoms as noted CT scan of head showed no acute findings CTA neck was negative CTA of head showed a potential thrombus in the left transverse dural venous sinus, with recommendation to consider MRI/MRV CT venogram showed lobular filling defects within the bilateral transverse dural venous sinuses that are consistent with arachnoid granulations they were present on the prior contrast-enhanced head CT of 03/03/2021 MRI brain showed small punctate and small ischemic lesions on the left temporal/frontal region EEG was normal A1c 6.5 Triglyceride is 211 Cholesterol is 169 LDL is 90 HDL is 37 VLDL is 42 Patient is on pravastatin: She is agreeable to switching to rosuvastatin 20 mg daily Echo shows left ventricular systolic function is normal, EF is 65 to 70%, left ventricular wall motion is normal, mild concentric LVH, right ventricle is borderline dilated, right ventricular systolic function is normal, mild aortic regurgitation, mild to moderate mitral regurgitation. Right ventricular systolic pressure is normal Neurology saw the patient has recommended DAPT with initial loading with aspirin 325 mg daily and Plavix 300 mg daily and then continue aspirin 81 mg daily and Plavix 75 mg daily for 21 days and after that can continue single antiplatelet therapy (either aspirin or Plavix): Patient advised to continue with aspirin Plavix for total 21 days and then switch to aspirin 81 mg daily indefinitely and follow-up with neurology and PCP as outpatient Continue telemetry monitoring: Patient will need MCOT (mobile cardiac outpatient telemetry) or ICM (insertable court recording monitor, e.g. LINQ) on discharge per neurology recommendations Tickborne illness panel was sent on admission: Results pending: Patient advised to follow-up with PCP for results Increase losartan to 50 mg p.o. daily and add hydrochlorothiazide 25 mg p.o. daily for better blood pressure control Patient had a headache this morning: Repeat CT of the head did not show any acute abnormalities Outpatient follow-up with PCP for blood pressure monitoring #SAI: Resolved Baseline creatinine is around 0.94 Renal function improved with IV fluid hydration Unclear why patient is on spironolactone and furosemide at such high doses: Echo does not show evidence of heart failure Renal function has normalized at this point Started on hydrochlorothiazide 25 mg daily for better blood pressure control Outpatient follow with PCP for monitoring of renal function and electrolytes #New diagnosis of type 2 diabetes mellitus #Obesity, BMI of 36.6 A1c is 6.5 Lifestyle counseling regarding diet, exercise and weight loss provided Outpatient follow-up with PCP #Microscopic colitis #Iron deficiency anemia Outpatient family medicine physician assistant is Dr. Solano Patient is on chronic budesonide 9 mg p.o. daily Outpatient follow-up with GI on discharge # Hypothyroidism TSH is 5.562 Free T4 0.78 Patient states she has been off levothyroxine for over 6 months due to side effect that she cannot recall She will follow-up with PCP to see if she needs to restart levothyroxine #Elevated troponin Slightly elevated at 16 on admission, repeat troponin was normal 2D echo does not show any wall motion abnormalities EKG without ischemic changes Patient without any chest pain or shortness of breath Likely demand ischemia from acute CVA Patient seen and examined. I have gone over the discharge care plan, medications, follow-up with the patient in great detail and answered all her questions. I have also gone over the discharge care plan with patient's on the phone with patient's permission and answered all his questions. This discharge took greater than 30 minutes to coordinate Notes For Next Care Provider PCP: Kindly please see discharge instructions given to patient. She needs repeat blood test and tickborne panel results followed. She will also need b lood pressure monitoring Admission HPI Per Admitting Provider The patient is a 78-year-old female with a past medical history including SNHL bilaterally, multiple right-sided rib fractures 07/03/24, bilateral lower extremity edema, microscopic colitis on budesonide, prediabetes, hypertension, hyperlipidemia, anxiety disorder, GERD and hypothyroidism. The patient presents to the emergency department with acute onset of symptoms as noted above. However, patient does report that she has had a few weeks of loose stools when her budesonide was decreased from 3 to 2 tablets, and when she resumed her dosing back up to 3 tablets, the microscopic colitis became under better control again. She did continue her furosemide and spironolactone during this interval, and on a clinical examination appears moderately dehydrated with acute kidney injury and hypokalemia. Discharge Exam General: No acute distress, anxious appearing Psych: Awake and alert, oriented to place person and time HEENT: Anicteric sclera, moist oral mucosa CVS: Regular rate and rhythm Lungs: Bilateral air entry, no wheezing noted Abdomen: Soft, nontender, no rebound, no guarding Ext: No lower extremity edema, no calf tenderness Neuro: No focal motor deficits noted Discharge Plan Discharge Items Patient Disposition: Home - Self-Care Reason For Visit: STROKE-LIKE SYMPTOMS Discharge Diagnosis: #Acute small ischemic stroke on left temporal/frontal area #Essential hypertension #Hyperlipidemia #Mild to moderate mitral regurgitation #Bilateral dural venous sinus toxic granulations: Chronic #New diagnosis of type 2 diabetes mellitus #Obesity, BMI of 36.6 #Microscopic colitis #Iron deficiency anemia # Hypothyroidism Activity: As commented below Activity Comment: As tolerated with assistance Driving/Machine Use: No driving until cleared by neurology Non-emergency contact: Primary Care Provider Call non-emergency contact if: you have any medication questions, your symptoms worsen, your pain is worsening and you have a fever Follow-up/Referrals: Ori Wyatt MD [Physician] - 10/31/24 4:00 pm (Scheduled with Dr. Encarnacion.) Sonido Domingo MD [Physician] - Pro,Preston Rivero MD [Primary Care Provider] - 11/03/24 10:00 am (Scheduled with REJI Thomas on 11/03/24 at 10:00 am) Tabitha Solano MD [Physician] - Diet: Carb Consistent or DM2 and Heart Healthy Addtl Attending Provider Instructions: DISCHARGE INSTRUCTION TO PATIENT/FAMILY: Follow-up with your primary care provider within 1 week regarding: Posthospital discharge, medication review, medication refills and follow-up on all your medical problems, new diagnosis of type 2 diabetes mellitus, pending test results Please take all your discharge medications, discharge information and discharge instructions to all your doctors appointments. Avoid all NSAIDs including ibuprofen, Motrin, Advil, Aleve, naproxen, meloxicam, Toradol, diclofenac Following test results are still pending: Tickborne panel: Anaplasma, Babesia, Ehrlichia PCR: Please follow-up with your primary care provider within 1 week to get results of these pending tests Follow-up with your primary care provider for discussion about resuming levothyroxine. Your TSH was elevated You need a court recording monitor on discharge per neurology recommendations since you had a stroke to assess for any arrhythmias: Please follow-up with cardiology (Dr. Wyatt) to arrange court recording monitor You have been diagnosed with a stroke: you have to be on Aspirin 81 mg daily and Plavix 75 mg daily for a total of 21 days until 11/17/2024 and then you will stay on Aspirin 81 mg daily indefinitely Please follow-up with psychiatrist as outpatient regarding chronic benzodiazepine use and anxiety. Labs through PCP in 1 week: CBC, CMP, MG, VITAMIN D Pending Studies at Discharge: Yes (Tickborne panel: Anaplasma, Babesia, Ehrlichia PCR) Studies:: Tickborne panel: Anaplasma, Babesia, Ehrlichia PCR Stand-Alone Forms: [facility] [employer], Smoking Cessation, Medications to Prevent Stroke Medications and DC Order Prescriptions: New clopidogrel 75 mg Tablet 75 mg PO QAM Qty: 18 0RF Rx Instructions: take until 11/17/24 losartan 50 mg Tablet 50 mg PO QAM Qty: 30 0RF rosuvastatin 20 mg Tablet 20 mg PO HS Qty: 30 0RF aspirin 81 mg Tablet,Delayed Release (Dr/Ec) 81 mg PO QAM Qty: 30 0RF acetaminophen [Tylenol Extra Strength] 500 mg Tablet 1,000 mg PO TID PRN (Reason: pain) Qty: 10 0RF hydrochlorothiazide 25 mg tablet 25 mg PO DAILY Qty: 30 0RF Continued promethazine 25 mg tablet 25 mg PO QID PRN (Reason: nausea and vomiting) Qty: 90 0RF hydroxyzine HCl 25 mg tablet 25 mg PO BID PRN (Reason: itching) Qty: 90 1RF lorazepam 2 mg tablet 2 mg PO TID PRN (Reason: anxiety) Qty: 90 0RF Rx Instructions: monthly (when due) zolpidem 10 mg tablet 10 mg PO QPM Qty: 30 0RF Rx Instructions: Supervising physician Preston Winters MD LEWIS [id number] ([facility] [place]) [place] [facility] [place] .ROUTE .MEDSUPPLY Qty: 1 0RF Rx Instructions: Nebulizer with tubing x 1 week potassium chloride 20 mEq tablet extended release 20 meq PO .COMPLEX Qty: 30 2RF Rx Instructions: 20 mEq orally three days a week; ondansetron 4 mg tablet,disintegrating 4 mg PO Q4H PRN (Reason: nausea and vomiting) Qty: 60 0RF duloxetine 30 mg capsule,delayed release(DR/EC) See Rx Instructions PO .COMPLEX Qty: 270 3RF Rx Instructions: take 2 tabs in AM, take 1 tab in PM PO daily; omeprazole 20 mg capsule,delayed release(DR/EC) 20 mg PO DAILY Qty: 90 3RF nystatin-triamcinolone 100,000-0.1 unit/gram-% ointment 1 applic topical TID PRN (Reason: Skin Irritation) budesonide 3 mg capsule,delayed,extend.release 9 mg PO QAM cetirizine [Zyrtec] 10 mg Tablet 20 mg PO DAILY PRN (Reason: Allergy Symptoms) albuterol sulfate 90 mcg/actuation HFA aerosol inhaler 2 puff INHALATION Q6 PRN (Reason: Shortness Of Breath Or Wheezing) Discontinued pravastatin 40 mg tablet 40 mg PO DAILY Qty: 90 3RF oxycodone 5 mg tablet 5 mg PO Q6H PRN (Reason: pain (scale score 7-10)) Qty: 30 0RF spironolactone 50 mg tablet 50 mg PO DAILY Qty: 90 3RF furosemide 40 mg tablet 40 mg PO QAM Qty: 90 1RF Rx Instructions: doesnt need till due Discharge Orders: Discharge Order (Routine); Ordered 10/30/24 Ordered By: Dre Bradley/Other Patient Handouts: A1C, 5 Steps for Eating Healthier Admission Data Admit Date/Time: 10/27/24 14:39 Attending Provider: Dre De La Rosa Admit Provider: Dmitry Britton Primary Care Provider: Preston Winters Other Providers: Dmitry Britton; Juan F Dill Other Interventions: Discharge Summary Assessment (RN) Last Done: 10/30/24 16:15 Hospital Stay Data Consultations 10/26/24 20:25 ED Decision to Admit Stat 10/26/24 23:41 Consult Neurology Routine Diagnostic Imagining Performed 10/26/24 18:48 CT angio head w con Stat CT angio neck with con Stat CT head/brain wo con Stat 10/26/24 20:56 CT head venogram w con Stat 10/26/24 22:34 MR brain wo con Stat 10/30/24 09:29 CT head/brain wo con Stat Head CT 10/26/24 18:48 CR Exam(s): CT HEAD Without Contrast EXAM: CT Head Without Intravenous Contrast CLINICAL HISTORY: Reason for exam: neuro deficit, acute stroke suspected. TECHNIQUE: Axial computed tomography images of the head/brain without intravenous contrast. CTDI is 36.31 mGy and DLP is 546.36 mGy-cm. Automated exposure control was utilized for the study. A dose lowering technique was utilized adhering to the principles of ALARA. COMPARISON: No relevant prior studies available. FINDINGS: Brain: atrophy and chronic microvascular ischemic changes. . No hemorrhage, extra-axial fluid collection, mass effect, or edema. Ventricles: Unremarkable. Bones/joints: Unremarkable. No fracture. Soft tissues: Unremarkable. Sinuses: No acute sinusitis. Mastoid air cells: Unremarkable as visualized. IMPRESSION: 1. No acute intracranial abnormality. Communications: Call Doctor Stroke Electronically signed by: Jamel Haynes MD 10/26/24 20:44 PM Head CTA 10/26/24 18:48 CR Exam(s): CTA HEAD With Contrast IV Amt: 119 ml optiray 320 EXAM: CT Angiography Head With Intravenous Contrast CLINICAL HISTORY: Reason for exam: neuro deficit, acute stroke suspected. TECHNIQUE: Axial computed tomographic angiography images of the head with intravenous contrast. CTDI is 12.87 mGy and DLP is 434.82 mGy-cm. Automated exposure control was utilized for the study. A dose lowering technique was utilized adhering to the principles of ALARA. MIP reconstructed images were created and reviewed. CONTRAST: Patient received 119 ml optiray 320 of IV contrast COMPARISON: No relevant prior studies available. FINDINGS: Right internal carotid artery: No acute findings. Intracranial segment is patent with no significant stenosis. No aneurysm. Right anterior cerebral artery: Unremarkable. No occlusion or significant stenosis. No aneurysm. Right middle cerebral artery: Unremarkable. No occlusion or significant stenosis. No aneurysm. Right posterior cerebral artery: Unremarkable. No occlusion or significant stenosis. No aneurysm. Right vertebral artery: Unremarkable as visualized. Left internal carotid artery: No acute findings. Intracranial segment is patent with no significant stenosis. No aneurysm. Left anterior cerebral artery: Unremarkable. No occlusion or significant stenosis. No aneurysm. Left middle cerebral artery: Unremarkable. No occlusion or significant stenosis. No aneurysm. Left posterior cerebral artery: Unremarkable. No occlusion or significant stenosis. No aneurysm. Left vertebral artery: Unremarkable as visualized. Basilar artery: Unremarkable. No occlusion or significant stenosis. No aneurysm. IMPRESSION: Normal head CTA. Communications: Call Doctor Stroke Electronically signed by: Jamel Haynes MD 10/26/24 20:46 PM Neck CTA 10/26/24 18:48 CR Exam(s): CTA NECK With Contrast IV Amt: 119 ml optiray 320 EXAM: CT Angiography Neck With Intravenous Contrast CLINICAL HISTORY: Reason for exam: neuro deficit, acute stroke suspected. TECHNIQUE: Routine carotid CT angiography protocol was performed with intravenous contrast. NASCET criteria using the distal ICAs for comparison were used for evaluation of stenoses. CTDI is 12.87 mGy and DLP is 434.82 mGy-cm. Automated exposure control was utilized for the study. A dose lowering technique was utilized adhering to the principles of ALARA. MIP reconstructed images were created and reviewed. CONTRAST: Patient received 119 ml optiray 320 of IV contrast COMPARISON: None. FINDINGS: VASCULATURE: Right common carotid artery: Unremarkable. No occlusion or significant stenosis. No dissection. Right internal carotid artery: Unremarkable. Extracranial segment is patent with no occlusion or significant stenosis. No dissection. Right vertebral artery: Unremarkable. No occlusion or significant stenosis. No dissection. Left common carotid artery: Unremarkable. No occlusion or significant stenosis. No dissection. Left internal carotid artery: Unremarkable. Extracranial segment is patent with no occlusion or significant stenosis. No dissection. Left vertebral artery: Unremarkable. No occlusion or significant stenosis. No dissection. NECK: Bones/joints: Unremarkable. No acute fracture. Soft tissues: Unremarkable. Lung apices: Clear. CAROTID STENOSIS REFERENCE USING NASCET CRITERIA: % ICA stenosis = (1 - narrowest ICA diameter/diameter of distal cervical ICA) x 100. Mild - <50% stenosis. Moderate - 50-69% stenosis. Severe - 70-94% stenosis. Near occlusion - 95-99% stenosis. Occluded - 100% stenosis. IMPRESSION: Negative CTA neck. Communications: Call Doctor Stroke Electronically signed by: Jamel Haynes MD 10/26/24 20:[address] 10/26/24 20:56 Exam(s): CTA HEAD EXAM: CT Venography Head With Intravenous Contrast CLINICAL HISTORY: Reason for exam: ? ctv. TECHNIQUE: Axial computed tomographic venography images of the head with intravenous contrast. CTDI is 43 mGy and DLP is 866.17 mGy-cm. Automated exposure control was utilized for the study. A dose lowering technique was utilized adhering to the principles of ALARA. MIP reconstructed images were created and reviewed. COMPARISON: Head CT 03/03/2021 and MRI 07/16/2023 FINDINGS: Superior sagittal sinus: Unremarkable. Patent. Straight sinus: Unremarkable. Patent. Transverse sinuses: Lobular filling defects within the bilateral transverse dural venous sinuses are consistent with arachnoid granulations and were present on the prior contrast-enhanced head CT 03/03/2021. Sigmoid sinuses: Unremarkable. Patent. Internal jugular veins: Unremarkable as visualized. Internal cerebral and cortical veins: Unremarkable as visualized. IMPRESSION: Lobular filling defects within the bilateral transverse dural venous sinuses are consistent with arachnoid granulations and were present on the prior contrast-enhanced head CT 03/03/2021. Electronically signed by: Jamel Haynes MD 10/26/24 21:42 PM Brain MRI 10/26/24 22:34 CR Exam(s): MRI HEAD Without Contrast EXAM: MR Head Without Intravenous Contrast CLINICAL HISTORY: Reason for exam: stroke-like symptoms. TECHNIQUE: Magnetic resonance images of the head/brain without intravenous contrast in multiple planes. COMPARISON: Prior head CT from October 26, 2024. FINDINGS: Brain: There is a tiny acute ischemic injury within the left temporal and frontal lobes in addition to the insular cortex without evidence of hemorrhagic transformation. Remote ischemic injury of the right cerebellum. Mild nonspecific white matter changes. The flow voids at the base the brain are intact. Ventricles: Unremarkable. No ventriculomegaly. Bones/joints: Unremarkable. No acute fracture. Sinuses: Unremarkable as visualized. No acute sinusitis. Mastoid air cells: Unremarkable as visualized. No mastoid effusion. Orbits: Bilateral lens replacements. IMPRESSION: Tiny acute ischemic injuries in the left temporal and frontal lobes in addition to the insular cortex without evidence of hemorrhagic transformation. Communications: Verify Receipt Electronically signed by: Jacquie Gillespie MD 10/27/24 03:[address] 10/30/24 09:29 CT head/brain wo con CLINICAL HISTORY: 78 years-old Female with CVA. Acute stroke like symptoms TECHNIQUE: Multiple axial CT images of the head were obtained without contrast. A dose lowering technique was utilized adhering to the principles of ALARA. CT DOSE: 625.8 mGy.cm COMPARISON: Head CT studies 10/26/2024, 07/03/2024, brain MRI 12/27/2023. FINDINGS: No acute intracranial hemorrhage, midline shift, intracranial mass, hydrocephalu s, territorial ischemia or abnormal extra-axial collection. Involutional changes with white matter hypodensities suggestive of chronic microvascular ischemic disease. The tiny subcentimeter acute infarcts in the left cerebral hemisphere seen by MR are not appreciated by CT. The calvarium is intact. Mild mucoperiosteal thickening of the maxillary sinuses. Chronic appearing bilateral nasal bone fractures. Mastoid air cells are clear. IMPRESSION: 1. No acute intracranial hemorrhage, midline shift or acute territorial infarct. 2. The subcentimeter acute infarcts in the left cerebral hemisphere seen on the 10/26/2024 brain MRI are not visualized by CT. 3. Involutional changes with chronic microvascular ischemic disease. ACT 112: Negative or not required by law. The above report was generated using voice recognition software. It may contain grammatical, syntax or spelling errors. Electronically signed by: Santy Correa M.D. 10/30/2024 11:16 AM Laboratory Results - last 72 hr 10/27/24 10/27/24 10/27/24 05:24 16:27 19:41 WBC RBC Hgb Hct MCV MCH MCHC RDW Std Deviation RDW Coeff of Marie Plt Count MPV Immature Gran % (Auto) Neut % (Auto) Lymph % (Auto) Gibson % (Auto) Eos % (Auto) Baso % (Auto) Neut # (Auto) Lymph # (Auto) Gibson # (Auto) Eos # (Auto) Baso # (Auto) Immature Gran # (Auto) Sodium Potassium Chloride Carbon Dioxide Anion Gap BUN Creatinine Est Cr Clr Drug Dosing eGFR BUN/Creatinine Ratio Glucose POC Glucose 139 H 134 H Calcium Magnesium Vitamin B12 488 10/28/24 10/28/24 10/28/24 07:22 07:49 11:26 WBC 5.79 RBC 4.50 Hgb 11.1 L Hct 35.3 L MCV 78.4 L MCH 24.7 L MCHC 31.4 L RDW Std Deviation 46.8 H RDW Coeff of Marie 16.6 H Plt Count 218 MPV 9.4 Immature Gran % (Auto) 0.5 Neut % (Auto) 51.4 Lymph % (Auto) 35.2 Gibson % (Auto) 9.8 Eos % (Auto) 2.4 Baso % (Auto) 0.7 Neut # (Auto) 2.97 Lymph # (Auto) 2.04 Gibson # (Auto) 0.57 Eos # (Auto) 0.14 Baso # (Auto) 0.04 Immature Gran # (Auto) 0.03 Sodium 141 Potassium 3.8 Chloride 107 Carbon Dioxide 27 Anion Gap 7 BUN 19 Creatinine 0.90 Est Cr Clr Drug Dosing 50.6 eGFR 66.26 BUN/Creatinine Ratio 21.1 H Glucose 98 POC Glucose 85 116 H Calcium 8.9 Magnesium 2.1 Vitamin B12 10/28/24 10/28/24 10/29/24 16:44 19:43 06:13 WBC 6.39 RBC 4.55 Hgb 11.4 L Hct 35.4 L MCV 77.8 L MCH 25.1 MCHC 32.2 RDW Std Deviation 46.4 H RDW Coeff of Marie 16.5 H Plt Count 236 MPV 9.8 Immature Gran % (Auto) 0.6 Neut % (Auto) 48.4 Lymph % (Auto) 38.3 Gibson % (Auto) 9.9 Eos % (Auto) 2.0 Baso % (Auto) 0.8 Neut # (Auto) 3.09 Lymph # (Auto) 2.45 Gibson # (Auto) 0.63 H Eos # (Auto) 0.13 Baso # (Auto) 0.05 Immature Gran # (Auto) 0.04 Sodium 141 Potassium 3.9 Chloride 109 H Carbon Dioxide 26 Anion Gap 6 BUN 19 Creatinine 0.84 Est Cr Clr Drug Dosing 54.7 eGFR 71.97 BUN/Creatinine Ratio 22.6 H Glucose 89 POC Glucose 136 H 172 H Calcium 9.0 Magnesium 2.2 Vitamin B12 10/29/24 10/29/24 10/29/24 07:20 11:20 16:18 WBC RBC Hgb Hct MCV MCH MCHC RDW Std Deviation RDW Coeff of Marie Plt Count MPV Immature Gran % (Auto) Neut % (Auto) Lymph % (Auto) Gibson % (Auto) Eos % (Auto) Baso % (Auto) Neut # (Auto) Lymph # (Auto) Gibson # (Auto) Eos # (Auto) Baso # (Auto) Immature Gran # (Auto) Sodium Potassium Chloride Carbon Dioxide Anion Gap BUN Creatinine Est Cr Clr Drug Dosing eGFR BUN/Creatinine Ratio Glucose POC Glucose 122 H 94 109 H Calcium Magnesium Vitamin B12 10/29/24 10/30/24 10/30/24 20:05 07:23 07:33 WBC RBC Hgb Hct MCV MCH MCHC RDW Std Deviation RDW Coeff of Marie Plt Count MPV Immature Gran % (Auto) Neut % (Auto) Lymph % (Auto) Gibson % (Auto) Eos % (Auto) Baso % (Auto) Neut # (Auto) Lymph # (Auto) Gibson # (Auto) Eos # (Auto) Baso # (Auto) Immature Gran # (Auto) Sodium 138 Potassium 3.9 Chloride 106 Carbon Dioxide 25 Anion Gap 7 BUN 20 Creatinine 0.90 Est Cr Clr Drug Dosing 51.5 eGFR 66.26 BUN/Creatinine Ratio 22.2 H Glucose 114 H POC Glucose 112 H 117 H Calcium 9.2 Magnesium 2.1 Vitamin B12 10/30/24 11:23 WBC RBC Hgb Hct MCV MCH MCHC RDW Std Deviation RDW Coeff of Marie Plt Count MPV Immature Gran % (Auto) Neut % (Auto) Lymph % (Auto) Gibson % (Auto) Eos % (Auto) Baso % (Auto) Neut # (Auto) Lymph # (Auto) Gibson # (Auto) Eos # (Auto) Baso # (Auto) Immature Gran # (Auto) Sodium Potassium Chloride Carbon Dioxide Anion Gap BUN Creatinine Est Cr Clr Drug Dosing eGFR BUN/Creatinine Ratio Glucose POC Glucose 101 H Calcium Magnesium Vitamin B12 Pending Results Patient Have Any Pending Studies at Discharge: Yes (Tickborne panel: Anaplasma, Babesia, Ehrlichia PCR) Discharge Instructions Given to Patient (Per Discharging Provider) DISCHARGE INSTRUCTION TO PATIENT/FAMILY: Follow-up with your primary care provider within 1 week regarding: Posthospital discharge, medication review, medication refills and follow-up on all your medical problems, new diagnosis of type 2 diabetes mellitus, pending test results Please take all your discharge medications, discharge information and discharge instructions to all your doctors appointments. Avoid all NSAIDs including ibuprofen, Motrin, Advil, Aleve, naproxen, meloxicam, Toradol, diclofenac Following test results are still pending: T[facility] panel: Anaplasma, Babesia, Ehrlichia PCR: Please follow-up with your primary care provider within 1 week to get results of these pending tests Follow-up with your primary care provider for discussion about resuming levothyroxine. Your TSH was elevated You need a court recording monitor on discharge per neurology recommendations since you had a stroke to assess for any arrhythmias: Please follow-up with cardiology (Dr. Wyatt) to arrange court recording monitor You have been diagnosed with a stroke: you have to be on Aspirin 81 mg daily and Plavix 75 mg daily for a total of 21 days until 11/17/2024 and then you will stay on Aspirin 81 mg daily indefinitely Please follow-up with psychiatrist as outpatient regarding chronic benzodiazepine use and anxiety. Labs through PCP in 1 week: CBC, CMP, MG, VITAMIN D Total Time Total Time Spent Total Time Spent (In Minutes): 40 minutes Coding Level of Care Code 71568 INP/OBS DISCH >30 MIN Diagnoses Acute CVA (cerebrovascular accident) I63.9 Hypertension I10 Acute kidney injury N17.9 Mixed hyperlipidemia E78.2 Type 2 diabetes mellitus E11.9 Microscopic colitis K52.839 Fe deficiency anemia D50.9 Hypothyroidism E03.9 Obesity (BMI 30-39.9) E66.9
[2024-10-30 16:16] VITALS: BP 155/90
[2024-10-31] MEDS ORDERED: LOSARTAN POTASSIUM 50 MG TAB PO SCH (09:00)
[2024-10-31] MEDS ORDERED: hydroCHLOROthiazide 25 MG TAB PO SCH (09:00)
[2024-10-31 23:23] LABS: Babesia microti DNA Not Detected (Not Detected)
== END 2024-10-30 17:33 | disposition home or self-care (01) | DRG 65 ==
LOC: 2S 18:31 → ED 18:31 → SUATTDRO 22:36 → 2S 23:24

== ENCOUNTER 2025-05-14 14:00 | Inpatient (IN) ==
[2025-05-14] MEDS: NOREPINEPHRINE/D5W 4 MG/250 ML PLCT IV SCH (14:23)
[2025-05-14] MEDS ORDERED: STAT IV Infusion **Titration per Protocol STA (14:24)
[2025-05-14] MEDS: SODIUM CHLORIDE 0.9% 1,000 ML IV ONE ×2 (14:30→16:00)
[2025-05-14] MEDS: NOREPINEPHRINE/D5W 4 MG/250 ML IV ONE (15:15)
[2025-05-14 15:17] LABS: Base Excess VBG -5.6 mEq/L; HCO3 VBG 21 mmol/L; Oxygen Saturation VBG < 60.0 %; PCO2 VBG 45 mmHg (38-50); PO2 VBG 25 mmHg; pH VBG 7.28 (7.36-7.41)
--- NOTE | 2025-05-14 15:17 | Emergency Department Note ---
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 Condition: Serious Forms Stand Alone Forms: My [facility], Suicide Prevention Resources Prescriptions Prescriptions: No Action ondansetron 4 mg tablet,disintegrating 4 mg PO Q4H PRN (Reason: nausea and vomiting) Qty: 60 0RF rosuvastatin 20 mg tablet 20 mg PO HS Qty: 90 3RF hydroxyzine HCl 25 mg tablet 25 mg PO BID PRN (Reason: itching) Qty: 90 1RF potassium chloride 20 mEq tablet extended release 20 meq PO DAILY Qty: 30 2RF lorazepam 2 mg tablet 2 mg PO TID PRN (Reason: anxiety) Qty: 90 0RF Rx Instructions: monthly (when due) zolpidem 10 mg tablet 10 mg PO QPM Qty: 30 0RF Rx Instructions: Supervising physician Preston Winters MD LEWIS [id number] [place] [place] nebulizers [facility] [place] See Rx Instructions .ROUTE .MEDSUPPLY Qty: 1 0RF Rx Instructions: Nebulizer with tubing x 1 week allopurinol 100 mg tablet 100 mg PO DAILY Rx Instructions: 05/04-Patient is not taking at this time ascorbate calcium (vitamin C) 500 mg tablet 500 mg PO BID duloxetine 30 mg capsule,delayed release(DR/EC) See Rx Instructions PO .COMPLEX Qty: 270 3RF Rx Instructions: take 2 tabs in AM, take 1 tab in PM PO daily; nystatin-triamcinolone 100,000-0.1 unit/gram-% ointment 1 applic topical TID PRN (Reason: Skin Irritation) hydrochlorothiazide 25 mg tablet 25 mg PO QAM losartan 50 mg tablet 50 mg PO HS omeprazole 20 mg capsule,delayed release(DR/EC) 20 mg PO DAILY PRN (Reason: Heartburn) cyclosporine [Restasis] 0.05 % Dropperette 1 drp OPB AMPM ferrous sulfate 325 mg (65 mg iron) Tablet,Delayed Release (Dr/Ec) 325 mg PO BIDM Qty: 60 0RF prednisone 10 mg tablet See Rx Instructions .ROUTE .COMPLEX Qty: 12 0RF Rx Instructions: 10 mg orally 3 times a day for 2 days, then 10 mg twice a day for 2 days, then 10 mg once a day for 2 days, then stop cetirizine [Zyrtec] 10 mg Tablet 20 mg PO DAILY PRN (Reason: Allergy Symptoms) albuterol sulfate 90 mcg/actuation HFA aerosol inhaler 2 puff INHALATION Q6 PRN (Reason: Shortness Of Breath Or Wheezing) aspirin 81 mg Tablet,Delayed Release (Dr/Ec) 81 mg PO QAM Qty: 30 0RF acetaminophen [Tylenol Extra Strength] 500 mg Tablet 1,000 mg PO TID PRN (Reason: pain) Qty: 10 0RF Referrals Referrals: ProPreston MD [Primary Care Provider] -
[2025-05-14 15:30] LABS: Hematocrit (blood only) 28.0 % (37.0-47.0); Hemoglobin 8.5 g/dl (12.0-16.0); Immature Granulocytes # (auto) 0.21 K/uL (0.01-0.20); Immature Granulocytes % (auto) 1.9 %; Mean Corpuscular Hemoglobin 24.9 pg (25.0-34.0); Mean Corpuscular Volume 81.9 fL (80.0-100.0); Platelet Count 317 K/uL (130-400); RDW Standard Deviation 46.8 fL (36.4-46.3); Red Blood Count 3.42 M/uL (4.20-5.40); White Blood Count 11.03 K/ul (4.8-10.8)
[2025-05-14 15:45] LABS: Appearance Urine Clear (Clear); Bacteria Urine Automated None Seen (None Seen); Cast Urine Automated >20 /lpf (0-2); Epithelial Cell Urine Auto 0-2 /hpf (0-2); Glucose Urine UA Trace (Negative); RBC Urine Automated 0-2 /hpf (0-2)
[2025-05-14 15:53] LABS: Acetaminophen < 3 ug/ml (10-30); Amphetamines+Metham, Urine Neg (Neg); MDMA (Ecstacy), Urine Neg (Neg); Marijuana, Urine Neg (Neg); Salicylate < 3.0 mg/dl (3.0-30)
[2025-05-14 15:55] LABS: Calcium 8.7 mg/dl (8.6-10.3); Potassium 3.5 mmol/L (3.5-5.1)
[2025-05-14 16:01] LABS: INR 1.0 (0.9-1.1); Prothrombin Time 10.6 Seconds (9.0-12.0)
--- NOTE | 2025-05-14 16:17 | XCELERA ---
[id number] \\[id number]
[2025-05-14 16:28] LABS: Anion Gap 13.0 (3-11); Bilirubin,Total 0.6 mg/dl (0.2-1.0); Carbon Dioxide 21.0 mmol/L (21-32); Chloride 105.0 mmol/L (98-107); Magnesium 1.9 mg/dl (1.7-2.4); Sodium 139.0 mmol/L (136-145)
[2025-05-14 16:34] LABS: Alanine Aminotransferase 12.0 U/L (7-52); Albumin Globulin Ratio 1.4 (0.9-2); Alkaline Phosphatase 41.0 U/L (34-104); Blood Urea Nitrogen 21.0 mg/dl (6-23); Creatine Kinase 203.0 U/L (26-192); Creatinine Clr Calc Pharmacy 31.8 ml/min; Globulin 2.5 gm/dl (2.5-4.0); Glucose 158.0 mg/dl (70-99(Fasting)); Total Protein 6.0 gm/dl (6.0-8.3)
[2025-05-14] MEDS: cefTRIAXone SODIUM 2,000 MG/50 ML BAG IV STA (16:59)
[2025-05-14] MEDS ORDERED: ALBUTEROL HFA 8 GM INHALER INH PRN (17:47)
[2025-05-14] MEDS ORDERED: ACETAMINOPHEN 500 MG TAB PO PRN (17:47)
[2025-05-14] MEDS: MAGNESIUM SULFATE / D5W 1 GM/100 ML BAG IV STA (17:52)
--- NOTE | 2025-05-14 18:11 | XRay Report ---
EXAM: XR chest 1V portable CLINICAL HISTORY: POSS OVERDOSE WTW/SDM. TECHNIQUE: An X-ray image of the chest is obtained in AP projection. COMPARISON: 12/05/2024. FINDINGS: Pulmonary Parenchyma: Prominent bronchovascular markings bilaterally. No evidence of consolidation, collapse, or focal opacities. No pulmonary nodules are identified. No evidence of pleural effusion or pleural thickening. Heart and Mediastinum: Heart size and shape are normal. No mediastinal widening or masses. Congested hilar vasculature. Bony Thorax: Bony thorax appears intact without fractures or deformities. Soft Tissues: Soft tissues overlying the chest wall are unremarkable. A large hiatus hernia is stable IMPRESSION: 1. Prominent bronchovascular markings bilaterally with congested hilar vasculature, suggesting pulmonary congestion. 2. A large hiatus hernia is stable. 3. No gross interval changes. Electronically signed by Robbin Kemp 05-14-2025 6:10 PM
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
[2025-05-14] MEDS ORDERED: ARTIFICIAL TEARS OP PRN (18:57)
[2025-05-14 20:54] LABS: Anion Gap 8.0 (3-11); Calcium 8.0 mg/dl (8.6-10.3); Carbon Dioxide 22.0 mmol/L (21-32); Chloride 107.0 mmol/L (98-107); Potassium 3.7 mmol/L (3.5-5.1); Sodium 137.0 mmol/L (136-145)
[2025-05-14 21:00] LABS: Blood Urea Nitrogen 19.0 mg/dl (6-23); Creatinine Clr Calc Pharmacy 40.6 ml/min; Glucose 167.0 mg/dl (70-99(Fasting))
[2025-05-14] MEDS: PLASMA-LYTE A 1,000 ML IV ONE (21:03)
[2025-05-14] MEDS: POTASSIUM CHLORIDE CRTAB 20 MEQ TABCR PO STA (21:04)
[2025-05-14] MEDS: MAGNESIUM SULFATE / D5W 1 GM/100 ML BAG IV ONE (21:04)
[2025-05-14] MEDS: ROSUVASTATIN CALCIUM 20 MG TAB PO SCH (22:02)
[2025-05-14] MEDS: HEPARIN SOD 5,000 UNIT/0.5 ML VIAL SQ SCH (22:03)
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
[2025-05-15 02:17] LABS: Hematocrit (blood only) 25.0 % (37.0-47.0); Hemoglobin 7.7 g/dl (12.0-16.0); Immature Granulocytes # (auto) 0.08 K/uL (0.01-0.20); Immature Granulocytes % (auto) 0.9 %; Mean Corpuscular Hemoglobin 24.7 pg (25.0-34.0); Mean Corpuscular Volume 80.1 fL (80.0-100.0); Platelet Count 268 K/uL (130-400); RDW Standard Deviation 46.3 fL (36.4-46.3); Red Blood Count 3.12 M/uL (4.20-5.40); White Blood Count 8.68 K/ul (4.8-10.8)
[2025-05-15 02:33] LABS: Anion Gap 8.0 (3-11); Blood Urea Nitrogen 19.0 mg/dl (6-23); Calcium 8.0 mg/dl (8.6-10.3); Carbon Dioxide 24.0 mmol/L (21-32); Chloride 106.0 mmol/L (98-107); Creatinine Clr Calc Pharmacy 47.2 ml/min; Glucose 113.0 mg/dl (70-99(Fasting)); Magnesium 2.2 mg/dl (1.7-2.4); Potassium 3.7 mmol/L (3.5-5.1); Sodium 138.0 mmol/L (136-145)
[2025-05-15 02:42] LABS: Ovalocytes 1+
[2025-05-15] MEDS: POTASSIUM CHLORIDE CRTAB 20 MEQ TABCR PO SCH (04:14)
[2025-05-15] MEDS: ICU ELECTROLYTE REPLACEMENT PROTOCOL SCH (06:37)
[2025-05-15 08:28] LABS: Anion Gap 8.0 (3-11); Blood Urea Nitrogen 15.0 mg/dl (6-23); Calcium 7.9 mg/dl (8.6-10.3); Carbon Dioxide 23.0 mmol/L (21-32); Chloride 106.0 mmol/L (98-107); Creatinine Clr Calc Pharmacy 47.2 ml/min; Glucose 182.0 mg/dl (70-99(Fasting)); Magnesium 2.0 mg/dl (1.7-2.4); Potassium 3.8 mmol/L (3.5-5.1); Sodium 137.0 mmol/L (136-145)
[2025-05-15] MEDS ORDERED: ASPIRIN 81 MG ECTAB PO SCH (09:00)
--- NOTE | 2025-05-15 10:09 | Critical Care Progress Note ---
Date of Service May 15, 2025 Assessment & Plan (1) Shock: (2) Accidental drug ingestion: (3) SAI (acute kidney injury): (4) Type 2 diabetes mellitus: (5) Hypothyroidism: Plan Reason Critically Ill: 79 YOF presents with hypotension in setting of accidental ingestion of tablets of Reportedly Tizanidine, Clonazaepam, Ativan. She was hypotensive and initiated on Vasopressors following 3L Crystalloid infusion. Neuro - No acute needs CAM ICU: NEGATIVE - Somnolence- improving per patient and nurse at bedside- continue with supportive care - Follow fluid volume status and HCO3/CO2 levles as needed Cardiac - Shock unspecified, abnormal ECG, Hx: HTN, HLD - Shock unspecified likely secondary to vasodilatory effects of Tizanidine - 3 L Crystalloid infsued - continue with Plasmalyte at 125 ml/hr as she is still with dry mucous membranes and has not voided since comming to ER - Wean Levophed goal MAPS >65 - WBC mildly elevated , NLR 4:1, PCT negative- blood cultures pending, UA negative- Has received 1 dose of Rocephin- no clear source will hold on further abx at this time - Follow oragn perfusion labs with BMP, Lactate, and PH - Abnormal ECG- Initial concern was later changes- ECHO obtained - with no RWMA, EF >70%, normal RV and nml estimated RA/PA pressures- likely demand changes in setting of hypotension - Hold antihypertensives Respiratory - no acute needs - follow clinically- CXR interpreted as poss. pulmonary congestion GI - NO acute needs - Advance diet as tolerated RENAL/LYTES - ARF on CKD III - Likely pre-renal in the setting of hypotension- follow am BMP and UO - If no improvement consider renal imaging and renal electrolytes - No acute needs ENDO - DMII, Hypothyroidism - ICU hyperglycemic protocol goal <180mg/DL - Continue synthroid - TSH pending - Random cortisol pending HEME - No acute needs at this time ID - Mildly elevated leukocytosis, NLR 4:1, negative PCT, UA negative for suggestion of infection - Received 1 dose of Rocephin- hold further doses, will follow clinically with fevers, WBC and assessment LINES/IV ACCESS - PIV Continue use of these lines DVT PROPHYLAXIS - SCDS, heparin 5000 units subq q12 DISPO: ICU while requiring vasopressor medications I have personally spent 35 minutes of critical care time in the direct management of this patient. This is a life/limb threatening event. This includes time spent evaluating patient, direct bedside care, chart review, placing orders, interpretation of diagnostic studies, discussion with consultants, patient, and family members, as well as other required patient management activities. This time is exclusive of all separately billable procedures, and separate from and in addition to any other critical care service time. Thank you for allowing us to participate in the care of this patient. Please refer to my attending physician's documentation for any further recommendations. Admission and Anticipated Discharge Date Admission Date: May 14, 2025 Subjective Off pressors since mid-night Results & Data Results & Data Vital Signs (Past 12 Hours) Vital Signs Temp Pulse Resp BP Pulse Ox O2 Del Method 05/15/25 09:09 95 H 20 95 05/15/25 09:00 119/81 05/15/25 08:54 96 H 22 95 05/15/25 08:03 99 H 20 94 05/15/25 08:01 140/74 05/15/25 08:00 37.2 C 05/15/25 07:30 140/85 05/15/25 07:27 98 H 24 95 05/15/25 07:18 89 22 95 Room Air 05/15/25 07:00 124/73 05/15/25 06:00 123/76 05/15/25 05:54 90 28 H 94 05/15/25 05:00 138/70 05/15/25 05:00 138/70 05/15/25 05:00 105 H 19 96 05/15/25 04:30 92 H 20 94 05/15/25 04:30 144/78 H 05/15/25 04:03 91 H 21 92 05/15/25 04:00 146/80 H 05/15/25 04:00 146/80 H 05/15/25 04:00 146/80 H 05/15/25 03:57 91 H 22 92 05/15/25 03:06 87 25 H 94 05/15/25 03:00 144/84 H 05/15/25 03:00 144/84 H 05/15/25 02:57 87 21 96 05/15/25 02:31 153/90 H 05/15/25 02:19 107/74 05/15/25 02:19 107/74 05/15/25 02:15 83 11 L 93 05/15/25 02:12 87 28 H 93 05/15/25 01:42 88 21 94 05/15/25 01:30 146/76 H 05/15/25 01:30 146/76 H 05/15/25 01:15 88 17 94 05/15/25 01:09 87 18 94 05/15/25 00:31 129/85 05/15/25 00:31 129/85 05/15/25 00:30 90 20 95 05/15/25 00:24 87 19 94 05/15/25 00:00 Room Air 05/14/25 23:33 87 20 97 05/14/25 23:31 139/68 05/14/25 23:31 139/68 05/14/25 23:31 139/68 05/14/25 23:15 87 22 100 05/14/25 23:01 124/72 05/14/25 23:01 124/72 05/14/25 22:51 81 21 96 05/14/25 22:31 151/93 H 05/14/25 22:21 89 15 Coding Level of Care Code 67504 CRITICAL CARE 1ST 30-74M Diagnoses Shock R57.9 Accidental drug ingestion T50.901A SAI (acute kidney injury) N17.9 Type 2 diabetes mellitus E11.9 Hypothyroidism E03.9
[2025-05-15 11:32] LABS: Iron 22.0 mcg/dl (35-150); Total Iron Binding Cap Calc 396.0 mcg/dl (250-450); Transferrin 283.0 mg/dl (200-360); Transferrin (FE) Percent Satur 6.0 % (15-50)
[2025-05-15 14:33] LABS: Amphetamines+Metham, Urine Neg (Neg); MDMA (Ecstacy), Urine Neg (Neg); Marijuana, Urine Neg (Neg)
--- NOTE | 2025-05-15 14:45 | Electrocardiogram Report ---
Test Reason : Blood Pressure : */* mmHG Vent. Rate : 79 BPM Atrial Rate : 79 BPM P-R Int : 148 ms QRS Dur : 80 ms QT Int : 454 ms P-R-T Axes : 20 -6 211 degrees QTcB Int : 520 ms Sinus rhythm with Premature atrial complexes Inferior infarct (cited on or before 30-Apr-2025) Diffuse ST abnormality Prolonged QT Abnormal ECG When compared with ECG of 30-Apr-2025 12:47, Premature atrial complexes are now Present Questionable change in initial forces of Inferior leads ST now depressed in Anterolateral leads T wave inversion now evident in Anterolateral leads QT has lengthened Confirmed by Preston Duran ([id number]) on 05/15/2025 2:44:44 PM Referred By: Confirmed By: Preston Duran
--- NOTE | 2025-05-15 14:53 | Electrocardiogram Report ---
Test Reason : Blood Pressure : */* mmHG Vent. Rate : 81 BPM Atrial Rate : 81 BPM P-R Int : 140 ms QRS Dur : 72 ms QT Int : 470 ms P-R-T Axes : 81 -2 16 degrees QTcB Int : 545 ms Poor data quality, interpretation may be adversely affected Sinus rhythm with Premature supraventricular complexes Nonspecific T wave abnormality Abnormal ECG When compared with ECG of 14-May-2025 14:10, (unconfirmed) ST less depressed in Lateral leads T wave inversion no longer evident in Anterolateral leads Confirmed by Preston Duran ([id number]) on 05/15/2025 2:52:41 PM Referred By: Confirmed By: Preston Duran
--- NOTE | 2025-05-15 15:03 | Electrocardiogram Report ---
Test Reason : Blood Pressure : */* mmHG Vent. Rate : 81 BPM Atrial Rate : 81 BPM P-R Int : 150 ms QRS Dur : 82 ms QT Int : 510 ms P-R-T Axes : 31 -16 -4 degrees QTcB Int : 592 ms Sinus rhythm with occasional Premature ventricular complexes Minimal voltage criteria for LVH, may be normal variant ( R in aVL ) Inferior infarct (cited on or before 30-Apr-2025) Nonspecific T wave abnormality Abnormal ECG When compared with ECG of 14-May-2025 14:43, (unconfirmed) Premature ventricular complexes are now Present Premature supraventricular complexes are no longer Present Nonspecific T wave abnormality, worse in Anterior leads Confirmed by Preston Duran ([id number]) on 05/15/2025 3:02:36 PM Referred By: REFERRED SELF Confirmed By: Preston Duran
--- NOTE | 2025-05-15 15:05 | Electrocardiogram Report ---
Test Reason : Blood Pressure : */* mmHG Vent. Rate : 84 BPM Atrial Rate : 84 BPM P-R Int : 148 ms QRS Dur : 88 ms QT Int : 366 ms P-R-T Axes : 37 -2 0 degrees QTcB Int : 432 ms Sinus rhythm with Premature supraventricular complexes Inferior infarct (cited on or before 30-Apr-2025) Abnormal ECG When compared with ECG of 14-May-2025 21:16, (unconfirmed) Premature ventricular complexes are no longer Present Premature supraventricular complexes are now Present Nonspecific T wave abnormality no longer evident in Anterior leads QT has shortened Confirmed by Prseton Duran ([id number]) on 05/15/2025 3:05:25 PM Referred By: REFERRED SELF Confirmed By: Preston Duran
--- NOTE | 2025-05-15 15:09 | Electrocardiogram Report ---
Test Reason : Blood Pressure : */* mmHG Vent. Rate : 97 BPM Atrial Rate : 97 BPM P-R Int : 138 ms QRS Dur : 84 ms QT Int : 374 ms P-R-T Axes : 42 -10 2 degrees QTcB Int : 474 ms Normal sinus rhythm Inferior infarct (cited on or before 30-Apr-2025) Poor R wave progression, consider anterior OH vs. lead placement vs. LVH Abnormal ECG When compared with ECG of 15-May-2025 02:16, (unconfirmed) Premature supraventricular complexes are no longer Present Serial changes of Inferior infarct Present Confirmed by Preston Duran ([id number]) on 05/15/2025 3:08:58 PM Referred By: REFERRED SELF Confirmed By: Preston Duran
--- NOTE | 2025-05-15 23:21 | Hospitalist Progress Note ---
Date of Service May 15, 2025 Assessment & Plan (1) Shock: (2) Obesity (BMI 30-39.9): (3) Type 2 diabetes mellitus: (4) Fe deficiency anemia: Plan #Cardiogenic shock, unknown cause Patient may have overdosed intentionally or unintentionally with trazodone and lorazepam. Currently UDS is negative. Will repeat. Patient is now off vasopressorts since mindnight. Will transfer off ICU. will consult psych liason due to possible suicide attempt though patient currently denies this # Hypertension - hold as patient was hypotensive # DM 2 - A1c 6.1%, continue diet control # CKD stage 3 - Cr at baseline, avoid nephrotoxin, # Microcytic anemia - probably KAYLYNN. Has been on oral iron as outpatient. rechecking iron levels. Follow up with primary care. # History of migraine - not currently # CVA earlier this year, symptomatic of vertigo and improved. Cont ASA 81, statin, antihypertensives Admission and Anticipated Discharge Date Admission Date: May 14, 2025 Subjective Patient reports no new symptoms and feels close to baseline. Patient tough feels tired as she did not sleep. Physical Exam Physical Exam: GEN: Patient appears pale, NAD. HEENT: pupils equal, sclerae anicteric, moist MM. she is missing a left-sided upper incisor RESP: normal WOB, CTAB CV: reg no mrg ABD: soft/nt/nd +BT SKIN: warm and dry, rash on especially forearms which appears eczematous extremities: no edema NEURO: AAAxO3,mo focla deficits Results & Data Results & Data Vital Signs (Past 12 Hours) Vital Signs Temp Pulse Pulse Resp BP BP Pulse Ox 05/15/25 22:30 37.6 C H 96 H 18 139/61 97 05/15/25 21:03 83 18 05/15/25 20:00 87 20 157/81 H 05/15/25 19:03 88 33 H 05/15/25 16:24 36.5 C 98 H 22 145/82 H 96 05/15/25 16:00 94 H 05/15/25 11:40 37.1 C 05/15/25 11:22 139/85 O2 Del Method 05/15/25 22:30 Room Air 05/15/25 21:03 05/15/25 20:00 05/15/25 19:03 05/15/25 16:24 Room Air 05/15/25 16:00 05/15/25 11:40 05/15/25 11:22 PG Care Time/CCT Total # of Minutes Spent Total Time Spent with Patient: Total time spent is greater than 50% in coordination of care (as documented) at patient's floor/unit and/or counseling patient: Coding Level of Care Code 69265 SUB INP/OBS CARE 3/50MIN Diagnoses Shock R57.9 Obesity (BMI 30-39.9) E66.9 Type 2 diabetes mellitus E11.9 Fe deficiency anemia D50.9
--- NOTE | 2025-05-16 07:21 | Hospitalist Progress Note ---
Date of Service May 16, 2025 Assessment & Plan (1) Shock: (2) Obesity (BMI 30-39.9): (3) Type 2 diabetes mellitus: (4) Fe deficiency anemia: Plan 79 F arrives with hypotension, suspected from inadvertant medicaiton overdose, did have fever 05/16/25, h/o htn, diabetes, ckd3, anemia, cva with vertigo during recovery #initial concern for cardiogenic shock, now maybe sepsis with fever source unknown at this time Patient may have overdosed intentionally or unintentionally with trazodone and lorazepam. Currently UDS is negative. . Patient is now off vasopressors transfer off ICU. will consult psych liason due to possible suicide attempt though patient currently denies this #fever, concern, blood cx check urine culture, no clinical localizing signs # Hypertension - hold as patient was hypotensive # DM 2 - A1c 6.1%, continue diet control # CKD stage 3 - Cr at baseline, avoid nephrotoxin, # Microcytic anemia - probably KAYLYNN. Has been on oral iron as outpatient. mid 7's hgb, iron is low will give venofer x 1 then resume oral Follow up with primary care. # CVA earlier this year, symptomatic of vertigo and improved. Cont ASA 81, statin, antihypertensives offering prn meclizine PT/OT ordered Admission and Anticipated Discharge Date Admission Date: May 14, 2025 Subjective pt did have a fever in am states she does not feel well but cannot localize any symptoms other than nausea Physical Exam Physical Exam: awake and alert-tearful c/o anxiety cardiac exam is regualar lungs are clear abd is soft no focal pain Results & Data Results & Data Vital Signs (Past 12 Hours) Vital Signs Temp Pulse Pulse Resp BP BP BP 05/16/25 03:02 101.3 F H 89 18 122/69 05/15/25 23:31 97.9 F 94 H 20 134/67 05/15/25 22:30 99.7 F H 96 H 18 139/61 05/15/25 22:29 94 H 05/15/25 21:03 83 18 05/15/25 20:00 87 20 157/81 H Pulse Ox O2 Del Method 05/16/25 03:02 93 Room Air 05/15/25 23:31 99 Room Air 05/15/25 22:30 97 Room Air 05/15/25 22:29 05/15/25 21:03 05/15/25 20:00 Laboratory Results review cbc, review chemistry, ordered blood cultures and urine culture PG Care Time/CCT Total # of Minutes Spent Total Time Spent with Patient: Total time spent is greater than 50% in coordination of care (as documented) at patient's floor/unit and/or counseling patient: Coding Level of Care Code 31393 SUB INP/OBS CARE 3/50MIN Diagnoses Shock R57.9 Obesity (BMI 30-39.9) E66.9 Type 2 diabetes mellitus E11.9 Fe deficiency anemia D50.9
[2025-05-16 07:41] LABS: Hematocrit (blood only) 24.7 % (37.0-47.0); Hemoglobin 7.6 g/dl (12.0-16.0); Immature Granulocytes # (auto) 0.05 K/uL (0.01-0.20); Immature Granulocytes % (auto) 0.9 %; Mean Corpuscular Hemoglobin 24.4 pg (25.0-34.0); Mean Corpuscular Volume 79.2 fL (80.0-100.0); Platelet Count 235 K/uL (130-400); RDW Standard Deviation 45.3 fL (36.4-46.3); Red Blood Count 3.12 M/uL (4.20-5.40); White Blood Count 5.65 K/ul (4.8-10.8)
[2025-05-16 08:02] LABS: Anion Gap 6.0 (3-11); Blood Urea Nitrogen 11.0 mg/dl (6-23); Calcium 8.0 mg/dl (8.6-10.3); Carbon Dioxide 27.0 mmol/L (21-32); Chloride 106.0 mmol/L (98-107); Creatinine Clr Calc Pharmacy 58.8 ml/min; Glucose 122.0 mg/dl (70-99(Fasting)); Magnesium 1.7 mg/dl (1.7-2.4); Potassium 3.3 mmol/L (3.5-5.1); Sodium 139.0 mmol/L (136-145)
[2025-05-16 08:14] LABS: Ovalocytes 1+; Polychromasia 1+; Tear Drop Cells 1+
[2025-05-16] MEDS: ACETAMINOPHEN 500 MG TAB PO PRN (11:19)
[2025-05-16] MEDS: ONDANSETRON INJ 2 MG/ML 2 ML VIAL IV PRN (11:19)
[2025-05-16] MEDS: MECLIZINE 12.5 MG TAB PO PRN (11:19)
[2025-05-16] MEDS: IRON SUCROSE 300 MG in SODIUM CHLORIDE 0.9% 250 ML IV ONE (12:29)
[2025-05-17 04:43] LABS: A calco-baum cmplx NotReported Not Detected (NotDetected); Bact fragilis Not Reported Not Detected (NotDetected); Blood Culture Id Panel See PCR Comment (NotDetected); C auris Not Reported Not Detected (NotDetected); Calbicans Not Reported Not Detected (NotDetected); Candida glabrata Not Reported Not Detected (NotDetected); Candida krusei Not Reported Not Detected (NotDetected); Cneoformans/gatti Not Reported Not Detected (NotDetected); Cparapsilosis Not Reported Not Detected (NotDetected); Ctropicalis Not Reported Not Detected (NotDetected); E cloacae compx Not Reported Not Detected (NotDetected); Efaecalis Not Reported Not Detected (NotDetected); Efaecium Not Reported Not Detected (NotDetected); Enterobacterales Not Reported Not Detected (NotDetected); Escherichia coli Not Reported Not Detected (NotDetected); H influenzae Not Reported Not Detected (NotDetected); K aerogenes Not Reported Not Detected (NotDetected); Koxytoca Not Reported Not Detected (NotDetected); Kpneumoniae grp Not Reported Not Detected (NotDetected); Lmonocyt Not Reported Not Detected (NotDetected); N meningitidis Not Reported Not Detected (NotDetected); P aeruginosa Not Reported Not Detected (NotDetected); Proteus spp Not Reported Not Detected (NotDetected); Salmonella spp Not Reported Not Detected (NotDetected); Staph lugdunensis Not Reported Not Detected (NotDetected); Staph spp. Not Reported DETECTED (NotDetected); Staphaureus Not Reported Not Detected (NotDetected); Staphepi Not Reported Not Detected (NotDetected); Stenmaltophilia Not Reported Not Detected (NotDetected); Strep agal(GrpB) Not Reported Not Detected (NotDetected); Strep pneum Not Reported Not Detected (NotDetected); Strep pyog (GrpA) Not Reported Not Detected (NotDetected); Strep spp Not Reported Not Detected (NotDetected)
[2025-05-17 04:57] LABS: Staphylococcus spp. DETECTED (NotDetected)
[2025-05-17 06:01] LABS: Hematocrit (blood only) 26.9 % (37.0-47.0); Hemoglobin 8.1 g/dl (12.0-16.0); Immature Granulocytes # (auto) 0.07 K/uL (0.01-0.20); Immature Granulocytes % (auto) 1.1 %; Mean Corpuscular Hemoglobin 24.3 pg (25.0-34.0); Mean Corpuscular Volume 80.5 fL (80.0-100.0); Platelet Count 240 K/uL (130-400); RDW Standard Deviation 46.5 fL (36.4-46.3); Red Blood Count 3.34 M/uL (4.20-5.40); White Blood Count 6.43 K/ul (4.8-10.8)
[2025-05-17 06:18] LABS: Anion Gap 5.0 (3-11); Blood Urea Nitrogen 11.0 mg/dl (6-23); Calcium 8.4 mg/dl (8.6-10.3); Carbon Dioxide 28.0 mmol/L (21-32); Chloride 108.0 mmol/L (98-107); Creatinine Clr Calc Pharmacy 58.1 ml/min; Glucose 110.0 mg/dl (70-99(Fasting)); Magnesium 1.8 mg/dl (1.7-2.4); Potassium 3.6 mmol/L (3.5-5.1); Sodium 141.0 mmol/L (136-145)
[2025-05-17] MEDS: FERROUS SULFATE 325 MG TAB PO SCH (08:46)
[2025-05-17 13:01] LABS: Chlamydia pneumoniae PCR Not Detected (NotDetected); Coronavirus 229E PCR Not Detected (NotDetected); Coronavirus CoV-2 (COVID19)PCR Not Detected (NotDetected); Coronavirus HKU1 PCR Not Detected (NotDetected); Coronavirus NL63 PCR Not Detected (NotDetected); Coronavirus OC43PCR Not Detected (NotDetected); Human Metapneumovirus PCR Not Detected (NotDetected); Parainfluenza Virus 1 PCR Not Detected (NotDetected); Parainfluenza Virus 2 PCR Not Detected (NotDetected); Parainfluenza Virus 3 PCR Not Detected (NotDetected); Parainfluenza Virus 4 PCR Not Detected (NotDetected); Respiratory Syncytial VirusPCR Not Detected (NotDetected); Rhinovirus/Enterovirus PCR Not Detected (NotDetected)
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
--- NOTE | 2025-05-17 17:31 | CT Scan Report ---
Clinical History: Injury Technique: Axial computed tomography images were obtained of the brain without intravenous contrast. Comparison is made to the prior examination dated 04/30/2025 Findings: There is unchanged cerebral atrophy, within expected limits for the patient's age. Areas of decreased attenuation are seen within the periventricular white matter, likely representing chronic small vessel ischemic disease. There is no definite sign of acute or old infarction. No intracranial hemorrhage is evident. No definite mass lesion is seen on this noncontrast examination. There is no midline shift or other form of herniation. No hydrocephalus is seen. No fracture is identified. The orbits and the visualized paranasal sinuses appear unremarkable. The mastoid air cells appear clear. Impression: 1. Cerebral atrophy and chronic small vessel ischemic disease 2. Otherwise unremarkable noncontrast CT of the brain Electronically signed by Dwight Cruz 05-17-2025 5:31 PM
--- NOTE | 2025-05-17 17:36 | CT Scan Report ---
EXAM: CT cervical spine CLINICAL HISTORY: Fall, neck pain TECHNIQUE: Contiguous axial images were obtained through the cervical spine without the use of intravenous contrast. Sagittal and coronal reformations are supplied. PRIORS: 11/01/2024 FINDINGS: Moderate osseous demineralization noted. Lordotic straightening is noted. No acute cervical spine fracture or facet dislocation. Moderate degenerative change noted at C3-C4 through C6-C7 with loss of intervertebral disc space height, small uncovertebral hypertrophic changes/osteophytes and anterior osteophytes noted. No prevertebral soft tissue swelling. Visualized trachea is patent. IMPRESSION: No CT evidence of an acute osseous abnormality. Electronically signed by Jo Montes 05-17-2025 5:36 PM
--- NOTE | 2025-05-17 17:39 | CT Scan Report ---
EXAMINATION: CT lumbar spine W/O con CLINICAL HISTORY: Fall PRIORS: Plain film 11/01/2024, MR 07/01/2027 TECHNIQUE: Contiguous axial images were obtained through the lumbar spine without the use of intravenous contrast. Sagittal and coronal reformations are supplied. FINDINGS: Moderate bordering on advanced osseous demineralization noted. Lordosis is preserved. Eycy-gb-anxf degenerative change present at L5-S1, T12-L1 through L2-L3 with vacuum disc phenomena, endplate sclerosis and posterior osteophytes. Mild lumbar scoliosis, convex to the right, unchanged. No high-grade vertebral body compression fracture. No facet dislocation. Moderate to advanced facet hypertrophic changes at L4-L5 and L5-S1. No paravertebral soft tissue swelling or hematoma. Muscle bulk is symmetric. Sacroiliac joints are patent. Bilateral renal cysts in the [id number]. IMPRESSION: 1. Osseous demineralization with scoliosis and degenerative change. 2. No acute displaced fracture or dislocation. Electronically signed by Jo Montes 05-17-2025 5:39 PM
[2025-05-17] MEDS: LORazepam 1 MG TAB PO STA (17:42)
[2025-05-17] MEDS: KETOROLAC TROMETHAMINE 15 MG/ML VIAL IV ONE (18:39)
[2025-05-17] MEDS: LORazepam 1 MG TAB PO SCH (20:51)
[2025-05-18 06:45] LABS: Hematocrit (blood only) 24.6 % (37.0-47.0); Hemoglobin 7.5 g/dl (12.0-16.0); Immature Granulocytes # (auto) 0.04 K/uL (0.01-0.20); Immature Granulocytes % (auto) 0.7 %; Mean Corpuscular Hemoglobin 24.9 pg (25.0-34.0); Mean Corpuscular Volume 81.7 fL (80.0-100.0); Platelet Count 255 K/uL (130-400); RDW Standard Deviation 46.8 fL (36.4-46.3); Red Blood Count 3.01 M/uL (4.20-5.40); White Blood Count 5.38 K/ul (4.8-10.8)
[2025-05-18 07:13] LABS: Ovalocytes 1+; Polychromasia 1+
[2025-05-18] MEDS: CETIRIZINE HCL 10 MG TABLET PO PRN (07:50)
[2025-05-18] MEDS ORDERED: LORazepam 1 MG TAB PO PRN (13:54)
--- NOTE | 2025-05-18 13:58 | Hospitalist Progress Note ---
Date of Service May 18, 2025 Assessment & Plan (1) Shock: (2) Obesity (BMI 30-39.9): (3) Type 2 diabetes mellitus: (4) Fe deficiency anemia: (5) Fever: (6) Positive blood culture: (7) Fall: (8) Chronically on benzodiazepine therapy: Plan 79yo female with unintentional prescription medication overdose (trazodone, zanaflex, benzos) leading to shock & ICU admission. Required pressors briefly while in ICU. Developed fever 05/16/25 early AM (38.5 C). Continues with low-grade temps. #shock - -present on admission; presumed 2nd to medication side effects/overdose -required pressors in ICU -cortisol 7.1 -anti-hypertensives remain on hold and BPs have been very acceptable -no evidence of septic shock at admission nor cardiogenic shock (echo with EF>70% with small LV cavity but preserved systolic function) -small LV cavity would set her up for low BP IF she is volume contracted -no recurrent low BPs # Hypertension - BP meds are still on hold and BPs remain stable without them; does patient need her BP meds?? (losartan, HCTZ) -checked orthostatic BPs - negative # DM 2 - A1c 6.1%, continue diet control # CKD stage 3 - Cr remains stable # Microcytic anemia - ferritin consistently <20 - consistent with iron deficiency -s/p venofer x 1 while here -give 2nd dose today, and 3rd dose tomorrow -Hb <8 today - follow, repeat CBC am -should have GI w/u for this; last EGD/colonoscopy in per records -prior dx of microscopic colitis but no longer on budesonide daily? 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 -start ceftin 500mg BID x 7 days -saline spray -11/18 blood cx's + for staph hominis - contaminant -biofire resp panel negative -urine cx neg -lyme neg -anaplasmosis/babesia smears neg; DNA tests sent & pending #fall - had such 05/17 - -no apparent injury, but with neck/low back pain -obtained CT head, CT c-spine, CT l-spine - no ICH, fractures, etc -orthostatic BPs neg -etiology of falls?? #chronic benzo use - -to avoid/treat withdrawal will resume ativan 1mg at HS and ativan 2mg prn otherwise -has been on benzos for many years -PT/OT evals completed; cleared for home; should have outpatient PT, however, for gait & balance training updated extensively at bedside yesterday anticipate d/c to home tomorrow if labs tomorrow am are stable Admission and Anticipated Discharge Date Admission Date: May 14, 2025 Subjective patient c/o sinus pressure/pain, neck discomfort, nasal congestion NO tooth/dental pain or jaw pain denies dizziness ate good breakfast denies any dyspnea we discussed ativan use and not using any home supply if she has such in her possession tele overnight - NSR Review of Systems Review of Systems: gen - no chills cv - no chest pain pulm - no significant cough GI - no nausea/vomiting Physical Exam Physical Exam: gen - NAD, in good spirits mouth - MMM neck - no JVD sinuses - tender to palpation maxillary sinuses b/l nose - deformity heart - RRR, s1 s2, no murmur lungs - CTA b/l abd - soft NT ND BS+ ext - pulses b/l feet 2+; no edema Results & Data Results & Data Vital Signs (Past 12 Hours) Vital Signs Temp Pulse Pulse Resp BP BP Pulse Ox 05/18/25 13:51 85 05/18/25 11:50 37.2 C 91 H 19 129/68 93 05/18/25 08:00 05/18/25 08:00 72 05/18/25 07:32 37.2 C 83 20 143/87 H 94 05/18/25 06:37 36.9 C 77 16 136/84 96 05/18/25 02:47 37.8 C H 79 20 120/73 96 O2 Del Method 05/18/25 13:51 05/18/25 11:50 05/18/25 08:00 Room Air 05/18/25 08:00 05/18/25 07:32 Room Air 05/18/25 06:37 Room Air 05/18/25 02:47 Nasal Cannula Laboratory Results Laboratory Results - last 48 hr 05/17/25 05/17/25 05/17/25 10:43 10:53 16:23 WBC RBC Hgb Hct MCV MCH MCHC RDW Std Deviation RDW Coeff of Marie Plt Count MPV Immature Gran % (Auto) Neut % (Auto) Lymph % (Auto) [place] % (Auto) Eos % (Auto) Baso % (Auto) Neut # (Auto) Lymph # (Auto) [place] # (Auto) Eos # (Auto) Baso # (Auto) Immature Gran # (Auto) Polychromasia Ovalocytes ESR Sodium Potassium Chloride Carbon Dioxide Anion Gap BUN Creatinine Est Cr Clr Drug Dosing eGFR BUN/Creatinine Ratio Glucose POC Glucose 113 H 103 H Calcium C-Reactive Protein Folate Adenovirus (PCR) Not Detected Anaplasma Smear Babesia Smear B. pertussis DNA (PCR) Not Detected B.parapertussis DNA PCR Not Detected Lyme Disease Screen C. pneumoniae DNA (PCR) Not Detected Coronavirus OC43 (PCR) Not Detected Coronavirus HKU1 (PCR) Not Detected Coronavirus 229E (PCR) Not Detected SARS-CoV-2 (PCR) Not Detected Coronavirus NL63 (PCR) Not Detected Human Metapneumovir PCR Not Detected Influenza Type A (PCR) Not Detected Influenza Type B (PCR) Not Detected M. pneumoniae (PCR) Not Detected Parainfluenza 1 (PCR) Not Detected Parainfluenza 2 (PCR) Not Detected Parainfluenza 3 (PCR) Not Detected Parainfluenza 4 (PCR) Not Detected RSV (PCR) Not Detected Entero/Rhino (PCR) Not Detected 05/17/25 05/18/25 05/18/25 20:47 06:11 07:32 WBC 5.38 RBC 3.01 L Hgb 7.5 L Hct 24.6 L MCV 81.7 MCH 24.9 L MCHC 30.5 L RDW Std Deviation 46.8 H RDW Coeff of Marie 16.2 H Plt Count 255 MPV 9.8 Immature Gran % (Auto) 0.7 Neut % (Auto) 65.0 Lymph % (Auto) 18.4 [place] % (Auto) 11.3 Eos % (Auto) 3.9 Baso % (Auto) 0.7 Neut # (Auto) 3.49 Lymph # (Auto) 0.99 L [place] # (Auto) 0.61 H Eos # (Auto) 0.21 Baso # (Auto) 0.04 Immature Gran # (Auto) 0.04 Polychromasia 1+ Ovalocytes 1+ ESR Sodium Potassium Chloride Carbon Dioxide Anion Gap BUN Creatinine Est Cr Clr Drug Dosing eGFR BUN/Creatinine Ratio Glucose POC Glucose 114 H 125 H Calcium C-Reactive Protein 3.70 H Folate 13.87 Adenovirus (PCR) Anaplasma Smear See Comment Babesia Smear See Comment B. pertussis DNA (PCR) B.parapertussis DNA PCR Lyme Disease Screen Negative C. pneumoniae DNA (PCR) Coronavirus OC43 (PCR) Coronavirus HKU1 (PCR) Coronavirus 229E (PCR) SARS-CoV-2 (PCR) Coronavirus NL63 (PCR) Human Metapneumovir PCR Influenza Type A (PCR) Influenza Type B (PCR) M. pneumoniae (PCR) Parainfluenza 1 (PCR) Parainfluenza 2 (PCR) Parainfluenza 3 (PCR) Parainfluenza 4 (PCR) RSV (PCR) Entero/Rhino (PCR) Diagnostic Findings Microbiology 05/16/25 09:08 Blood Aerobic Blood Culture - Preliminary No growth in Aerobic bottle after 48 hours. 05/16/25 09:08 Blood Anaerobic Blood Culture - Preliminary Staphylococcus hominis 05/16/25 09:21 Blood Aerobic Blood Culture - Preliminary No growth in Aerobic bottle after 48 hours. 05/16/25 09:21 Blood Anaerobic Blood Culture - Preliminary No growth in Anaerobic bottle after 48 hours. 05/16/25 Unknown Urine,Clean Catch Urine Culture - Final Three types of organisms present, all low counts probable skin filipe. No further identifications or sensitivities to follow. 05/14/25 15:49 Blood Aerobic Blood Culture - Preliminary No growth in Aerobic bottle after 48 hours. 05/14/25 15:49 Blood Anaerobic Blood Culture - Final 05/14/25 14:42 Blood Aerobic Blood Culture - Preliminary No growth in Aerobic bottle after 48 hours. 05/14/25 14:42 Blood Anaerobic Blood Culture - Preliminary No growth in Anaerobic bottle after 48 hours. PG Care Time/CCT Total # of Minutes Spent Total Time Spent with Patient: Total time spent is greater than 50% in coordination of care (as documented) at patient's floor/unit and/or counseling patient: Coding Level of Care Code 51797 SUB INP/OBS CARE 350MIN Diagnoses Shock R57.9 Obesity (BMI 30-39.9) E66.9 Type 2 diabetes mellitus E11.9 Fe deficiency anemia D50.9 Fever R50.9 Positive blood culture R78.81 Fall W19.XXXA Chronically on benzodiazepine therapy Z79.899
[2025-05-18] MEDS: IRON SUCROSE 300 MG in SODIUM CHLORIDE 0.9% 250 ML IV ONE (14:35)
[2025-05-18] MEDS: SODIUM CHLORIDE 0.65% NA SOLN 45 ML (OCEAN) PRN (15:49)
[2025-05-18] MEDS: LORazepam 1 MG TAB PO STA (22:02)
[2025-05-19 06:47] LABS: Hematocrit (blood only) 27.5 % (37.0-47.0); Hemoglobin 8.3 g/dl (12.0-16.0); Mean Corpuscular Hemoglobin 24.6 pg (25.0-34.0); Mean Corpuscular Volume 81.4 fL (80.0-100.0); Platelet Count 265 K/uL (130-400); RDW Standard Deviation 47.1 fL (36.4-46.3); Red Blood Count 3.38 M/uL (4.20-5.40); White Blood Count 6.35 K/ul (4.8-10.8)
[2025-05-19 07:49] LABS: Anion Gap 7.0 (3-11); Calcium 8.4 mg/dl (8.6-10.3); Carbon Dioxide 28.0 mmol/L (21-32); Chloride 105.0 mmol/L (98-107); Potassium 3.7 mmol/L (3.5-5.1); Sodium 140.0 mmol/L (136-145)
[2025-05-19 07:54] LABS: Blood Urea Nitrogen 12.0 mg/dl (6-23); Creatinine Clr Calc Pharmacy 55.7 ml/min; Glucose 116.0 mg/dl (70-99(Fasting))
[2025-05-19] MEDS: IRON SUCROSE 300 MG in SODIUM CHLORIDE 0.9% 250 ML IV ONE (08:17)
[2025-05-19 10:51] VITALS: PULSE 76; RESP 16; TEMP 98.4; O2SAT 91
[2025-05-19 11:13] VITALS: BP 128/74
--- NOTE | 2025-05-19 12:10 | Discharge Summary ---
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 Required pressors briefly while in ICU. Developed fever 05/16/25 early AM (38.5 C). Continues with low-grade temps. #shock - -present on admission; presumed 2nd to medication side effects/overdose -required pressors in ICU -cortisol 7.1 -anti-hypertensives remain on hold and BPs have been very acceptable -no evidence of septic shock at admission nor cardiogenic shock (echo with EF>70% with small LV cavity but preserved systolic function) -small LV cavity would set her up for low BP IF she is volume contracted -no recurrent low BPs # Hypertension - BP meds are still on hold and BPs remain stable without them; does patient need her BP meds?? (losartan, HCTZ) -checked orthostatic BPs - negative # DM 2 - A1c 6.1%, continue diet control # CKD stage 3 - Cr remains stable # Microcytic anemia - ferritin consistently <20 - consistent with iron deficiency -s/p venofer x 1 while here -give 2nd dose today, and 3rd dose tomorrow -Hb <8 today - follow, repeat CBC am -should have GI w/u for this; last EGD/colonoscopy in per records -prior dx of microscopic colitis but no longer on budesonide daily? will inq uire with patient -last visit with GI - [place], Dr Solano -- 11/2024; recommend getting back with him for consideration of repeating her scopes # CVA 10/2024 - -cont ASA 81, statin for secondary prevention # chronic vertigo - -suspect inner ear based -stroke in 2023 involved the left temporal and frontal lobes as well insular cortex -cont prn meclizine; may benefit from ENT consult as outpatient for this chronic issue -orthostatics negative #fever - -2nd to sinusitis? -start ceftin 500mg BID x 7 days -saline spray -11/18 blood cx's + for staph hominis - contaminant -biofire resp panel negative -urine cx neg -lyme neg -anaplasmosis/babesia smears neg; DNA tests sent & pending #fall - had such 05/17 - -no apparent injury, but with neck/low back pain -obtained CT head, CT c-spine, CT l-spine - no ICH, fractures, etc -orthostatic BPs neg -etiology of falls?? #chronic benzo use - -to avoid/treat withdrawal will resume ativan 1mg at HS and ativan 2mg prn otherwise -has been on benzos for many years -PT/OT evals completed; cleared for home; should have outpatient PT, however, for gait & balance training updated extensively at bedside yesterday anticipate d/c to home tomorrow if labs tomorrow am are stable Admission HPI Per Admitting Provider Patient is a 79 yo female who is a poor historian. She was fixated on how she was not back to her nomrla self since she suffered a stroke but did not want to discuss what happened prior to coming to the [facility]. I obtained hisotry from discussion with ED. Patient was brought in by EMS for a possible overdose of trazodone. When EMS found her, her blood pressure was in the 50s and she was unresponsive. EMS did not find any scattered pills or bottles near her. Patient was given20 mcg of IV epinephrine which did not improve her clinical status. She appeared to have a difficult night the night before from her brother who is currently in a psych facility. She denies Suicidal ideation. She denies any chest pain or shortness of breath. Daughter reports she took a bunch of pills. Discharge Exam gen - NAD, in good spirits mouth - MMM neck - no JVD sinuses - tender to palpation maxillary sinuses b/l nose - deformity heart - RRR, s1 s2, no murmur lungs - CTA b/l abd - soft NT ND BS+ ext - pulses b/l feet 2+; no edema Discharge Plan Discharge Items Patient Disposition: Home - Home Health Services Reason For Visit: HYPOTENSION Discharge Diagnosis: 1. shock/hypotension - resolved; due to side effects from multiple medications 2. unintentional overdose leading to #1 3. suspected sinus infection 4. severe iron deficiency anemia 5. chronic, intermittent vertigo 6. history of stroke 10/2024 7. hypothyroidism 8. insomnia 9. history of hiatal hernia 10. pre-diabetes 11. controlled fall on 05/17/25 Activity: Resume your previous activity Activity Comment: gradually increase activities over the next 5 days Sexual Activity: Wait until after follow-up appointment Exercise/Sports: Wait until after follow-up appointment Non-emergency contact: Primary Care Provider and Specialist Call non-emergency contact if: you have any medication questions, your symptoms worsen and you have a fever Follow-up/Referrals: Preston Winters MD [Primary Care Provider] - (see Dr Winters or one of his associates within 7 days ) Tabitha Solano MD [Physician] - (please contact Dr Solano to schedule appointment to discuss getting EGD (upper endoscopy) and/or colonoscopy due to persistent iron deficiency anemia, mild trouble swallowing, etc) Diet: Carb Consistent or DM2 Addtl Attending Provider Instructions: Mrs Andrea, You were hospitalized due to severe hypotension/low blood pressure/shock. This was felt due to multiple medicines that were taken to help with sleep. The combination of these medicines led to side effects including severely low blood pressure. For the first portion of your stay you required care in the intensive care unit for the shock. After your blood pressure improved you were moved to the medical floor. We noted that you had several low-grade fevers in the latter half of your stay. Extensive work-up was done including testing for various viruses (all negative), lyme disease (negative), other tick-borne illnesses (thus far negative), pneumonia (no evidence for such), and blood/urine cultures. Urine culture was negative; no urinary infection was found. One out of 4 blood cultures was positive for "contamination" (false reading, no treatment required). You voiced you had various sinus symptoms, congestion, etc. Thus, you were started on antibiotics for sinusitis. During the hospitalization you had a fall while standing at the sink. Fortunately a staff member was with you when this happened. No injury occurred. CT head, CT neck, and CT of the lumbar spine were all negative for fractures. Your blood pressure medicines were held the entire hospitalization. Despite holding both medicines your blood pressures were very good. Finally, you have ongoing iron deficiency anemia. You received 3 IV iron infusions during your stay. Recommendations - 1. cefuroxime 500mg twice daily x 6 days, first dose tonight; this is your antibiotic for sinus infection 2. at some point in the next few days I would resume your omeprazole for heartburn/esophagus issues/stomach issues. I have prescribed omeprazole 40mg daily for you 3. if you have symptoms/signs of vaginal yeast infection you can take fluconazole 150mg x 1. This is an anti-yeast medicine 4. STOP your hydrochlorothiazide; STOP your potassium supplement 5. OK TO RESUME your losartan but just take 1/2 tablet (25mg) at bedtime for now 6. please check your blood pressures at home; I would check no more than twice/day. Please record your blood pressures in a notebook and show these numbers to Dr Winters 7. please talk to Dr Winters about your sleep issues; there are other medicines available for sleep other than zolpidem 8. OK to resume your lorazepam (ativan) as prior; do NOT drink alcohol with this medicine; do not drive if taking this medicine; do not take ativan with other sedative medicines 9. please stop your iron supplement; despite taking it you did not have improvement in your blood counts/iron levels; the 3 IV iron infusions will help raise your blood counts in the next 1-2 weeks. You may need future IV iron infusions depending on your blood counts. Dr Winters can monitor this 10. finally, please call Dr Solano's office to schedule an appointment to discuss your ongoing iron deficiency. He may want to repeat upper endoscopy and/or colonoscopy due to this chronic iron issue Return to [facility] if - * you have fevers over 100.5 degrees * you have worsening headache, neck pain, back pain * you have severe dizziness or vertigo * you have chest pains or shortness of breath * you develop severe diarrhea (3 or more liquid stools over 24-hour period) * any other concerns It was our pleasure to care for you! :) Patricio Pacheco, hospitalist Pending Studies at Discharge: No Stand-Alone Forms: My [facility], Smoking Cessation Medications and DC Order Prescriptions: New cefuroxime axetil 500 mg Tablet 500 mg PO BID 6 Days Qty: 12 0RF fluconazole 150 mg tablet 150 mg PO ONCE PRN (Reason: vaginal yeast infection) Qty: 1 0RF Continued ondansetron 4 mg tablet,disintegrating 4 mg PO Q4H PRN (Reason: nausea and vomiting) Qty: 60 0RF rosuvastatin 20 mg tablet 20 mg PO HS Qty: 90 3RF hydroxyzine HCl 25 mg tablet 25 mg PO BID PRN (Reason: itching) Qty: 90 1RF lorazepam 2 mg tablet 2 mg PO TID PRN (Reason: anxiety) Qty: 90 0RF Rx Instructions: monthly (when due) zolpidem 10 mg tablet 10 mg PO QPM Qty: 30 0RF Rx Instructions: Supervising physician Preston Winters [place] LEW[place] [id number] [place] [place] nebul[place] [facility] [place] See Rx Instructions .ROUTE .MEDSUPPLY Qty: 1 0RF Rx Instructions: Nebulizer with tubing x 1 week duloxetine 30 mg capsule,delayed release(DR/EC) See Rx Instructions PO .COMPLEX Qty: 270 3RF Rx Instructions: take 2 tabs in AM, take 1 tab in PM PO daily; nystatin-triamcinolone 100,000-0.1 unit/gram-% ointment 1 applic topical TID PRN (Reason: Skin Irritation) cyclosporine [Restasis] 0.05 % Dropperette 1 drp OPB AMPM allopurinol 100 mg tablet 100 mg PO DAILY Qty: 0 0RF cetirizine [Zyrtec] 10 mg Tablet 20 mg PO DAILY PRN (Reason: Allergy Symptoms) albuterol sulfate 90 mcg/actuation HFA aerosol inhaler 2 puff INHALATION Q6 PRN (Reason: Shortness Of Breath Or Wheezing) aspirin 81 mg Tablet,Delayed Release (Dr/Ec) 81 mg PO QAM Qty: 30 0RF acetaminophen [Tylenol Extra Strength] 500 mg Tablet 1,000 mg PO TID PRN (Reason: pain) Qty: 10 0RF Changed losartan 50 mg tablet 25 mg PO HS Qty: 0 0RF omeprazole 40 mg capsule,delayed release(DR/EC) 40 mg PO DAILY Qty: 30 5RF Rx Instructions: take on empty stomach first thing in morning Held potassium chloride 20 mEq tablet extended release 20 meq PO DAILY Qty: 30 2RF Hold Instructions: hold for now since you will be holding your hydrochlorothiazide hydrochlorothiazide 25 mg tablet 25 mg PO QAM Hold Instructions: hold unless Dr Winters advises you to resume Discontinued ascorbate calcium (vitamin C) 500 mg tablet 500 mg PO BID ferrous sulfate 325 mg (65 mg iron) Tablet,Delayed Release (Dr/Ec) 325 mg PO BIDM Qty: 60 0RF prednisone 10 mg tablet See Rx Instructions .ROUTE .COMPLEX Qty: 12 0RF Rx Instructions: 10 mg orally 3 times a day for 2 days, then 10 mg twice a day for 2 days, then 10 mg once a day for 2 days, then stop Discharge Orders: Discharge Order (Routine); Ordered 05/19/25 Ordered By: Patricio Bradley/Other Patient Handouts: GERD Lifestyle Changes Admission Data Admit Date/Time: 05/14/25 17:44 Attending Provider: Patricio Pacheco Admit Provider: Jorge Lim Primary Care Provider: Preston Winters. Other Providers: Sonido Mead; Jorge Lim; [facility] Other Interventions: Discharge Summary Assessment (RN) Last Done: 05/19/25 11:11 Hospital Stay Data Consultations 05/14/25 17:29 ED Decision to Admit Stat 05/14/25 17:44 Consult Hand Mold Maker Routine Diagnostic Imagining Performed 05/17/25 16:36 CT cervical spine wo con Urgent CT lumbar spine wo con Routine Head CT [CT head/brain wo con] Routine Pending Results Patient Have Any Pending Studies at Discharge: No Discharge Instructions Given to Patient (Per Discharging Provider) Mrs Andrea, You were hospitalized due to severe hypotension/low blood pressure/shock. This was felt due to multiple medicines that were taken to help with sleep. The combination of these medicines led to side effects including severely low blood pressure. For the first portion of your stay you required care in the intensive care unit for the shock. After your blood pressure improved you were moved to the medical floor. We noted that you had several low-grade fevers in the latter half of your stay. Extensive work-up was done including testing for various viruses (all negative), lyme disease (negative), other tick-borne illnesses (thus far negative), pneumonia (no evidence for such), and blood/urine cultures. Urine culture was negative; no urinary infection was found. One out of 4 blood cultures was positive for "contamination" (false reading, no treatment required). You voiced you had various sinus symptoms, congestion, etc. Thus, you were started on antibiotics for sinusitis. During the hospitalization you had a fall while standing at the sink. Fortunately a staff member was with you when this happened. No injury occurred. CT head, CT neck, and CT of the lumbar spine were all negative for fractures. Your blood pressure medicines were held the entire hospitalization. Despite holding both medicines your blood pressures were very good. Finally, you have ongoing iron deficiency anemia. You received 3 IV iron infusions during your stay. Recommendations - 1. cefuroxime 500mg twice daily x 6 days, first dose tonight; this is your antibiotic for sinus infection 2. at some point in the next few days I would resume your omeprazole for heartburn/esophagus issues/stomach issues. I have prescribed omeprazole 40mg daily for you 3. if you have symptoms/signs of vaginal yeast infection you can take fluconazole 150mg x 1. This is an anti-yeast medicine 4. STOP your hydrochlorothiazide; STOP your potassium supplement 5. OK TO RESUME your losartan but just take 1/2 tablet (25mg) at bedtime for now 6. please check your blood pressures at home; I would check no more than twice/day. Please record your blood pressures in a notebook and show these numbers to Dr Winters 7. please talk to Dr Winters about your sleep issues; there are other medicines available for sleep other than zolpidem 8. OK to resume your lorazepam (ativan) as prior; do NOT drink alcohol with this medicine; do not drive if taking this medicine; do not take ativan with other sedative medicines 9. please stop your iron supplement; despite taking it you did not have improvement in your blood counts/iron levels; the 3 IV iron infusions will help raise your blood counts in the next 1-2 weeks. You may need future IV iron infusions depending on your blood counts. Dr Winters can monitor this 10. finally, please call Dr Solano's office to schedule an appointment to discuss your ongoing iron deficiency. He may want to repeat upper endoscopy and/or colonoscopy due to this chronic iron issue Return to [facility] if - * you have fevers over 100.5 degrees * you have worsening headache, neck pain, back pain * you have severe dizziness or vertigo * you have chest pains or shortness of breath * you develop severe diarrhea (3 or more liquid stools over 24-hour period) * any other concerns It was our pleasure to care for you! 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
== END 2025-05-19 13:27 | disposition home health service (06) | DRG 917 ==
LOC: ED 14:00 → SUATTDRO 17:44 → 1E 17:44 → 2E 05-15 22:24

== ENCOUNTER 2025-11-05 16:41 | Observation (INO) ==
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
[2025-11-05 18:15] LABS: Hematocrit (blood only) 42.2 % (37.0-47.0); Hemoglobin 14.0 g/dL (12.0-16.0); Immature Granulocytes # (auto) 0.04 K/uL (0.01-0.20); Immature Granulocytes % (auto) 0.5 %; Mean Corpuscular Hemoglobin 26.5 pg (25.0-34.0); Mean Corpuscular Volume 79.9 fL (80.0-100.0); Platelet Count 302 K/uL (130-400); RDW Standard Deviation 45.1 fL (36.4-46.3); Red Blood Count 5.28 M/uL (4.20-5.40); White Blood Count 7.31 K/ul (4.8-10.8)
[2025-11-05 18:34] LABS: Alanine Aminotransferase 14 U/L (7-52); Albumin Globulin Ratio 1.6 (0.9-2); Albumin Level 4.6 gm/dl (3.4-5.0); Alkaline Phosphatase 62 U/L (34-104); Anion Gap 9 (3-11); Bilirubin,Total 0.5 mg/dl (0.2-1.0); Blood Urea Nitrogen 22 mg/dl (6-23); Calcium 10.2 mg/dl (8.6-10.3); Carbon Dioxide 27 mmol/L (21-32); Chloride 104 mmol/L (98-107); Globulin 2.9 gm/dl (2.5-4.0); Glucose 98 mg/dl (70-99(Fasting)); Lipase 26 U/L (11-82); Potassium 3.5 mmol/L (3.5-5.1); Sodium 140 mmol/L (136-145); Total Protein 7.5 gm/dl (6.0-8.3)
[2025-11-05 18:41] LABS: INR 1.0 (0.9-1.1); Partial Thromboplastin Time 23 Seconds (21-31); Prothrombin Time 10.3 Seconds (9.0-12.0)
--- NOTE | 2025-11-05 18:41 | XRay Report ---
EXAM: X-ray chest one-view portable CLINICAL HISTORY: Chest pain PRIORS: None TECHNIQUE: Erect portable AP FINDINGS: The chest is well-expanded. A large hiatal hernia present. No airspace consolidation, effusion or congestive changes. Heart size is normal. No pneumothorax. Trachea is patent. Surgical clips and round microcalcification noted in the left breast notified on 09/24/2025 CT Osseous structures demonstrate no acute abnormality. No radiopaque foreign body. IMPRESSION: No plain film evidence of an acute cardiopulmonary process. Large hiatal hernia. ACT 112: Positive. There are findings on this examination that require communication between the performing entity and the patient following Patient Test Result Information Act ([place] ACT 112) guidelines. Electronically signed by Jo Montes 11-05-2025 6:40 PM
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
[2025-11-05] MEDS: Heparin IV Adult Wt-Based Standard *NO* INITIAL Bolus Protocol IV STA (19:22)
[2025-11-05] MEDS: HEPARIN 25000 UNIT/500 ML D5W 25,000 UNITS/500 ML BAG IV SCH ×2 (19:31→23:27)
[2025-11-05] MEDS ORDERED: POLYETHYLENE (MIRALAX) 17 GM PACK PO PRN (20:25)
[2025-11-05] MEDS ORDERED: ALBUTEROL HFA 8 GM INHALER INH PRN (20:25)
[2025-11-05] MEDS ORDERED: CETIRIZINE HCL 10 MG TABLET PO PRN (20:25)
[2025-11-05] MEDS ORDERED: ONDANSETRON 4 MG OD TAB PO PRN (20:25)
[2025-11-05] MEDS ORDERED: MELATONIN 3 MG TAB PO PRN (20:25)
[2025-11-05] MEDS ORDERED: LORazepam 1 MG TAB PO PRN (20:55)
[2025-11-05] MEDS ORDERED: ARTIFICIAL TEARS OPB PRN (20:59)
[2025-11-05] MEDS: ONDANSETRON INJ 2 MG/ML 2 ML VIAL IV PRN (21:45)
[2025-11-05] MEDS ORDERED: Nursing to Pharmacy Communication SCH (23:15)
[2025-11-05] MEDS: ROSUVASTATIN CALCIUM 20 MG TAB PO SCH (23:26)
[2025-11-05] MEDS: LOSARTAN POTASSIUM 25 MG TAB PO SCH (23:26)
[2025-11-05] MEDS: ZOLPIDEM TARTRATE 5 MG TAB PO SCH (23:26)
[2025-11-05] MEDS: Heparin IV Adult Wt-Based Low-Dose *NO* INITIAL Bolus Protocol IV STA (23:27)
[2025-11-06 01:21] LABS: Hematocrit (blood only) 36.3 % (37.0-47.0); Hemoglobin 11.8 g/dL (12.0-16.0); Immature Granulocytes # (auto) 0.05 K/uL (0.01-0.20); Immature Granulocytes % (auto) 0.8 %; Mean Corpuscular Hemoglobin 26.3 pg (25.0-34.0); Mean Corpuscular Volume 80.8 fL (80.0-100.0); Platelet Count 254 K/uL (130-400); RDW Standard Deviation 45.6 fL (36.4-46.3); Red Blood Count 4.49 M/uL (4.20-5.40); White Blood Count 6.18 K/ul (4.8-10.8)
[2025-11-06 01:35] LABS: Anion Gap 8.0 (3-11); Blood Urea Nitrogen 26.0 mg/dl (6-23); Calcium 9.2 mg/dl (8.6-10.3); Carbon Dioxide 28.0 mmol/L (21-32); Chloride 102.0 mmol/L (98-107); Creatinine Clr Calc Pharmacy 41.0 ml/min; Potassium 3.4 mmol/L (3.5-5.1); Sodium 138.0 mmol/L (136-145)
[2025-11-06 01:43] LABS: ANTI-Xa, UFH(UnfractionatedHep 0.30 IU/ml (0.3-0.7)
[2025-11-06 07:47] LABS: ANTI-Xa, UFH(UnfractionatedHep 0.30 IU/ml (0.3-0.7)
[2025-11-06] MEDS: BUDESONIDE EC 3 MG CAP PO SCH (08:15)
[2025-11-06] MEDS: ASPIRIN 81 MG ECTAB PO SCH (08:15)
[2025-11-06] MEDS: POTASSIUM CHLORIDE CRTAB 20 MEQ TABCR PO SCH (08:16)
--- NOTE | 2025-11-06 09:18 | Hospitalist Progress Note ---
Date of Service November 06, 2025 Assessment & Plan (1) Dural venous sinus thrombosis: (2) History of CVA (cerebrovascular accident): (3) Falls: (4) Mixed hyperlipidemia: Plan Beatriz is a 79yo lady with PMH of stroke, basal cell carcinoma of face, breast cancer who is here for persistent waxing and waning headaches and nausea for 6 weeks. Imaging notable for dural venous sinus thrombosis involving transverse sinuses left more than right and she is being managed for the same. Heparin drip started on admission, still neurologically stable. She does have recurrent headache, being managed as below. #Dural Venous Sinus Thrombosis h/o HERRERA for 6 weeks, thrombosis could date this duration. -Continue low dose heparin drip -Labs including BMP and CBC Unremarkable. -Pain management: Tylenol 650mg prn pain/fever, Oxycodone 2.5mg prn for moderate pain, Oxycodone 5mg prn for severe pain - Neurology eval: pending. Appreciate rec. - Duration of DOAC will depend on her coagulation status, awaiting labs. #History of Falls -PT/OT eval #History of CVA -continue aspirin 81mg/daily -continue rosuvastatin #Microscopic Colitis -budesonide 6mg daily -pt does not need steroid stress dosing at this time #HTN BP at goal -continue amlodipine 5mg qdaily -continue losartan 25mg qhs -hold hydrochlorothiazide 25mg for now #Anxiety -duloxetine 90mg qdaily -lorazepam 2mg tid prn #Insomnia -zolpidem 10mg qhs Allergies/Asthma -albuterol inhaler prn -cetirizine 10mg qdaily Gout -allopurinol 200mg qdaily Dispo: Pending stabilization, likely home tomorrow. VTE prophylaxis: heparin Diet: heart healthy Conditional Code Status Admission and Anticipated Discharge Date Admission Date: November 05, 2025 Supervising Physician Co-Signing Physician Notes Resident Physician Supervision Note: I personally examined the patient and verified all kim points of history and exam, discussed case, and agree with decision making with Dr. Powell Developments in this case is the patient may not have dural sinus thrombosis. I was conversing with Dr. Domingo as he will be the neurology consultation he felt the patient may not fit clinically and asked the departmental secretary radiology to reevaluate her MR scan that was reading this dural sinus thrombosis. Via electronic communication Dr. Domingo relayed to Dr. Lee does not feel the patient has a transverse venous thrombosis and the findings are more consistent with a an arachnoid granulations that were previously seen on a CT scan in October 2024 therefore at that point in time he did not recommend anticoagulation. We explained this to the patient hold her anticoagulation and have asked Dr. Domingo to see the patient in formal consultation. We are continue to treat her symptomatic headache Patient is awake and alert she has no formal neurological deficits at the bedside she voiced an understanding of the explanation of the reevaluation of her brain imaging studies. Further plans will be based upon Dr. Domingo's evaluation but likely the patient if her symptoms are controlled may go home without anticoagulation on11/07/2025 I discussed the case with the resident and agree with the findings and plan as documented in the note. Any exceptions or clarifications are listed here: Documented By: Andrew Hart MD Fartun Henderson was lying on bed comfortably when I was on bedside, she is having recurrent headache, rating 8/10 this morning. It similar HERRERA that she has been having since last few weeks. Its worse when she moves her head. She used to have some HERRERA here and there before this, but was feeling the HERRERA was really abnormal to her since last 8 weeks. She was investigated with CAT scan which was normal, f/b MRI which showed some changes, hence MR venogram was ordered by her PCP which showed dural venous Clot. She does not endorse having any neurologic deficit like weakness, abnormal sensory changes. Review of Systems Review of Systems: per HPI Physical Exam Physical Exam: Constitutional: Well appearing, No acute distress, Nose asymmetrical, h/o BBC surgery and grafting. HEENT: Normocephalic, No conjunctival injection. Pupil RRR BL, Normal EOM, visual field. CVS: S1 S2 no murmur, Regular Rhythm, no LE edema Respiratory: BL equal air entry with NVBS. No rhonchi, wheezes, or crackles. No increased work of breathing GI: Soft, Nondistended, Nontender, Normal Bowel sounds + MSK: No gross deformities noted Skin: Warm, Dry, No rashes Neuro: Alert, Oriented to TPP, No Focal deficit CN II-XII intact. Psych: Mood and Affect congruent, Cooperative on exam Results & Data Results & Data Vital Signs (Past 12 Hours) Vital Signs Temp Pulse Pulse Resp BP Pulse Ox O2 Del Method 11/06/25 08:33 36.5 C 76 18 126/84 93 Room Air 11/06/25 07:45 68 11/06/25 03:53 36.5 C 75 18 103/70 94 Room Air 11/05/25 22:00 36.7 C 75 16 127/80 95 Room Air Resident Activity Tracking Resident Involvement: Resident Care Provided Care Provided: Adult Hospital Medicine
[2025-11-06 12:58] VITALS: BP 118/75; RESP 17; TEMP 98.1; O2SAT 92
[2025-11-06] MEDS: ALUMINUM/MAGNESIUM SUSP 30 ML UDC PO PRN (14:11)
[2025-11-06] MEDS: ACETAMINOPHEN 325 MG TAB PO PRN (16:10)
--- NOTE | 2025-11-06 17:41 | Billing Data ---
Date of Service November 06, 2025 Coding Level of Care Code 66211 SUB INP/OBS CARE
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
--- NOTE | 2025-11-06 17:57 | Communication Note ---
Date of Service: November 06, 2025 By CMS guidelines, a determination that the admission or continued stay is not medically necessary has been made by a member of the UR committee and a ph ysician for this hospital stay, therefore a Code 44 will be completed and the Inpatient admission will be changed to outpatient.
[2025-11-06 18:05] VITALS: PULSE 80
--- NOTE | 2025-11-06 18:43 | Electrocardiogram Report ---
Test Reason : Blood Pressure : */* mmHG Vent. Rate : 83 BPM Atrial Rate : 83 BPM P-R Int : 144 ms QRS Dur : 88 ms QT Int : 390 ms P-R-T Axes : 36 -18 7 degrees QTcB Int : 458 ms Normal sinus rhythm Cannot rule out Inferior infarct , age undetermined Incomplete right bundle branch block Abnormal ECG When compared with ECG of 24-Sep-2025 17:55, No significant change was found Confirmed by Evelio Cool ([id number]) on 11/06/2025 6:42:52 PM Referred By: REFERRED SELF Confirmed By: Evelio Cool
--- NOTE | 2025-11-06 18:59 | Discharge Summary ---
Date of Service November 06, 2025 Admission HPI Per Admitting Provider Beatriz is a 79yo lady with PMH of stroke, basal cell carcinoma of face, breast cancer who is here for persistent waxing and waning headaches for 6 weeks. She was in her usual state of health until about 6 weeks ago when she bumped her head on a cabinet which caused a "goose egg" bump on her left posterior-lateral head associated with headache and nausea. She went to the ED at that time given her history of stroke, workup was negative for acute pathological process and she was sent home. The headaches persisted off and on since that time, and about 4 weeks ago, the pt had a ground level fall but did not seek care since imaging was negative so she thought she just had a concussion. Due to the sx persisting, her PCP ordered a head MRI, the MRI was notable for flow stasis vs cerebral thrombosis and further imaging was ordered which was abnormal and pt was advised to go to the ED. Imaging notable for dural venous sinus thrombosis. Pt complains of headache located in the occipital area but can change locations. Denies fever, chills, vision changes, new CP, SOB, or abdominal pain. Admission Exam Per Admitting Provider GA: well groomed, well nourished, appears anxious. AAOx3 HEENT: head normocephalic, EOMI, nasal deformity, nares patent, external ear anatomy normal RESP: vesicular breath sounds b/l. No wheezes, rhonchi, or rales CARDIOVASCULAR: S1 and S2 heard. No murmurs, rubs, or gallops. Radial pulses 2+ b/l RRR GI: Normoactive bowel sounds, no tenderness or masses felt to palpation MSK: no gross abnormalities or focal deficits SKIN: warm, dry, no edema PSYCH: appropriate mood and affect NEURO: CN 2-12 intact. speech fluent. Rapid alternating movements, fvup-fw-mmon testing normal. Strength in UE and LE 5/5 b/l. Principal Diagnosis Complex Migraine. Discharge Exam Constitutional: Well appearing, No acute distress, Nose asymmetrical, h/o BBC surgery and grafting. HEENT: Normocephalic, No conjunctival injection. Pupil RRR BL, Normal EOM, visual field. CVS: S1 S2 no murmur, Regular Rhythm, no LE edema Respiratory: BL equal air entry with NVBS. No rhonchi, wheezes, or crackles. No increased work of breathing GI: Soft, Nondistended, Nontender, Normal Bowel sounds + MSK: No gross deformities noted Skin: Warm, Dry, No rashes Neuro: Alert, Oriented to TPP, No Focal deficit CN II-XII intact. Psych: Mood and Affect congruent, Cooperative on exam Discharge Data Allergies Allergy/AdvReac Type Severity Reaction Status Date / Time latex Allergy Intermediate contact Verified 10/30/25 16:31 skin rash adhesive Allergy Mild BAND-AIDS Verified 10/30/25 16:31 - RED SKIN Sulfa (Sulfonamide Allergy Unknown Hives Verified 10/30/25 16:31 Antibiotics) sulfamethoxazole Allergy Unknown Hives Verified 10/30/25 16:31 [From Bactrim] trimethoprim [From Bactrim] Allergy Unknown Hives Verified 10/30/25 16:31 Consultations 11/05/25 18:44 ED Decision to Admit Stat 11/06/25 09:36 Consult Neurology Routine Hospital Course (1) Dural venous sinus thrombosis: (2) History of CVA (cerebrovascular accident): (3) Falls: (4) Mixed hyperlipidemia: Anila Henderson is a 79yo lady with PMH of stroke, basal cell carcinoma of face, breast cancer who is here for persistent waxing and waning headaches and nausea for 6 weeks. Imaging notable for dural venous sinus thrombosis involving transverse sinuses left more than right and she is being managed for the same. Heparin drip started on admission, still neurologically stable. She does have recurrent headache, being managed as below. #Dural Venous Sinus Thrombosis INITIAL DX THIS, WITHDRAWN AFTER DR. DOMINGO (NEUROLOGIST) EVALUATED THE IMAGES. Kindly See attestation below. Migraine: - Started Depakote #History of Falls -PT/OT: can go home #History of CVA -continue aspirin 81mg/daily -continue rosuvastatin #Microscopic Colitis -budesonide 6mg daily -pt does not need steroid stress dosing at this time #HTN BP at goal -continue amlodipine 5mg qdaily -continue losartan 25mg qhs -hold hydrochlorothiazide 25mg for now #Anxiety -duloxetine 90mg qdaily -lorazepam 2mg tid prn #Insomnia -zolpidem 10mg qhs Allergies/Asthma -albuterol inhaler prn -cetirizine 10mg qdaily Gout -allopurinol 200mg qdaily Dispo: Stable to home tomorrow. s Total Time Total Time Spent Total Time Spent (In Minutes): See attending's attestation Discharge Plan Discharge Items Patient Disposition: Home - Self-Care Reason For Visit: HEADACHE Discharge Diagnosis: non typical migraine blood clot in vein has been ruled out Condition on Discharge: Fair Activity: Resume your previous activity Non-emergency contact: Primary Care Provider and Neurologist Call non-emergency contact if: your symptoms worsen Follow-up/Referrals: Sonido Domingo MD [Physician] - Pro,Preston Rivero MD [Primary Care Provider] - Diet: Regular Addtl Attending Provider Instructions: please get and start your new medicine for headache, depakote 500 mg twice a day until you follow up with DR Domingo if you have any questions about the medicine reach our to Dr Ramires nurse Pending Studies at Discharge: No Stand-Alone Forms: My [employer], Smoking Cessation Medications and DC Order Prescriptions: New divalproex [Depakote ER] 500 mg tablet extended release 24 hr 500 mg PO BID Qty: 60 3RF Continued potassium chloride 20 mEq tablet extended release 20 meq PO DAILY Qty: 30 2RF Hold Instructions: hold for now since you will be holding your hydrochlo rothiazide hydroxyzine HCl 25 mg tablet 25 mg PO BID PRN (Reason: itching) Qty: 90 1RF fluconazole 150 mg tablet 150 mg PO ONCE PRN (Reason: vaginal yeast infection) Qty: 2 0RF Rx Instructions: can repeat dose after 72 hours if sxs do not resolve prednisone 20 mg tablet 40 mg PO BID Qty: 10 0RF ondansetron 4 mg tablet,disintegrating 4 mg PO Q4H PRN (Reason: nausea and vomiting) Qty: 60 0RF zolpidem 10 mg tablet 10 mg PO QPM Qty: 30 3RF Rx Instructions: Supervising physician Preston Winters MD [facility] [id number] oxybutynin chloride 5 mg tablet 5 mg PO DAILY Qty: 90 1RF lorazepam 2 mg tablet 2 mg PO TID PRN (Reason: anxiety) Qty: 90 0RF Rx Instructions: monthly (when due) losartan 50 mg tablet 25 mg PO HS Qty: 90 0RF allopurinol 100 mg tablet 200 mg PO DAILY Qty: 180 1RF hydrochlorothiazide 25 mg tablet 25 mg PO QAM Qty: 90 1RF Hold Instructions: hold unless Dr advises you to resume rosuvastatin 20 mg tablet 20 mg PO HS Qty: 90 3RF (DME) nebulizers Misc See Rx Instructions .ROUTE .MEDSUPPLY Qty: 1 0RF Rx Instructions: Nebulizer with tubing x 1 week amlodipine 5 mg tablet 5 mg PO DAILY Qty: 90 3RF budesonide 3 mg capsule,delayed,extend.release 6 mg PO DAILY nystatin-triamcinolone 100,000-0.1 unit/gram-% ointment 1 applic topical TID PRN (Reason: Skin Irritation) cyclosporine [Restasis] 0.05 % Dropperette 1 drp OPB AMPM oxycodone 5 mg tablet 5 mg PO Q6H PRN (Reason: pain) Qty: 14 0RF cetirizine [Zyrtec] 10 mg Tablet 20 mg PO DAILY PRN (Reason: Allergy Symptoms) albuterol sulfate 90 mcg/actuation HFA aerosol inhaler 2 puff INHALATION Q6 PRN (Reason: Shortness Of Breath Or Wheezing) aspirin 81 mg Tablet,Delayed Release (Dr/Ec) 81 mg PO QAM Qty: 30 0RF acetaminophen [Tylenol Extra Strength] 500 mg Tablet 1,000 mg PO TID PRN (Reason: pain) Qty: 10 0RF duloxetine 30 mg capsule,delayed release(DR/EC) 60 mg PO QAM Rx Instructions: take 2 tabs in AM duloxetine 30 mg Capsule,Delayed Release(Dr/Ec) 30 mg PO QPM omeprazole 40 mg capsule,delayed release(DR/EC) 40 mg PO DAILYBB Rx Instructions: take on empty stomach first thing in morning Discharge Orders: Discharge Order (Routine); Ordered 11/06/25 Ordered By: Andrew Hart Admission Data Admit Date/Time: 11/05/25 19:37 Attending Provider: Andrew Hart Admit Provider: Evelio Maldonado Primary Care Provider: Preston Winters Other Providers: Dmitry Britton; Sonido Domingo Other Interventions: Discharge Summary Assessment (RN) Last Done: 11/06/25 18:05 Supervising Physician Co-Signing Physician Notes Resident Physician Supervision Note: I personally examined the patient and verified all kim points of history and exam, discussed case, and agree with decision making with Dr. Powell Developments in this case is the patient may not have dural sinus thrombosis. I was conversing with Dr. Domingo as he will be the neurology consultation he felt the patient may not fit clinically and asked the threshing department supervisor radiology to reevaluate her MR scan that was reading this dural sinus thrombosis. Via electronic communication Dr. Domingo relayed to Dr. Lee does not feel the patient has a transverse venous thrombosis and the findings are more consistent with a an arachnoid granulations that were previously seen on a CT scan in October 2024 therefore at that point in time he did not recommend anticoagulation. We explained this to the patient hold her anticoagulation and have asked Dr. Domingo to see the patient in formal consultation. We are continue to treat her symptomatic headache Patient is awake and alert she has no formal neurological deficits at the bedside she voiced an understanding of the explanation of the reevaluation of her brain imaging studies. Further plans will be based upon Dr. Domingo's evaluation but likely the patient if her symptoms are controlled may go home without anticoagulation on11/07/2025 I discussed the case with the resident and agree with the findings and plan as documented in the note. Any exceptions or clarifications are listed here: Documented By: Andrew Hart MD
--- NOTE | 2025-11-07 07:33 | Billing Data ---
Date of Service November 06, 2025 Coding Level of Care Code 42969 IN/OBS DISCH 30 MIN/LESS
--- NOTE | 2025-11-07 19:27 | Billing Data ---
Date of Service November 07, 2025 Coding Level of Care Code 73627 INT INP/OBS CARE
[2025-11-11 17:58] LABS: Factor 5 Mutation NEGATIVE
== END 2025-11-06 18:42 | disposition home or self-care (01) ==
LOC: ED 16:41 → EDINP 19:37 → INTOOBSV 19:37 → SUATTDRO 19:37 → 4W 20:26